=== PATIENT | male | born 1950 | race Caucasian/White ===

== ENCOUNTER → 2016-11-12 15:54 | Outpatient (CLI) | payer MEDICARE | END | disposition home or self-care (01) | LOC: D.MRI 15:54 | DX: M54.2 Cervicalgia (principal) ==

== ENCOUNTER → 2017-02-06 08:30 | Outpatient (CLI) | payer MEDICARE | END | disposition home or self-care (01) | LOC: D.RT 01-09 09:00 | DX: J44.9 Chronic obstructive pulmonary disease, unspecified (principal) ==

== ENCOUNTER → 2017-03-16 13:21 | Outpatient (CLI) | payer MEDICARE ==
[2017-03-17 11:17] LABS: ANA REFLEX - DIRECT Negative (Negative)
== END | disposition home or self-care (01) ==
LOC: D.CT 13:21
PROVIDERS: Internal Medicine Pulmonary Disease
DX: R93.8 Abnormal findings on diagnostic imaging of other specified body structures (principal)

== ENCOUNTER 2017-08-14 22:25 | Emergency (ER) | payer MEDICARE ==
[2017-08-14 23:23] LABS: BASOPHILS 0.2 % (0-2); HEMATOCRIT 46.5 % (42.0-54.0); HEMOGLOBIN 16.3 g/dL (13.5-17.5); IMMATURE GRANULOCYTES 0.6 % (0-5); LYMPHOCYTES 31.7 % (15-50); MCH 30.5 pg (26.0-34.0); MCHC 35.1 g/dL (31.0-37.0); MCV 86.9 fL (80.0-100.0); MEAN PLATELET VOLUME 9.4 fL (7.4-10.4); MONOCYTES 8.7 % (2-11); NEUTROPHILS 56.8 % (40-80); PLATELET COUNT 206 10x3/uL (130-400); RBC 5.35 10x6/uL (4.20-6.10); WBC 11.6 10x3/uL (4.8-10.8)
[2017-08-14 23:44] LABS: ALBUMIN 3.6 g/dL (3.4-5.0); ANION GAP 15.1 mmol/L (8-16); BILIRUBIN - TOTAL 0.27 mg/dL (0.2-1.3); CALCIUM 9.3 mg/dL (8.5-10.1); CARBON DIOXIDE 27.5 mmol/L (21.0-32.0); CREATININE - SERUM 1.5 mg/dL (0.6-1.3); POTASSIUM - SERUM 3.6 mmol/L (3.5-5.1); PROTEIN - SERUM 7.3 g/dL (6.4-8.2)
[2017-08-14 23:53] LABS: TROPONIN-I 0.022 ng/mL (0.000-0.060)
== END 2017-08-15 00:40 | disposition home or self-care (01) ==
LOC: D.ER 22:25
PROVIDERS: Emergency Medicine
DX: I10 Essential (primary) hypertension (principal); F17.200 Nicotine dependence, unspecified, uncomplicated; I44.7 Left bundle-branch block, unspecified

== ENCOUNTER 2017-10-23 17:26 | Emergency (ER) | payer MEDICARE | END 2017-10-23 21:07 | disposition home or self-care (01) | LOC: D.ER 17:26 | DX: K02.9 Dental caries, unspecified (principal); K08.89 Other specified disorders of teeth and supporting structures; S02.5XXA Fracture of tooth (traumatic), initial encounter for closed fracture; I10 Essential (primary) hypertension ==

== ENCOUNTER → 2017-12-25 10:34 | Outpatient (CLI) | payer MEDICARE ==
[~2017-12-25 10:34] MED LIST: BROVANA15 MCG/2 M INH; INDERAL LA120 MG PO; LIPITOR40 MG PO; PROVENTIL/2.5 MG/3 M INH
[2018-02-04 07:09] VITALS: BMI 30.4
== END | disposition home or self-care (01) ==
LOC: D.CT 10:34
DX: J44.9 Chronic obstructive pulmonary disease, unspecified (principal); I73.9 Peripheral vascular disease, unspecified

== ENCOUNTER 2018-02-04 06:16 | Outpatient (CLI) | payer MEDICARE ==
[~2018-02-04] VITALS: Ht 172.7 cm; Wt 90.9 kg
--- NOTE | ~2018-02-04 | HEMODYNAMI ---
PATIENT:CISCO MCNEAL MEDICAL RECORD: [id number] : 50 LOCATION:[facility] ADMISSION DATE: 02/04/18 Generatedon:02/04/20189:22 Patient name: CISCO MCNEAL Patient #: [id number] SSN: DO B: 1950 Date of study: 02/04/2018 Page: Of Hemodynamic Procedure Report Patient Data Patient Demographics Procedure consent was obtained First Name: CISCO Gender: Male Last Name: ELIZABET : 1950 Middle Initial: PINEDA Age: 67 year(s) Patient #: [id number] Race: Unknown Additional ID: [id number] Contact details Address: [address] [place] [address] State: [place] City: [place] Zip code: [address] Admission Admission Data Admission Date: 02/04/2018 Admission Time: 6:16 Procedure Procedure Types Cath Procedure Peripheral Cath Diagnostic Procedure Abd/Extremity Extremities Bilat Lower Extremity Procedure Description Procedure Date Procedure Date: 02/04/2018 Procedure Start Time: 8:30 Procedure Staff Name Function Yaw Washburn MD Performing Physician Alexey Grove RT Monitor Stephanie Arce RT Scrub Lynn Thomas RN Nurse Procedure Data Cath Procedure Fluoroscopy Diagnostic fluoroscopy Total fluoroscopy Time: 5.1 time: 5.1 min min Diagnostic fluoroscopy Total fluoroscopy dose: 562 dose: 562 mGy mGy Contrast Material Contrast Material Type Amount (ml) Isovue 300 125 Entry Location Entry Primary Successful Side Size Upsize Upsize Entry Closure Succes sful Closure Location (Fr) 1 (Fr) 2 (Fr) Remarks Device Remarks Femoral Right 5 Fr artery Procedure Medications Medication Administration Route Dosage Lidocaine 1% added to field 20 Heparin Flush Bag added to field 3 bags (1000units/500ml NS) Versed I.V. 1 mg Fentanyl I.V. 50 mcg Hemodynamics Rest Heart Rate: 63 (bpm) Snapshots Pre Cath Intra NCS Post Cath Vital Signs Time Heart Resp SPO2 etCO2 NIBP (mmHg) Rhythm Pain Sedation Rate (ipm) (%) (mmHg) Status Level (bpm) 7:51:13 61 97 38.2 171/79(137) NSR 0 (11) 10(A) , No pain 7:55:40 60 16 97 35.9 157/82(140) NSR 0 (11) 10(A) , No pain 8:00:04 66 11 97 32.9 145/88(123) NSR 0 (11) 10(A) , No pain 8:05:03 74 19 98 32.9 Measuring NSR 0 (11) 10(A) , No pain 8:05:36 65 15 97 37.4 169/88(145) NSR 0 (11) 10(A) , No pain 8:09:58 73 13 96 35.9 166/87(138) NSR 0 (11) 10(A) , No pain 8:14:20 59 7 97 39.7 153/79(132) NSR 0 (11) 10(A) , No pain 8:18:42 66 14 97 33.7 163/89(136) NSR 0 (11) 10(A) , No pain 8:23:02 61 17 97 38.2 150/78(136) NSR 0 (11) 10(A) , No pain 8:27:25 63 17 98 36.7 162/86(145) NSR 0 (11) 10(A) , No pain 8:31:49 59 18 98 35.9 163/82(140) NSR 0 (11) 10(A) , No pain 8:36:13 64 19 98 39.6 156/91(143) NSR 0 (11) 8(A) , No pain 8:40:33 69 21 97 35.2 176/98(149) NSR 0 (11) 8(A) , No pain 8:45:00 65 18 97 28.4 168/86(127) NSR 0 (11) 8(A) , No pain 8:49:26 70 5 97 30 161/86(132) NSR 0 (11) 8(A) , No pain 8:53:48 69 18 97 0 165/84(134) NSR 0 (11) 8(A) , No pain 8:58:14 69 17 97 0 160/85(128) NSR 0 (11) 8(A) , No pain 9:02:40 65 15 97 38.9 164/82(130) NSR 0 (11) 8(A) , No pain 9:07:01 67 17 97 38.9 159/91(139) NSR 0 (11) 8(A) , No pain 9:11:25 65 13 97 39.7 165/91(125) NSR 0 (11) 8(A) , No pain 9:15:47 71 20 97 34.4 167/99(139) NSR 0 (11) 8(A) , No pain 9:20:11 71 19 96 24.7 169/91(143) NSR 0 (11) 8(A) , No pain Medications Time Medication Route Dose Verified Delivered Reason Notes Effect iveness by by 7:45:52 Lidocaine 1% added 20ml Yaw Tidwell used for to vial Maddison Washburn MD procedure field GARZA 7:46:10 Heparin Flush added 3 Yaw Tidwell used for Bag to bags Maddison Washburn MD procedure (1000units/500ml field GARZA NS) 8:34:23 Versed I.V. 1 mg Yaw Bailey for William Washburn RN sedation 8:34:33 Fentanyl I.V. 50 Yaw Lynn for mcg William Washburn RN sedation Procedure Log Time Note 7:38:23 Alexey Grove RT (R) (CV) sent for patient. Start room use. 7:38:34 Time tracking: Regular hours (M-F 7:00 - 5:00) 7:38:38 Plan of Care:Hemodynamics will remain stable., Cardiac rhythm will remain stable., Comfort level will be maintained., Respiratory function will remain adequate., Patient/ family verbilizes understanding of procedure., Procedure tolerated without complication., Recovers from procedure without complications.. 7:38:59 Patient received from Outpatients to IR Alert and oriented. Tansferred to table in Supine position. 7:39:00 Correct patient and procedure confirmed by team. 7:39:03 Signed procedure consent form obtained from patient. 7:39:04 ECG and BP/O2 sat monitors applied to patient. 7:39:05 Full Disclosure recording started 7:39:05 7:39:09 H&P Date Dictated: 02/04/2018 H&P Addendum completed by physician on day of procedure. (MUST COMPLETE FOR ALL OUTPATIENTS). 7:39:10 Pre-procedure instructions explained to patient. 7:39:11 Pre-op teaching completed and patient verbalized understanding. 7:39:12 Family in waiting room. 7:39:14 Patient NPO since Midnight. 7:39:19 Is the patient allergic to Iodine/contrast media? No. 7:39:20 Is patient on blood thinner?Yes 7:39:22 ACC The patient was administered the following blood thiners within the last 24 hours: ACCAspirin 7:39:24 Patient diabetic? No. 7:39:29 7:39:29 ----Pre-sedation anethsthesia assessment.---- 7:39:33 Previous problem with sedation/anesthesia? No ? 7:39:34 Snore? No 7:39:36 Sleep apnea? No 7:39:37 Deviated septum? No 7:39:38 Opens mouth fully? Yes 7:39:39 Sticks out tongue? Yes 7:39:46 Airway obstruction? Yes copd 7:39:50 Dentures? Yes out 7:39:53 7:45:52 Lidocaine 1% 20ml vial added to field was administered by Yaw Washburn MD; used for procedure; 7:46:10 Heparin Flush Bag (1000units/500ml NS) 3 bags added to field was administered by Yaw Washburn MD; used for procedure; 7:49:42 Use device set IR Diagnostic 7:49:43 ACIST Syringe (80255) opened to sterile field. 7:49:43 ACIST Hand Control (54346) opened to sterile field. 7:49:44 ACIST Manifold (19500) opened to sterile field. 7:49:44 Bag Decanter (2002S) opened to sterile field. 7:49:45 Sterile Angiographic Pack opened to sterile field. 7:49:45 Tegaderm 4 x 4 (1626W) opened to sterile field. 7:49:51 Vital chart was started 7:49:52 Baseline sample Acquired. 7:49:58 Pre procedure: right dorsailis pedis pulse Doppler 7:50:01 Pre procedure: left dorsailis pedis pulse Doppler 7:50:04 Pre procedure: right posterior tibial pulse Doppler 7:50:08 Pre procedure: left posterior tibial pulse Doppler 7:50:12 Patient pain scale 0/10 no pain. 7:50:18 IV patent on arrival in left hand with 0.9% NaCl at KVO. 7:50:32 Bilateral groins area was prepped with chlora-prep and draped in sterile fashion 7:50:34 Alarms reviewed by R. N. 7:50:34 Sharps counted by scrub and verified by R.N. 8:29:38 Physician arrived 8:29:38 --------ALL STOP TIME OUT------ 8:29:40 Final Timeout: patient, procedure, and site verified with staff and physician. All members of the team are in agreement. 8:29:48 Bilateral groins site verified by team. 8:29:52 Sedation plan: IV Moderate Sedation Medication:Versed, Fentanyl 8:30:09 Procedure started. 8:30:12 Local anesthetic to left femerol artery with Lidocaine 1% by Yaw Washburn MD.INITIAL ACCESS ONLY 8:30:33 Micropuncture VSI 4FR kit opened to sterile field. 8:30:33 SHEATH 5FR Tutor Key (ETE481) opened to sterile field. 8:30:34 TUBING Contrast Injection High Pressure (ENJ474A) opened to sterile field. 8:30:34 TUBING Contrast Injection High Pressure (UBV689P) opened to sterile field. 8:30:35 DOC .035 wire (S76958) opened to sterile field. 8:30:35 ALAS 260 wire (D54004) opened to sterile field. 8:30:35 SHEATH 6FR Destination (RSR01) opened to sterile field. 8:30:36 Angiodynamics Omniflush 5Fr 65cm (88465726) opened to sterile field. 8:30:45 A 5 Fr sheath was inserted into the Right Femoral artery 8:34:23 Versed 1 mg I.V. was administered by Lynn Thomas RN; for sedation; 8:34:33 Fentanyl 50 mcg I.V. was administered by Lynn Thomas RN; for sedation; 8:42:36 GLIDE WIRE ANGLE 260cm (OA7961) opened to sterile field. 8:43:02 TORQUE DEVICE PLASTIC .038 ( TD01) opened to sterile field. 8:45:42 GLIDE CATHETER 5FR ANGLED 100cm (CG508) opened to sterile field. 8:52:32 AMPLATZ Super stiff 3mm J 260cm wire ([id number]) opened to sterile field. 9:08:57 EXOSEAL 5Fr (EX500) opened to sterile field. 9:09:03 Procedure ended.(Physican Out) 9:09:20 Fluoroscopy time 05.10 minutes. 9:09:24 Fluoroscopy dose: 562 mGy 9:09:24 Flurop Dose total: 562 9:09:27 Sharps counted by scrub and verified by R.N. 9:09:28 Insertion/operative site no bleeding no hematoma. 9:09:32 Post-op/insertion site Left Femoral artery dressed using a 4 x 4 and Tegaderm. 9:10:48 Post right femoral artery:stable 9:11:24 Post Procedure Pulses reassessed and unchanged 9:11:29 Post procedure instruction explained to patient.Patient verbalizes understanding. 9:11:36 Procedure and supply charges have been captured, reviewed, submitted and are correct. 9:15:08 Contrast amount:Isovue 300 125ml. 9:22:13 Report given to Outpatients. 9:22:16 Patient transfered to Outpatients with Stretcher. 9:22:55 Vital chart was stopped Device Usage Item Name Manufacture Quantity Catalog Hospital Part Current Minim al Lot# / Number Charge Number Stock Stock Serial# Code ACIST Syringe Acist Medical 1 57560 703370 493394 908947 20 (24432) Systems Inc ACIST Hand Acist Medical 1 22575 466889 500643 621037 5 Control Systems Inc (86683) ACIST Acist Medical 1 33723 911990 246725 356415 5 Manifold Systems Inc (53904) Bag Decanter Microtek 1 2001S 705044 20836 172248 5 (2001S) Medical Inc. Sterile Cardinal 1 [id number] 702506 820202 5 Angiographic Health Pack Tegaderm 4 x 3M 1 1626W 941151 531968 583117 5 4 (1626W) Micropuncture VSI VASCULAR 1 7266V 802242 863250 5 VSI 4FR kit SOLUTIONS SHEATH 5FR Terumo 1 XBX548 805748 238230 106371 40 Tutor Key (ROH330) TUBING [facility] 2 DUK144B 069424 893082 679168 5 Contrast Injection High Pressure (BFS194P) DOC .035 wire [employer] 1 E44713 461422 887979 5 (L99736) ALAS 260 [employer] 1 J59992 364371 60303 283272 5 0311508 wire (D19998) SHEATH 6FR Terumo 1 RSR01 800643 64091 272122 5 Destination (RSR01) Angiodynamics Angiodynamics 1 18126206 484776 563720 445592 5 Omniflush 5Fr 65cm (42222719) GLIDE WIRE Terumo 1 DD3957 455783 530255 051592 5 ANGLE 260cm (VM7371) TORQUE DEVICE [place] 1 TD01 129077 023156 379039 5 PLASTIC .038 Scientific ( TD01) GLIDE Terumo 1 CG508 982284 64171 497258 4 CATHETER 5FR ANGLED 100cm (CG508) AMPLATZ Super [place] 1 [id number] 501088 075303 5 stiff 3mm J Scientific 260cm wire ([id number]) EXOSEAL 5Fr Cardinal 1 EX500 868540 650723 217177 10 [id number] (EX500) Health Signature Audit [place] Stage Time Signature Unsigned Intra-Procedure 02/04/2018 Alexey 9:22:52 AM [place] RT (R) (CV) Signatures Monitor : Alexey Signature : [place] RT Date : Time : [facility] [address] [facility] [address] [place] [address]
[2018-02-04 06:36] LABS: BASOPHILS 0.2 % (0-2); EOSINOPHILS 1.8 % (0-7); HEMATOCRIT 45.4 % (42.0-54.0); HEMOGLOBIN 15.9 g/dL (13.5-17.5); IMMATURE GRANULOCYTES 0.3 % (0-5); LYMPHOCYTES 29.6 % (15-50); MCH 30.7 pg (26.0-34.0); MCV 87.6 fL (80.0-100.0); MEAN PLATELET VOLUME 9.3 fL (7.4-10.4); MONOCYTES 10.9 % (2-11); NEUTROPHILS 57.2 % (40-80); RBC 5.18 10x6/uL (4.20-6.10); RDW 13.6 % (11.5-14.5)
[2018-02-04 06:42] LABS: PLATELET COUNT 158 10x3/uL (130-400)
[2018-02-04 06:47] LABS: ANION GAP 12.7 mmol/L (8-16); CALCIUM 8.5 mg/dL (8.5-10.1); CARBON DIOXIDE 26.9 mmol/L (21.0-32.0); CREATININE - SERUM 1.3 mg/dL (0.6-1.3); POTASSIUM - SERUM 3.6 mmol/L (3.5-5.1)
[2018-02-04 06:48] LABS: APTT 26.5 SECONDS (22.8-39.4); INR 0.96 (0.85-1.17); PROTIME 12.4 SECONDS (11.6-15.0)
[2018-02-04] MEDS ORDERED: BROVANA15 MCG/2 M INH (06:54)
[2018-02-04] MEDS ORDERED: PROVENTIL/2.5 MG/3 M INH (06:56)
[2018-02-04] MEDS ORDERED: INDERAL LA120 MG PO (06:56)
[2018-02-04] MEDS ORDERED: LIPITOR40 MG PO (06:58)
[2018-02-04 07:09] VITALS: Ht 172.7 cm; Wt 90.9 kg
== END 2018-02-04 12:40 | disposition home or self-care (01) ==
LOC: D.SP 06:16
PROVIDERS: General Practice
DX: I70.293 Other atherosclerosis of native arteries of extremities, bilateral legs (principal); I70.92 Chronic total occlusion of artery of the extremities; Z01.812 Encounter for preprocedural laboratory examination

== ENCOUNTER 2018-03-02 10:55 | Outpatient (CLI) | payer MEDICARE ==
[~2018-03-02] VITALS: Ht 172.7 cm; Wt 90.9 kg
--- NOTE | ~2018-03-02 | HEMODYNAMI ---
PATIENT:CISCO MCNEAL MEDICAL RECORD: [id number] : 50 LOCATION:[facility] ADMISSION DATE: 03/02/18 Generatedon:03/02/201814:19 Patient name: CISCO MCNEAL Patient #: [id number] SSN: DO B: 1950 Date of study: Page: Of Hemodynamic Procedure Report Patient Data Patient Demographics Procedure consent was obtained First Name: CISCO Gender: Male Last Name: ELIZABET : 1950 Middle Initial: PINEDA Age: 68 year(s) Patient #: [id number] Race: Unknown Additional ID: [id number] Contact details Address: [address] [place] [address] State: [place] City: [place] Zip code: [address] Admission Admission Data Admission Date: 03/02/2018 Admission Time: 10:55 Procedure Procedure Types Cath Procedure Peripheral Cath Diagnostic Procedure Miscellaneous Procedure Description Procedure Staff Name Function Yaw Washburn MD Performing Physician Alexey Grove RT Monitor Stephanie Arce RT Scrub Lynn Thomas RN Nurse Ab Gamboa MD Additional personnel Hemodynamics Rest Heart Rate: 56 (bpm) Snapshots Pre Cath Intra NCS Post Cath Vital Signs Time Heart Resp SPO2 etCO2 NIBP (mmHg) Rhythm Pain Sedation Rate (ipm) (%) (mmHg) Status Level (bpm) 13:42:46 56 24 95 31.5 Measuring NSR 0 (11) 10(A) , No pain 13:43:09 56 24 95 36 158/76(124) NSR 0 (11) 10(A) , No pain 13:48:08 56 24 97 33 Measuring NSR 0 (11) 10(A) , No pain 13:48:16 57 24 97 27 148/76(118) NSR 0 (11) 10(A) , No pain 13:52:40 55 10 97 33.8 156/73(123) NSR 0 (11) 10(A) , No pain 13:57:07 53 23 97 33.8 159/73(121) NSR 0 (11) 10(A) , No pain 14:01:29 56 4 98 33.8 151/86(114) NSR 0 (11) 10(A) , No pain 14:05:28 56 97 33 No Cuff NSR 0 (11) 10(A) , No pain 14:09:28 53 19 98 21.8 No Cuff NSR 0 (11) 10(A) , No pain 14:13:28 57 7 98 38.3 No Cuff NSR 0 (11) 10(A) , No pain 14:17:27 56 10 98 37.6 No Cuff NSR 0 (11) 10(A) , No pain Procedure Log Time Note 13:21:59 Alexey Grove RT (R) (CV) sent for patient. Start room use. 13:22:13 Time tracking: Regular hours (M-F 7:00 - 5:00) 13:22:18 Plan of Care:Hemodynamics will remain stable., Cardiac rhythm will remain stable., Comfort level will be maintained., Respiratory function will remain adequate., Patient/ family verbilizes understanding of procedure., Procedure tolerated without complication., Recovers from procedure without complications.. 13:22:26 Patient received from Outpatients to IR Alert and oriented. Tansferred to table in Supine position. 13:22:33 Warm blankets applied, and dex hugger turned on for patient comfort. 13:22:35 Correct patient and procedure confirmed by team. 13:22:36 Signed procedure consent form obtained from patient. 13:22:38 ECG and BP/O2 sat monitors applied to patient. 13:22:43 - 13:22:47 H&P Date Dictated: 03/02/2018 H&P Addendum completed by physician on day of procedure. (MUST COMPLETE FOR ALL OUTPATIENTS). 13:22:49 Pre-procedure instructions explained to patient. 13:22:50 Pre-op teaching completed and patient verbalized understanding. 13:22:53 Family in waiting room. 13:22:57 Patient NPO since Midnight. 13:23:19 SEE ANESTHESIA NOTE FOR POST PROCEDURE TIVA 13:23:20 - 13:23:33 ACIST Syringe (24674) opened to sterile field. 13:23:34 ACIST Hand Control (01337) opened to sterile field. 13:23:34 ACIST Manifold (27819) opened to sterile field. 13:23:35 Bag Decanter () opened to sterile field. 13:23:36 Sterile Angiographic Pack opened to sterile field. 13:23:37 Tegaderm 4 x 4 (1626W) opened to sterile field. 13:33:39 KAITLIN SALGUERO present and monitoring patient for TIVA. 13:35:05 Right groin area was prepped with chlora-prep and draped in sterile fashion 13:35:08 Right PEDAL area was prepped with chlora-prep and draped in sterile fashion 13:40:58 Vital chart was started 13:41:01 Baseline sample Acquired. 13:45:20 Pre procedure: right dorsailis pedis pulse Doppler 13:45:23 Pre procedure: left dorsailis pedis pulse Doppler 13:45:26 Pre procedure: right posterior tibial pulse Doppler 14:17:59 CASE CX DUE TO EKG ABNORMALITY 14:18:13 PT SENT BACK TO ROOM 14:19:08 Vital chart was stopped Device Usage Item Name Manufacture Quantity Catalog Hospital Part Current Minimal Lot# / Number Charge Number Stock Stock Serial# Code ACIST Acist 1 20338 884517 755780 769623 20 Syringe Medical (70788) Systems Inc ACIST Hand Acist 1 13582 262623 612263 362606 5 Control Medical (57567) Systems Inc ACIST Acist 1 18470 093477 042172 037303 5 Manifold Medical (05504) Systems Inc Bag Decanter Microtek 1 301540 40802 312544 5 () Medical Inc. Sterile Cardinal 1 [id number] 944451 820469 5 Angiographic Health Pack Tegaderm 4 x 3M 1 1626W 952784 971467 974700 5 4 (1626W) Signature Audit [place] Stage Time Signature Unsigned Intra-Procedure 03/02/2018 Alexey 2:19:06 PM [place] RT (R) (CV) Signatures Monitor : Alexey Signature : [place] RT Date : Time : [place] [id number] [place] [address]
[2018-03-02 11:31] LABS: BASOPHILS 0.2 % (0-2); EOSINOPHILS 1.6 % (0-7); HEMATOCRIT 42.1 % (42.0-54.0); HEMOGLOBIN 14.7 g/dL (13.5-17.5); IMMATURE GRANULOCYTES 0.3 % (0-5); LYMPHOCYTES 25.5 % (15-50); MCH 30.7 pg (26.0-34.0); MCHC 34.9 g/dL (31.0-37.0); MCV 87.9 fL (80.0-100.0); MEAN PLATELET VOLUME 10.2 fL (7.4-10.4); MONOCYTES 13.6 % (2-11); NEUTROPHILS 58.8 % (40-80); PLATELET COUNT 167 10x3/uL (130-400); RBC 4.79 10x6/uL (4.20-6.10); RDW 14.3 % (11.5-14.5)
[2018-03-02 11:32] LABS: ANION GAP 12.6 mmol/L (8-16); CALCIUM 8.9 mg/dL (8.5-10.1); CARBON DIOXIDE 26.4 mmol/L (21.0-32.0); CREATININE - SERUM 1.1 mg/dL (0.6-1.3)
[2018-03-02 11:37] LABS: APTT 26.7 SECONDS (22.8-39.4); INR 0.98 (0.85-1.17); PROTIME 12.6 SECONDS (11.6-15.0)
[2018-03-02] MEDS ORDERED: NORVASC10 MG PO (12:14)
[2018-03-02] MEDS ORDERED: COZAAR100 MG PO (12:15)
[2018-03-02] MEDS ORDERED: METOPROLOL TART50 MG PO (12:17)
[2018-03-02 12:23] VITALS: BP 172/75; Ht 172.7 cm; Wt 90.9 kg
[2018-03-02] MEDS ORDERED: FLOVENT DI50 MCG/DIS INH (12:30)
[2018-03-02] MEDS ORDERED: PLAVIX75 MG PO (12:30)
== END 2018-03-02 14:53 | disposition home or self-care (01) ==
LOC: D.SP 10:55 → D.RAD 12:00 → D.SP 12:00
PROVIDERS: General Practice
DX: I73.9 Peripheral vascular disease, unspecified (principal); R07.9 Chest pain, unspecified; Z01.812 Encounter for preprocedural laboratory examination; Z53.09 Procedure and treatment not carried out because of other contraindication

== ENCOUNTER 2018-03-02 17:35 | Emergency (ER) | payer MEDICARE ==
[~2018-03-02] VITALS: Ht 172.7 cm; Wt 90.9 kg
[~2018-03-02 17:35] MED LIST changes: +COZAAR100 MG PO; +FLOVENT DI50 MCG/DIS INH; +METOPROLOL TART50 MG PO; +NORVASC10 MG PO; +PLAVIX75 MG PO
[2018-03-02 17:39] VITALS: BP 140/74; Ht 172.7 cm; Wt 90.9 kg
[2018-03-02 18:18] LABS: BASOPHILS 0.2 % (0-2); EOSINOPHILS 1.4 % (0-7); HEMATOCRIT 42.2 % (42.0-54.0); HEMOGLOBIN 14.8 g/dL (13.5-17.5); IMMATURE GRANULOCYTES 0.3 % (0-5); LYMPHOCYTES 17.5 % (15-50); MCH 30.8 pg (26.0-34.0); MCHC 35.1 g/dL (31.0-37.0); MCV 87.9 fL (80.0-100.0); MEAN PLATELET VOLUME 10.2 fL (7.4-10.4); MONOCYTES 11.6 % (2-11); PLATELET COUNT 152 10x3/uL (130-400); RDW 14.3 % (11.5-14.5); WBC 11.7 10x3/uL (4.8-10.8)
[2018-03-02 18:42] LABS: ALBUMIN 3.2 g/dL (3.4-5.0); ALKALINE PHOSPHATASE 48 U/L (46-116); ALT (SGPT) 35 U/L (10-68); BILIRUBIN - TOTAL 0.37 mg/dL (0.2-1.3); CALC OSMOLALITY 281 mosm/kg (275-300); CALCIUM 8.7 mg/dL (8.5-10.1); CARBON DIOXIDE 30.3 mmol/L (21.0-32.0); CHLORIDE - SERUM 104 mmol/L (98-107); CREATININE - SERUM 1.2 mg/dL (0.6-1.3); GLUCOSE 129 mg/dL (74-106); POTASSIUM - SERUM 4.2 mmol/L (3.5-5.1); PROTEIN - SERUM 6.9 g/dL (6.4-8.2); SODIUM 139 mmol/L (136-145); UREA NITROGEN 18 mg/dL (7-18); eGFR NON AFRICAN AMERICAN 64 mL/min (90-120)
[2018-03-02 18:57] LABS: CKMB 3.8 U/L (0.0-3.6); CREATINE KINASE 87 UL (21-232); MAGNESIUM - SERUM 2.2 mg/dL (1.8-2.4)
[2018-03-02 19:04] LABS: TROPONIN-I 0.072 ng/mL (0.000-0.060)
== END 2018-03-02 19:01 | disposition left against medical advice (07) ==
LOC: D.ER 17:35
PROVIDERS: Family Medicine
DX: R07.9 Chest pain, unspecified (principal); T17.928A Food in respiratory tract, part unspecified causing other injury, initial encounter; X58.XXXA Exposure to other specified factors, initial encounter; Y93.89 Activity, other specified; Y92.019 Unspecified place in single-family (private) house as the place of occurrence of the external cause; R79.89 Other specified abnormal findings of blood chemistry; I10 Essential (primary) hypertension; J44.9 Chronic obstructive pulmonary disease, unspecified; F17.200 Nicotine dependence, unspecified, uncomplicated; I44.7 Left bundle-branch block, unspecified

== ENCOUNTER 2018-03-12 19:26 | Inpatient (IN) | payer MEDICARE ==
[~2018-03-12] VITALS: Ht 172.7 cm; Wt 92.7 kg
[2018-03-12] MEDS ORDERED: ALBUTEROL2.5 MG/3 M INH ×2 (20:21→23:21)
[2018-03-12 21:10] LABS: ALBUMIN 3.5 g/dL (3.4-5.0); ANION GAP 10.4 mmol/L (8-16); BILIRUBIN - TOTAL 0.3 mg/dL (0.2-1.3); CALCIUM 8.8 mg/dL (8.5-10.1); CARBON DIOXIDE 27.2 mmol/L (21.0-32.0); CREATININE - SERUM 1.3 mg/dL (0.6-1.3); POTASSIUM - SERUM 3.6 mmol/L (3.5-5.1); PROTEIN - SERUM 7.3 g/dL (6.4-8.2)
[2018-03-12 21:14] LABS: BASOPHILS 0.2 % (0-2); EOSINOPHILS 2.9 % (0-7); HEMATOCRIT 44.5 % (42.0-54.0); HEMOGLOBIN 15.7 g/dL (13.5-17.5); IMMATURE GRANULOCYTES 0.3 % (0-5); LYMPHOCYTES 26.5 % (15-50); MCHC 35.3 g/dL (31.0-37.0); MCV 87.9 fL (80.0-100.0); MEAN PLATELET VOLUME 9.4 fL (7.4-10.4); MONOCYTES 8.7 % (2-11); NEUTROPHILS 61.4 % (40-80); RBC 5.06 10x6/uL (4.20-6.10); RDW 14.3 % (11.5-14.5); WBC 11.2 10x3/uL (4.8-10.8)
[2018-03-12 21:20] LABS: PLATELET COUNT 200 10x3/uL (130-400)
[2018-03-12 23:10] VITALS: BP 155/78; BMI 31.0
[2018-03-12] MEDS ORDERED: FLUTICASONE PRO16 GM NASAL (23:21)
[2018-03-12] MEDS ORDERED: BROVANA15 MCG/2 M INH (23:21)
[2018-03-12] MEDS ORDERED: METOPROLOL TART50 MG PO (23:22)
[2018-03-12] MEDS ORDERED: COZAAR100 MG PO (23:22)
[2018-03-12] MEDS ORDERED: NORVASC10 MG PO (23:22)
[2018-03-12] MEDS ORDERED: PLAVIX75 MG PO (23:23)
[2018-03-13 07:51] LABS: BASOPHILS 0.2 % (0-2); EOSINOPHILS 2.8 % (0-7); HEMATOCRIT 40.6 % (42.0-54.0); IMMATURE GRANULOCYTES 0.2 % (0-5); LYMPHOCYTES 30.1 % (15-50); MCH 30.6 pg (26.0-34.0); MCHC 34.5 g/dL (31.0-37.0); MCV 88.6 fL (80.0-100.0); MEAN PLATELET VOLUME 9.3 fL (7.4-10.4); MONOCYTES 11.8 % (2-11); NEUTROPHILS 54.9 % (40-80); PLATELET COUNT 190 10x3/uL (130-400); RBC 4.58 10x6/uL (4.20-6.10); RDW 14.4 % (11.5-14.5); WBC 9.5 10x3/uL (4.8-10.8)
[2018-03-13 07:54] LABS: ANION GAP 11.4 mmol/L (8-16); CALCIUM 8.2 mg/dL (8.5-10.1); CARBON DIOXIDE 27.4 mmol/L (21.0-32.0); CREATININE - SERUM 1.3 mg/dL (0.6-1.3); POTASSIUM - SERUM 3.8 mmol/L (3.5-5.1)
[2018-03-13 07:59] VITALS: BP 113/71
[2018-03-13 09:58] VITALS: Ht 172.7 cm; Wt 92.7 kg
[2018-03-13 20:56] VITALS: BP 113/60
[2018-03-14 04:55] VITALS: BP 124/64
[2018-03-14 05:29] LABS: BASOPHILS 0.2 % (0-2); EOSINOPHILS 2.6 % (0-7); HEMATOCRIT 42.3 % (42.0-54.0); HEMOGLOBIN 14.6 g/dL (13.5-17.5); IMMATURE GRANULOCYTES 0.4 % (0-5); LYMPHOCYTES 21.6 % (15-50); MCH 30.6 pg (26.0-34.0); MCHC 34.5 g/dL (31.0-37.0); MCV 88.7 fL (80.0-100.0); MEAN PLATELET VOLUME 9.3 fL (7.4-10.4); MONOCYTES 12.5 % (2-11); NEUTROPHILS 62.7 % (40-80); PLATELET COUNT 196 10x3/uL (130-400); RBC 4.77 10x6/uL (4.20-6.10); RDW 14.3 % (11.5-14.5)
[2018-03-14 05:37] LABS: WBC 12.8 10x3/uL (4.8-10.8)
[2018-03-14 05:53] LABS: ALBUMIN 3.4 g/dL (3.4-5.0); ANION GAP 11.6 mmol/L (8-16); BILIRUBIN - TOTAL 0.33 mg/dL (0.2-1.3); CALCIUM 8.8 mg/dL (8.5-10.1); CARBON DIOXIDE 26.4 mmol/L (21.0-32.0); CREATININE - SERUM 1.4 mg/dL (0.6-1.3)
[2018-03-14 08:49] VITALS: BP 150/54
[2018-03-14] MEDS ORDERED: CHLORTHALIDONE25 MG PO (11:30)
[2018-03-14] MEDS ORDERED: CATAPRES0.1 MG PO (11:31)
[2018-03-14] MEDS ORDERED: ALDACTONE100 MG PO (11:31)
[2018-03-14] MEDS ORDERED: FLORAJEN3 CAPS460 MG PO (11:32)
[2018-03-14] MEDS ORDERED: CLEOCIN HCL300 MG PO (11:32)
[2018-03-14] MEDS ORDERED: ZOVIRAX400 MG PO (11:34)
[2018-03-14] MEDS ORDERED: SILVADENE20 GM TP (11:34)
[2018-03-14] MEDS ORDERED: HYDROCODONE-APA1 TAB PO (11:35)
== END 2018-03-14 13:31 | disposition home or self-care (01) | DRG 603 ==
LOC: D.MS 19:26
PROVIDERS: Family Medicine
DX: L03.113 Cellulitis of right upper limb (principal); J44.9 Chronic obstructive pulmonary disease, unspecified; I10 Essential (primary) hypertension; F17.200 Nicotine dependence, unspecified, uncomplicated

== ENCOUNTER 2018-04-27 09:21 | Outpatient (CLI) | payer MEDICARE ==
[~2018-04-27] VITALS: Ht 172.7 cm; Wt 90.9 kg
--- NOTE | ~2018-04-27 | HEMODYNAMI ---
PATIENT:CISCO MCNEAL MEDICAL RECORD: [id number] : 50 LOCATION:[facility] ADMISSION DATE: 04/27/18 Generatedon:04/27/201815:13 Patient name: CISCO MCNEAL Patient #: [id number] SSN: DO B: 1950 Date of study: 04/27/2018 Page: Of Hemodynamic Procedure Report Patient Data Patient Demographics Procedure consent was obtained First Name: CISCO Gender: Male Last Name: ELIZABET : 1950 Middle Initial: PINEDA Age: 68 year(s) Patient #: [id number] Race: Unknown Additional ID: [id number] Contact details [address]: [address] [place] [address] State: [place] City: [place] Zip code: [address] Admission Admission Data Admission Date: 04/27/2018 Admission Time: 9:21 Procedure Procedure Types Cath Procedure Peripheral Cath Diagnostic Procedure Abd/Extremity Extremities Procedure Description Procedure Date Procedure Date: 04/27/2018 Procedure Start Time: 12:29 Procedure Staff Name Function Alexey Grove RT Monitor Jone Veliz MD Additional personnel Yaw Washburn MD Performing Physician Stephanie Ulloa Scrub Lynn Thomas RN Nurse Janey Parks RN Nurse Procedure Data Cath Procedure Fluoroscopy Diagnostic fluoroscopy Total fluoroscopy Time: time: 20.1 min 20.1 min Diagnostic fluoroscopy Total fluoroscopy dose: 554 dose: 554 mGy mGy Contrast Material Contrast Material Type Amount (ml) Isovue 300 106 Entry Location Entry Primary Successful Side Size Upsize Upsize Entry Closure Lopes ccessful Closure Location (Fr) 1 (Fr) 2 (Fr) Remarks Device Remarks Brachial Left 5 Fr 6 Fr Manual artery Long Compression Diagnostic catheters Device Type Used For End Catheter Placement Merit ULTRA BOLUS FLUSH 5Fr 90CM catheter ([id number]) Procedure Medications Medication Administration Route Dosage Heparin Bolus I.V. 5000 units Heparin Bolus I.V. 2000 units Hemodynamics Rest Heart Rate: 54 (bpm) Snapshots Pre Cath Intra NCS Post Cath Vital Signs Time Heart Resp SPO2 etCO2 NIBP (mmHg) Rhythm Pain Sedation Rate (ipm) (%) (mmHg) Status Level (bpm) 12:04:23 52 17 98 0 136/68(93) NSR 0 (11) 10(A) , No pain 12:09:22 66 23 99 0 Measuring NSR 0 (11) 10(A) , No pain 12:09:27 59 27 98 0 118/59(86) NSR 0 (11) 10(A) , No pain 12:14:26 73 20 100 0 Measuring NSR 0 (11) 10(A) , No pain 12:14:28 73 20 100 0 169/92(137) NSR 0 (11) 10(A) , No pain 12:18:50 65 14 100 0 153/79(117) NSR 0 (11) 10(A) , No pain 12:21:11 63 14 100 0 140/72(106) NSR 0 (11) 10(A) , No pain 12:23:29 59 14 100 0 136/69(100) NSR 0 (11) 10(A) , No pain 12:26:29 62 15 100 0 Measuring NSR 0 () 10(A) , No pain 12:26:33 62 15 100 0 120/61(90) NSR 0 (11) 10(A) , No pain 12:28:46 60 15 100 0 113/57(86) NSR 0 (11) 10(A) , No pain 12:31:01 51 15 100 0 101/56(78) NSR 0 (11) 10(A) , No pain 12:33:08 51 15 100 0 97/49(61) NSR 0 (11) 10(A) , No pain 12:35:21 48 15 100 0 85/35(52) NSR 0 (11) 10(A) , No pain 12:37:30 48 15 100 0 79/40(63) NSR 0 (11) 10(A) , No pain 12:39:37 45 15 100 0 84/37(56) NSR 0 (11) 10(A) , No pain 12:41:46 46 15 100 0 74/40(62) NSR 0 (11) 10(A) , No pain 12:43:51 47 15 100 0 83/36(62) NSR 0 (11) 10(A) , No pain 12:45:58 62 15 100 0 73/40(60) NSR 0 (11) 10(A) , No pain 12:48:01 63 15 100 0 78/42(62) NSR 0 (11) 10(A) , No pain 12:50:06 64 14 100 0 83/44(67) NSR 0 (11) 10(A) , No pain 12:52:13 66 36 100 0 87/42(60) NSR 0 () 10(A) , No pain 12:54:18 66 10 100 0 97/53(72) NSR 0 (11) 10(A) , No pain 12:56:27 65 12 100 0 108/52(72) NSR 0 () 10(A) , No pain 12:58:36 66 12 100 0 104/56(72) NSR 0 () 10(A) , No pain 13:00:47 66 12 100 0 106/54(83) NSR 0 () 10(A) , No pain 13:02:56 65 12 100 0 117/60(95) NSR 0 () 10(A) , No pain 13:05:07 66 11 100 0 115/58(92) NSR 0 () 10(A) , No pain 13:07:19 63 12 100 0 98/48(66) NSR 0 () 10(A) , No pain 13:09:32 62 12 100 0 85/38(56) NSR 0 () 10(A) , No pain 13:11:38 60 12 100 0 82/45(67) NSR 0 (11) 10(A) , No pain 13:13:43 61 11 100 0 85/47(71) NSR 0 (11) 10(A) , No pain 13:15:49 61 12 100 0 87/51(74) NSR 0 (11) 10(A) , No pain 13:17:55 62 12 100 0 92/47(64) NSR 0 (11) 10(A) , No pain 13:20:02 62 11 100 0 99/52(72) NSR 0 (11) 10(A) , No pain 13:22:09 63 12 100 0 106/59(81) NSR 0 (11) 10(A) , No pain 13:24:19 63 12 100 0 110/63(82) NSR 0 (11) 10(A) , No pain 13:26:32 62 12 100 0 121/59(82) NSR 0 (11) 10(A) , No pain 13:28:47 62 11 100 0 111/60(84) NSR 0 (11) 10(A) , No pain 13:30:54 62 12 100 0 107/60(80) NSR 0 (11) 10(A) , No pain 13:33:05 62 12 100 0 113/57(68) NSR 0 (11) 10(A) , No pain 13:35:20 59 12 100 0 103/48(69) NSR 0 (11) 10(A) , No pain 13:37:29 59 12 100 0 103/54(92) NSR 0 (11) 10(A) , No pain 13:39:40 59 12 100 0 96/52(65) NSR 0 (11) 10(A) , No pain 13:41:49 61 12 100 0 105/52(78) NSR 0 (11) 10(A) , No pain 13:44:04 59 12 100 0 108/44(64) NSR 0 (11) 10(A) , No pain 13:46:18 64 12 100 0 100/44(65) NSR 0 (11) 10(A) , No pain 13:48:26 59 12 100 0 101/54(82) NSR 0 (11) 10(A) , No pain 13:50:33 62 12 100 0 94/55(73) NSR 0 (11) 10(A) , No pain 13:52:38 59 12 100 0 106/59(69) NSR 0 (11) 10(A) , No pain 13:54:52 64 12 100 0 108/53(76) NSR 0 (11) 10(A) , No pain 13:57:03 59 12 100 0 103/57(75) NSR 0 (11) 10(A) , No pain 13:59:12 60 12 100 0 106/61(79) NSR 0 (11) 10(A) , No pain 14:01:23 60 12 100 0 113/59(83) NSR 0 (11) 10(A) , No pain 14:03:38 58 12 100 0 101/49(68) NSR 0 (11) 10(A) , No pain 14:05:43 66 12 100 0 111/67(86) NSR 0 (11) 10(A) , No pain 14:07:50 63 11 100 0 119/75(103) NSR 0 (11) 10(A) , No pain 14:10:01 59 12 100 0 114/70(95) NSR 0 () 10(A) , No pain 14:12:10 62 11 100 0 122/69(96) NSR 0 (11) 10(A) , No pain 14:14:23 60 12 100 0 117/64(85) NSR 0 (11) 10(A) , No pain 14:16:34 64 12 100 0 110/57(78) NSR 0 (11) 10(A) , No pain 14:18:47 59 14 100 0 109/57(78) NSR 0 () 10(A) , No pain 14:20:56 63 14 100 0 108/64(73) NSR 0 (11) 10(A) , No pain 14:23:05 64 14 100 0 111/62(89) NSR 0 (11) 10(A) , No pain 14:25:15 61 13 100 0 119/69(97) NSR 0 (11) 10(A) , No pain 14:27:24 72 14 100 0 115/75(105) NSR 0 (11) 10(A) , No pain 14:29:35 62 13 100 0 123/65(85) NSR 0 (11) 10(A) , No pain 14:31:46 59 14 100 0 114/57(81) NSR 0 (11) 10(A) , No pain 14:33:57 58 13 100 0 107/55(72) NSR 0 (11) 10(A) , No pain 14:36:10 59 13 100 0 116/52(77) NSR 0 (11) 10(A) , No pain 14:38:21 60 14 100 0 107/56(78) NSR 0 (11) 10(A) , No pain 14:40:30 63 14 100 0 111/64(79) NSR 0 (11) 10(A) , No pain 14:42:39 63 4 100 0 110/68(86) NSR 0 (11) 10(A) , No pain 14:44:48 66 25 100 0 126/69(104) NSR 0 (11) 10(A) , No pain 14:47:00 68 25 100 0 132/81(103) NSR 0 (11) 10(A) , No pain 14:49:13 70 0 100 0 142/84(115) NSR 0 (11) 10(A) , No pain 14:51:26 70 28 99 0 139/86(106) NSR 0 (11) 10(A) , No pain 14:53:41 68 22 100 0 139/83(109) NSR 0 (11) 10(A) , No pain 14:55:58 67 23 100 0 140/80(104) NSR 0 (11) 10(A) , No pain 14:58:11 65 20 100 0 158/100(136) NSR 0 (11) 10(A) , No pain 15:01:09 69 11 99 0 Measuring NSR 0 (11) 10(A) , No pain 15:01:54 69 24 99 0 181/104(117) NSR 0 (11) 10(A) , No pain 15:03:59 0 No Cuff NSR 0 (11) 10(A) , No pain Medications Time Medication Route Dose Verified Delivered Reason Notes Effectivenes s by by 12:53:48 Heparin I.V. 5000 Yaw Lynn Bolus units William Washburn RN, MD 13:41:48 Heparin I.V. 2000 Yaw Lynn Bolus units William Washburn RN, MD Procedure Log Time Note 11:39:04 Stephanie Ulloa sent for patient. Start room use. 11:39:28 Time tracking: Regular hours (M-F 7:00 - 5:00) 11:39:33 Plan of Care:Hemodynamics will remain stable., Cardiac rhythm will remain stable., Comfort level will be maintained., Respiratory function will remain adequate., Patient/ family verbilizes understanding of procedure., Procedure tolerated without complication., Recovers from procedure without complications.. 11:39:37 Use device set IR Diagnostic 11:39:38 ACIST Manifold (43006) opened to sterile field. 11:39:38 ACIST Hand Control (70995) opened to sterile field. 11:39:38 ACIST Syringe (32165) opened to sterile field. 11:39:39 Tegaderm 4 x 4 (1626W) opened to sterile field. 11:39:39 Sterile Angiographic Pack opened to sterile field. 11:39:39 Bag Decanter (2002S) opened to sterile field. 11:39:48 Patient received from Outpatients to IR Alert and oriented. Tansferred to table in Supine position. 11:39:49 Correct patient and procedure confirmed by team. 11:39:51 Signed procedure consent form obtained from patient. 11:39:52 Full Disclosure recording started 11:39:52 ECG and BP/O2 sat monitors applied to patient. 11:39:53 - 11:39:56 H&P Date Dictated: 04/27/2018 Within 30 days and on chart.. 11:39:57 Pre-op teaching completed and patient verbalized understanding. 11:39:57 Pre-procedure instructions explained to patient. 11:39:58 Family in waiting room. 11:40:00 Patient NPO since Midnight. 11:40:05 - 11:40:29 SEE ANESTHESIA NOTE FOR PRE PROCEDURE ANESTHESIA 11:41:13 Left Arm area was prepped with chlora-prep and draped in sterile fashio n 11:41:20 Right AREA area was prepped with chlora-prep and draped in sterile fashion 12:00:16 Jone Veliz MD present and monitoring patient for TIVA. 12:03:07 Vital chart was started 12:03:07 Baseline sample Acquired. 12:03:19 Pre procedure: right dorsailis pedis pulse Doppler 12:03:22 Pre procedure: left dorsailis pedis pulse Doppler 12::25 Pre procedure: right posterior tibial pulse Doppler 12::27 Pre procedure: left posterior tibial pulse Doppler 12::24 Alarms reviewed by R. N. 12:: Sharps counted by scrub and verified by R.N. 12::48 --------ALL STOP TIME OUT------ 12::48 Physician arrived 12::50 Final Timeout: patient, procedure, and site verified with staff and physician. All members of the team are in agreement. 12::54 Left Arm site verified by team. 12:: Right PEDAL site verified by team. 12::23 Sedation plan: General Anesthesia Medication:General Anesthesia 12:29:00 Procedure started. 12:29:11 Local anesthetic to left brachial artery with Lidocaine 1% by Yaw Washburn MD.INITIAL ACCESS ONLY 12:30:53 SHEATH 5FR [place] (YBQ611) opened to sterile field. 12:30:53 Micropuncture VSI 4FR kit opened to sterile field. 12:30:54 TUBING Contrast Injection High Pressure (VCV367C) opened to sterile field. 12:30:55 DOC .035 wire (Q44245) opened to sterile field. 12:30:55 TUBING Contrast Injection High Pressure (GVL211Y) opened to sterile field. 12:30:59 Access obtained with 4Fr micropunture. 12:31:48 A 5 Fr sheath was inserted into the Left Brachial artery 12:34:46 ALAS 260 wire (C42394) opened to sterile field. 12:36:03 GLIDE CATHETER 5FR ANGLED 100cm (CG508) opened to sterile field. 12:37:22 GLIDE CATHETER 5FR ANGLED 65cm (CG507) opened to sterile field. 12:38:50 GLIDE WIRE ANGLE 260cm (MJ2329) opened to sterile field. 12:38:51 TORQUE DEVICE PLASTIC .038 ( TD01) opened to sterile field. 12:41:33 A Inhibitex ULTRA BOLUS FLUSH 5Fr 90CM catheter ([id number]) was advanced over the wire and used for . 12:49:41 Cook RAABE 6FR. 90cm guide sheath opened to sterile field. 12:49:49 Sheath upsized to a 6 Fr Long. 12:53:31 INFLATOR BasixTOUCH (KO8114) opened to sterile field. 12:53:48 Heparin Bolus 5000 units I.V. was administered by Lynn Thomas RN; ; 12:55:19 Trailblazer 0.035 135cm catheter (VTM138301) opened to sterile field. 12:56:44 ROADRUNNER .035 260 glide wire (N61927) opened to sterile field. 13:06:30 Navicross Support Straight .035 150cm catheter (UM99550) opened to sterile field. 13:13:10 CXI SUPPORT .035 135 CM STR catheter (Z88755) opened to sterile field. 13:19:41 Inflate balloon Inflation number: 1 A Evercross 3 x 4 x 135 Balloon ([id number]) was prepped and advanced across the Mid Superficial Femoral, Right, then inflated to 14 MALIK for 0:05 (min:sec). 13:24:27 Inflate balloon Inflation number: 2 A Evercross 3 x 8 x 135 Balloon ([id number]) was prepped and advanced across the Mid Superficial Femoral, Right, then inflated to 16 MALIK for 0:20 (min:sec). 13:30:00 CHOICE PT Extra Support J 300cm guide wire ([id number]) opened to steril e field. 13:41:48 Heparin Bolus 2000 units I.V. was administered by Lynn Thomas RN; ; 13:51:13 5 X 120 CHOCOLATE BALLOON INFLATED MULTIPLE TIMES 13:53:15 Inflate balloon Inflation number: 3 A Evercross 4 x 100 x 135 Balloon ([id number]) was prepped and advanced across the Mid Superficial Femoral, Right, then inflated to 13 MALIK for 0:07 (min:sec). 14:00:51 Inflate balloon Inflation number: 4 A [place] Plus 4 x 8 x 130 Balloon ([id number]) was prepped and advanced across the Mid Superficial Femoral, Right, then inflated to 14 MALIK for 0:45 (min:sec). 14:12:40 Inflate balloon Inflation number: 5 A IN.PACT Admiral 6 x 150 x 130 DCB balloon ([id number]) was prepped and advanced across the Mid Superficial Femoral, Right, then inflated to 8 MALIK for 2:58 (min:sec). 14:20:24 Inflate balloon Inflation number: 6 A IN.PACT Admiral 5 x 150 x 130 DCB balloon ([id number]) was prepped and advanced across the Mid Superficial Femoral, Right, then inflated to 8 MALIK for 3:00 (min:sec). 14:29:30 Inflate balloon Inflation number: 7 A IN.PACT Admiral 5 x 80 x 130 DCB Balloon ([id number]) was prepped and advanced across the Mid Superficial Femoral, Right, then inflated to 8 MALIK for 3:03 (min:sec). 14:38:13 Sheath removed intact; hemostasis achieved with Manual Compression to the Left Brachial artery. 14:38:35 Fluoroscopy time 20.10 minutes. 14:38:42 Fluoroscopy dose: 554 mGy 14:38:42 Flurop Dose total: 554 14:56:29 Procedure ended.(Physican Out) 14:56:49 Contrast amount:Isovue 300 106ml. 14:56:51 Sharps counted by scrub and verified by R.N. 14:56:52 Insertion/operative site no bleeding no hematoma. 14:57:08 Post-op/insertion site Left Brachial artery dressed using a 4 x 4 and Tegaderm. 14:57:17 Post left brachial artery:stable 14:57:21 Post procedure instruction explained to patient.Patient verbalizes understanding. 14:57:23 Procedure and supply charges have been captured, reviewed, submitted an d are correct. 15:00:02 SEE ANESTHESIA NOTE VOR POST PROCEDURE ANESTHESIA 15:05:13 Report given to Recovery Room. 15:05:16 Patient transfered to Recovery Room with Bed. 15:05:49 Vital chart was stopped 15:05:53 Full Disclosure recording stopped Intervention Summary Intervention Notes Time ActionType Lesion and Equipment Used Action# Pressure Duration Attributes 13:19:41 Inflate Mid Evercross 3 x 4 1 14 00:05 balloon Superficial x 135 Balloon Femoral, ([id number]) Right 13:24:27 Inflate Mid Evercross 3 x 8 2 16 00:20 balloon Superficial x 135 Balloon Femoral, ([id number]) Right 13:53:15 Inflate Mid Evercross 4 x 3 13 00:07 balloon Superficial 100 x 135 Femoral, Balloon Right ([id number]) 14:00:51 Inflate Mid [place] Plus 4 4 14 00:45 balloon Superficial x 8 x 130 Femoral, Balloon Right ([id number]) 14:12:40 Inflate Mid IN.PACT Admiral 5 8 02:58 balloon Superficial 6 x 150 x 130 Femoral, DCB balloon Right ([id number]) 14:20:24 Inflate Mid IN.PACT Admiral 6 8 03:00 balloon Superficial 5 x 150 x 130 Femoral, DCB balloon Right ([id number]) 14:29:30 Inflate Mid IN.PACT Admiral 7 8 03:03 balloon Superficial 5 x 80 x 130 Femoral, DCB Balloon Right ([id number]) Device Usage Item Name Manufacture Quantity Catalog Number Hospital Part Current Minimal Lot# / Charge Number Stock Stock Serial# Code ACIST Syringe Acist 1 09429 632149 739709 797929 20 (55700) Medical Systems Abroad101 ACIST Hand Acist 1 66325 649130 317475 060445 5 Control (77131) Medical Systems Abroad101 ACIST Manifold Acist 1 59335 520547 328594 954491 5 (93765) Medical Systems Inc Bag Decanter Microtek 1 2001S 737828 54248 819596 5 (2001S) Medical Inc. Sterile Cardinal 1 [id number] 281917 324830 5 Angiographic Health Pack Tegaderm 4 x 4 3M 1 1626W 856645 017309 016764 5 (1626W) Micropuncture VSI VASCULAR 1 7266V 042970 634046 5 VSI 4FR kit SOLUTIONS SHEATH 5FR Terumo 1 FUN293 749526 574868 444973 40 [place] (NCS123) TUBING Contrast Merit 2 DST252O 040701 725780 129068 5 Injection High Medical Pressure (GIG608M) DOC .035 wire Cook Medical 1 C21082 487113 297481 5 (J35045) ALAS 260 wire Cook Medical 1 N05540 098653 94712 919521 5 0676969 (P68981) GLIDE CATHETER Terumo 1 CG508 526275 38179 943987 4 5FR ANGLED 100cm (CG508) GLIDE CATHETER Terumo 1 CG507 402356 415015 5 5FR ANGLED 65cm (CG507) GLIDE WIRE Terumo 1 SI7408 883367 950987 861081 5 ANGLE 260cm (JK0146) TORQUE DEVICE [place] 1 TD01 708459 897824 696010 5 PLASTIC .038 ( Scientific TD01) Merit ULTRA Merit 1 3407886TPT-HJ 018358 707770 5 BOLUS FLUSH 5Fr Medical 90CM catheter ([id number]) Cook RAABE 6FR. Cook Medical 1 D56106 340878 704862 5 90cm guide sheath INFLATOR Merit 1 XT6054 525187 629624 509296 5 BasixTOSI2 - Sistema de Informação do Investidor Medical (EZ8302) Trailblazer Medtronic 1 ASC-035-135 442127 71262 137155 5 0.035 135cm catheter ([id number]) ROADRUNNER .035 Cook Medical 1 W90678 215464 089973 932426 5 6823838 260 glide wire (F56277) Navicross Terumo 1 MA97664 720350 306707 962787 5 Support Straight .035 150cm catheter (VO33873) CXI SUPPORT Cook Medical 1 H82166 422186 538192 322479 5 0214891 .035 135 CM STR catheter (R91813) Evercross 3 x 4 Medtronic 1 [id number] 866546 079754 197078 5 L299531 x 135 Balloon ([id number]) Evercross 3 x 8 Medtronic 1 [id number] 147755 486260 079919 5 K860539 x 135 Balloon ([id number]) CHOICE PT Extra [place] 1 [id number] 681373 756803 755015 5 [id number] Support J 300cm Scientific guide wire (6988140T2) Evercross 4 x Medtronic 1 [id number] 993326 734636 754365 5 S608516 100 x 135 Balloon ([id number]) [place] Plus 4 Medtronic 1 [id number] 653997 902332 763408 5 x 8 x 130 Balloon ([id number]) IN.PACT Admiral Medtronic 1 [id number] 540820 1613062 885621 5 [id number] 6 x 150 x 130 DCB balloon ([id number]) IN.PACT Admiral Medtronic 1 [id number] 580978 7339424 386082 5 [id number] 5 x 150 x 130 DCB balloon ([id number]) IN.PACT Admiral Medtronic 1 [id number] 173159 120583 733615 5 [id number] 5 x 80 x 130 DCB Balloon ([id number]) Signature Audit [place] Stage Time Signature Unsigned Intra-Procedure 04/27/2018 Alexey Alejandroield RT 3:05:46 PM Shuffield RT (R) (CV) 04/27/2018 (R) (CV) 3:11:37 PM Intra-Procedure 04/27/2018 Alexey 3:13:11 PM Shuffield RT (R) (CV) Signatures Monitor : Alexey Signature : Flaviaield RT Date : Time : [address] [place] [address]
[~2018-04-27 09:21] MED LIST changes: +ALBUTEROL2.5 MG/3 M INH; +ALDACTONE100 MG PO; +CATAPRES0.1 MG PO; +CHLORTHALIDONE25 MG PO; +CLEOCIN HCL300 MG PO; +FLORAJEN3 CAPS460 MG PO; +FLUTICASONE PRO16 GM NASAL; +HYDROCODONE-APA1 TAB PO; +SILVADENE20 GM TP; +ZOVIRAX400 MG PO
[2018-04-27 09:50] LABS: BASOPHILS 0.2 % (0-2); EOSINOPHILS 1.6 % (0-7); HEMATOCRIT 44.3 % (42.0-54.0); HEMOGLOBIN 15.6 g/dL (13.5-17.5); IMMATURE GRANULOCYTES 0.2 % (0-5); LYMPHOCYTES 26.4 % (15-50); MCH 31.2 pg (26.0-34.0); MCHC 35.2 g/dL (31.0-37.0); MCV 88.6 fL (80.0-100.0); MEAN PLATELET VOLUME 9.8 fL (7.4-10.4); MONOCYTES 10.8 % (2-11); NEUTROPHILS 60.8 % (40-80); PLATELET COUNT 181 10x3/uL (130-400); RDW 13.6 % (11.5-14.5); WBC 9.5 10x3/uL (4.8-10.8)
[2018-04-27 09:58] LABS: ANION GAP 12.1 mmol/L (8-16); CALCIUM 8.8 mg/dL (8.5-10.1); CARBON DIOXIDE 25.8 mmol/L (21.0-32.0); CREATININE - SERUM 1.2 mg/dL (0.6-1.3); POTASSIUM - SERUM 3.9 mmol/L (3.5-5.1)
[2018-04-27 10:05] LABS: APTT 25.8 SECONDS (22.8-39.4); INR 1.05 (0.85-1.17); PROTIME 13.3 SECONDS (11.6-15.0)
[2018-04-27 10:52] VITALS: Ht 172.7 cm; Wt 90.9 kg
== END 2018-04-27 18:30 | disposition home or self-care (01) ==
LOC: D.SP 09:21 → D.RAD 12:00 → D.SP 12:00
PROVIDERS: General Practice
DX: I70.291 Other atherosclerosis of native arteries of extremities, right leg (principal); I70.92 Chronic total occlusion of artery of the extremities; Z01.812 Encounter for preprocedural laboratory examination

== ENCOUNTER → 2018-05-28 08:11 | Outpatient (CLI) | payer MEDICARE ==
[2018-04-27 10:52] VITALS: BMI 30.4
[~2018-05-28 08:11] MED LIST changes: +ASPIRIN81 MG PO; +BACTRIM DS1 TAB PO; +LASIX20 MG PO; +Nicoderm [PBKC] TRANSDERM; +PREDNISONE20 MG PO
== END | disposition home or self-care (01) ==
LOC: D.CT 08:11
DX: I73.9 Peripheral vascular disease, unspecified (principal)

== ENCOUNTER 2018-06-02 21:31 | Inpatient (IN) | payer MEDICARE ==
[~2018-06-02] VITALS: Ht 172.7 cm; Wt 90.7 kg
--- NOTE | ~2018-06-02 | MORECARE ---
CASE MANAGEMENT DISCHARGE SUMMARY PATIENT: CISCO MCNEAL UNIT: [id number] ADM DATE: 06/02/18 AGE: 68 : 50 SEX: M ROOM/BED: D.2213 AUTHOR: APRIL BELCHER PHYSICIAN: REFERRING PHYSICIAN: HUNTER ORLNADO MD DATE OF SERVICE: 06/08/18 Discharge Plan Patient Name: CISCO MCNEAL Facility: [facility]:[place] : 1950 Planned Disposition: Home Anticipated Discharge Date: Discharge Date: Expected LOS: Initial Reviewer: [email or web address] Initial Review Date: 06/03/2018 Generated: 06/08/18 1:41 pm DCP- Discharge Planning Updated by [email or web address]: Rafaela Suarez on 06/03/18 12:[address] Patient Name: CISCO MCNEAL Admission Status: ER Accout number: [id number] Admission Date: 06-02-2018 : 1950 Admission Diagnosis: Attending: HUNTER ORLANDO Current LOS: 1 Anticipated DC Date: Planned Disposition: Home Primary Insurance: [employer] Discharge Planning Comments: CM met with patient to assess discharge planning needs. Patient stated that he lives in [facility] with his and niece & nephew & plans to return there at discharge. He does have home health and did not think he will need any at discharge. He has a nebulizer at home and we will need to check if he will need it at discharge. His will be the one to drive her home. CM will continue to follow and assist with dc planning Space Control Supervisor: Rafaela Suarez DCPIA - Discharge Planning Initial Assessment Updated by [email or web address]: Rafaela Suarez on 06/03/18 1:24 pm * Is the patient Alert and Oriented? Yes * How many steps to enter\exit or inside your home? * PCP [facility] * [facility]acy [facility] * Preadmission Environment Home with Family * ADLs Independent * Equipment Nebulizer * List name and contact numbers for known caregivers / representatives who currently or will assist patient after discharge: LORRAINE [phone] * Verbal permission to speak to the caregivers and representatives has been obtained from the patient. N/A * Community resources currently utilized None * Additional services required to return to the preadmission environment? Yes * Can the patient safely return to the preadmission environment? Yes * Has this patient been hospitalized within the prior 30 days at any hospital? No Last DP export: 06/03/18 12:33 Patient Name: CISCO MCNEAL Page 08422 at 1241 All edits/amendments must be made on the electronic document DICTATION DATE: 06/08/18 124 AMBULATORY SERVICES REPRESENTATIVE: PACHECO 06/08/18 1241 RPT#: [id number] DC DATE: STATUS: ADM IN [facility] [address] [place] [address] END OF REPORT
--- NOTE | ~2018-06-02 | MORECARE ---
CASE MANAGEMENT DISCHARGE SUMMARY PATIENT: CISCO MCNEAL UNIT: [id number] ADM DATE: 06/02/18 AGE: 68 : 50 SEX: M ROOM/BED: D.2213 AUTHOR: APRIL BELCHER PHYSICIAN: REFERRING PHYSICIAN: HUNTER ORLANDO MD DATE OF SERVICE: 06/09/18 Discharge Plan Patient Name: CISCO MCNEAL Facility: [facility]:[place] : 1950 Planned Disposition: Home Anticipated Discharge Date: Discharge Date: 06/08/2018 Expected LOS: 0 Initial Reviewer: [email or web address] Initial Review Date: 06/03/2018 Generated: 06/09/18 10:09 am Comments DCP- Discharge Planning Updated by [email or web address]: Rafaela Suarez on 06/08/18 2:[address] Patient will be discharging home today denies any needs. CM will continue to follow and assist with dc planning DCP- Discharge Planning Updated by [email or web address]: Rafaela Suarez on 06/08/18 11:[address] IMM SERVED AND EXPLAINED DCP- Discharge Planning Updated by [email or web address]: Rafaela Suarez on 06/03/18 12:[address] Patient Name: CISCO MCNEAL Admission Status: ER Accout number: [id number] Admission Date: 06-02-2018 : 1950 Admission Diagnosis: Attending: HUNTER ORLANDO Current LOS: 1 Anticipated DC Date: Planned Disposition: Home Primary Insurance: [employer] Discharge Planning Comments: CM met with patient to assess discharge planning needs. Patient stated that he lives in [facility] with his and niece & nephew & plans to return there at discharge. He does have home health and did not think he will need any at discharge. He has a nebulizer at home and we will need to check if he will need it at discharge. His will be the one to drive her home. CM will continue to follow and assist with dc planning Bonsai Tender: Rafaela Suarez DCPIA - Discharge Planning Initial Assessment Updated by [email or web address]: Rafaela Suarez on 06/03/18 1:24 pm * Is the patient Alert and Oriented? Yes * How many steps to enter\exit or inside your home? * PCP T[facility] * Pharmacy [facility] * Preadmission Environment Home with Family * ADLs Independent * Equipment Nebulizer * List name and contact numbers for known caregivers / representatives who currently or will assist patient after discharge: LORRAINE [phone] * Verbal permission to speak to the caregivers and representatives has been obtained from the patient. N/A * Community resources currently utilized None * Additional services required to return to the preadmission environment? Yes * Can the patient safely return to the preadmission environment? Yes * Has this patient been hospitalized within the prior 30 days at any hospital? No Coverage Notice Reviewer: [email or web address] Sole Suarez Notice Issued Date-Time: 06/08/2018 12:40 Notice Type: IM Discharge Notice Notice Delivered To: Patient Relationship to Patient: Punch Press Operator Helper Name: Delivery Method: HAND - Hand Delivered Melanie Days: Prior Verbal Notification: Recipient Understood Notice: Yes Recipient Signature: Yes Med Rec Note Co-signed by Attending: Coverage Notice Comment: Last DP export: 06/08/18 2:21 Patient Name: CISCO MCNEAL Page 98627 at 0909 All edits/amendments must be made on the electronic document DICTATION DATE: 06/09/18908 EXHIBITS COORDINATOR: PACHECO 06/09/18908 RPT#: [id number] DC DATE:06/08/18 STATUS: DIS IN [facility] [address] [place] [address] END OF REPORT
--- NOTE | ~2018-06-02 | MORECARE ---
CASE MANAGEMENT DISCHARGE SUMMARY PATIENT: CISCO MCNEAL UNIT: [id number] ADM DATE: 06/02/18 AGE: 68 : 50 SEX: M ROOM/BED: D.2213 AUTHOR: APRIL BELCHER PHYSICIAN: REFERRING PHYSICIAN: HUNTER ORLANDO MD DATE OF SERVICE: 06/08/18 Discharge Plan Patient Name: CISCO MCNEAL Facility: [facility]:[place] : 1950 Planned Disposition: Home Anticipated Discharge Date: Discharge Date: Expected LOS: Initial Reviewer: [email or web address] Initial Review Date: 06/03/2018 Generated: 06/08/18 1:50 pm Comments DCP- Discharge Planning Updated by [email or web address]: Rafaela Suarez on 06/08/18 11:[address] IMM SERVED AND EXPLAINED DCP- Discharge Planning Updated by [email or web address]: Rafaela Suarez on 06/03/18 12:[address] Patient Name: CISCO MCNEAL Admission Status: ER Accout number: [id number] Admission Date: 06-02-2018 : 1950 Admission Diagnosis: Attending: HUNTER ORLANDO Current LOS: 1 Anticipated DC Date: Planned Disposition: Home Primary Insurance: [employer] Discharge Planning Comments: CM met with patient to assess discharge planning needs. Patient stated that he lives in [facility] with his and niece & nephew & plans to return there at discharge. He does have home health and did not think he will need any at discharge. He has a nebulizer at home and we will need to check if he will need it at discharge. His will be the one to drive her home. CM will continue to follow and assist with dc planning Scheduling Analyst: Rafaela Suarez DCPIA - Discharge Planning Initial Assessment Updated by [email or web address]: Rafaela Suarez on 06/03/18 1:24 pm * Is the patient Alert and Oriented? Yes * How many steps to enter\exit or inside your home? * PCP TITA * Pharmacy [facility] * Preadmission Environment Home with Family * ADLs Independent * Equipment Nebulizer * List name and contact numbers for known caregivers / representatives who currently or will assist patient after discharge: LORRAINE [phone] * Verbal permission to speak to the caregivers and representatives has been obtained from the patient. N/A * Community resources currently utilized None * Additional services required to return to the preadmission environment? Yes * Can the patient safely return to the preadmission environment? Yes * Has this patient been hospitalized within the prior 30 days at any hospital? No Coverage Notice Reviewer: [email or web address] Sole Suarez Notice Issued Date-Time: 06/08/2018 12:40 Notice Type: IM Discharge Notice Notice Delivered To: Patient Relationship to Patient: Radioactive Waste Disposal Dispatcher Name: Delivery Method: HAND - Hand Delivered Melanie Days: Prior Verbal Notification: Recipient Understood Notice: Yes Recipient Signature: Yes Med Rec Note Co-signed by Attending: Coverage Notice Comment: Last DP export: 06/08/18 11:41 Patient Name: CISCO MCNEAL Page [phone] at 1250 All edits/amendments must be made on the electronic document DICTATION DATE: 06/08/189 DRUG REGULATORY AFFAIRS SPECIALIST: PACHECO 06/08/18 1249 RPT#: [id number] DC DATE: STATUS: ADM IN [facility] [address] [place] [address] END OF REPORT
--- NOTE | ~2018-06-02 | MORECARE ---
CASE MANAGEMENT DISCHARGE SUMMARY PATIENT: CISCO MCNEAL UNIT: [id number] ADM DATE: 06/02/18 AGE: 68 : 50 SEX: M ROOM/BED: D.2213 AUTHOR: APRIL BELCHER PHYSICIAN: REFERRING PHYSICIAN: HUNTER ORLANDO MD DATE OF SERVICE: 06/08/18 Discharge Plan Patient Name: CISCO MCNEAL Facility: [facility]:[place] : 1950 Planned Disposition: Home Anticipated Discharge Date: Discharge Date: Expected LOS: Initial Reviewer: [email or web address] Initial Review Date: 06/03/2018 Generated: 06/08/18 4:21 pm Comments DCP- Discharge Planning Updated by [email or web address]: Rafaela Suarez on 06/08/18 2:[address] Patient will be discharging home today denies any needs. CM will continue to follow and assist with dc planning DCP- Discharge Planning Updated by [email or web address]: Rafaela Suarez on 06/08/18 11:[address] IMM SERVED AND EXPLAINED DCP- Discharge Planning Updated by [email or web address]: Rafaela Suarez on 06/03/18 12:[address] Patient Name: CISCO MCNEAL Admission Status: ER Accout number: [id number] Admission Date: 06-02-2018 : 1950 Admission Diagnosis: Attending: HUNTER ORLANDO Current LOS: 1 Anticipated DC Date: Planned Disposition: Home Primary Insurance: [employer] Discharge Planning Comments: CM met with patient to assess discharge planning needs. Patient stated that he lives in [facility] with his and niece & nephew & plans to return there at discharge. He does have home health and did not think he will need any at discharge. He has a nebulizer at home and we will need to check if he will need it at discharge. His will be the one to drive her home. CM will continue to follow and assist with dc planning Assembler Camper: Rafaela Suarez DCPIA - Discharge Planning Initial Assessment Updated by [email or web address]: Rafaela Suarez on 06/03/18 1:24 pm * Is the patient Alert and Oriented? Yes * How many steps to enter\exit or inside your home? * PCP TITA * Pharmacy [facility] * Preadmission Environment Home with Family * ADLs Independent * Equipment Nebulizer * List name and contact numbers for known caregivers / representatives who currently or will assist patient after discharge: LORRAINE [phone] * Verbal permission to speak to the caregivers and representatives has been obtained from the patient. N/A * Community resources currently utilized None * Additional services required to return to the preadmission environment? Yes * Can the patient safely return to the preadmission environment? Yes * Has this patient been hospitalized within the prior 30 days at any hospital? No Coverage Notice Reviewer: [email or web address] Sole Suarez Notice Issued Date-Time: 06/08/2018 12:40 Notice Type: IM Discharge Notice Notice Delivered To: Patient Relationship to Patient: Secondary Education Professor Name: Delivery Method: HAND - Hand Delivered Melanie Days: Prior Verbal Notification: Recipient Understood Notice: Yes Recipient Signature: Yes Med Rec Note Co-signed by Attending: Coverage Notice Comment: Last DP export: 06/08/18 11:50 Patient Name: CISCO MCNEAL Page 51471 at 1521 All edits/amendments must be made on the electronic document DICTATION DATE: 06/08/18 152 PROGRAM DIRECTOR: PACHECO 06/08/18 1520 RPT#: [id number] DC DATE: STATUS: ADM IN [facility] [address] [place] [address] END OF REPORT
--- NOTE | ~2018-06-02 | MORECARE ---
CASE MANAGEMENT DISCHARGE SUMMARY PATIENT: CISCO MCNEAL UNIT: [id number] ADM DATE: 06/02/18 AGE: 68 : 50 SEX: M ROOM/BED: D.2204 AUTHOR: APRIL BELCHER PHYSICIAN: REFERRING PHYSICIAN: HUNTER ORLANDO MD DATE OF SERVICE: 06/03/18 Discharge Plan Patient Name: CISCO MCNEAL [facility] [facility] 1950 Planned Disposition: Home Anticipated Discharge Date: Discharge Date: Expected LOS: Initial Reviewer: [email or web address] Initial Review Date: 06/03/2018 Generated: 06/03/18 2:25 pm DCPIA - Discharge Planning Initial Assessment Updated by [email or web address]: Rafaela Suarez on 06/03/18 1:24 pm * Is the patient Alert and Oriented? Yes * How many steps to enter\exit or inside your home? * PCP TIAT * Pharmacy [facility] * Preadmission Environment Home with Family * ADLs Independent * Equipment Nebulizer * List name and contact numbers for known caregivers / representatives who currently or will assist patient after discharge: LORRAINE [phone] * Verbal permission to speak to the caregivers and representatives has been obtained from the patient. N/A * Community resources currently utilized None * Additional services required to return to the preadmission environment? Yes * Can the patient safely return to the preadmission environment? Yes * Has this patient been hospitalized within the prior 30 days at any hospital? No Patient Name: CISCO MCNEAL Page [phone] at 1325 All edits/amendments must be made on the electronic document DICTATION DATE: 06/03/18 1325 COMMUNICATIONS PROJECT LEAD: PACHECO 06/03/18 1325 RPT#: [id number] DC DATE: STATUS: ADM IN [facility] [address] [place] [address] END OF REPORT
--- NOTE | ~2018-06-02 | MORECARE ---
CASE MANAGEMENT DISCHARGE SUMMARY PATIENT: CISCO MCNEAL UNIT: [id number] ADM DATE: 06/02/18 AGE: 68 : 50 SEX: M ROOM/BED: D.2204 AUTHOR: APRIL BELCHER PHYSICIAN: REFERRING PHYSICIAN: HUNTER ORLANDO MD DATE OF SERVICE: 06/03/18 Discharge Plan Patient Name: CISCO MCNEAL Facility: [facility]:[place] : 1950 Planned Disposition: Home Anticipated Discharge Date: Discharge Date: Expected LOS: Initial Reviewer: [email or web address] Initial Review Date: 06/03/2018 Generated: 06/03/18 2:33 pm Comments DCP- Discharge Planning Updated by [email or web address]: Rafaela Suarez on 06/03/18 12:[address] Patient Name: CISCO MCNEAL Admission Status: ER Accout number: [id number] Admission Date: 06-02-2018 : 1950 Admission Diagnosis: Attending: HUNTER ORLANDO Current LOS: 1 Anticipated DC Date: Planned Disposition: Home Primary Insurance: [employer] Discharge Planning Comments: CM met with patient to assess discharge planning needs. Patient stated that he lives in [facility] with his and niece & nephew & plans to return there at discharge. He does have home health and did not think he will need any at discharge. He has a nebulizer at home and we will need to check if he will need it at discharge. His will be the one to drive her home. CM will continue to follow and assist with dc planning Group Therapy Counselor: Rafaela Suarez DCPIA - Discharge Planning Initial Assessment Updated by [email or web address]: Rafaela Suarez on 06/03/18 1:24 pm * Is the patient Alert and Oriented? Yes * How many steps to enter\exit or inside your home? * PCP TITA * Pharmacy [facility] * Preadmission Environment Home with Family * ADLs Independent * Equipment Nebulizer * List name and contact numbers for known caregivers / representatives who currently or will assist patient after discharge: LORRAINE [phone] * Verbal permission to speak to the caregivers and representatives has been obtained from the patient. N/A * Community resources currently utilized None * Additional services required to return to the preadmission environment? Yes * Can the patient safely return to the preadmission environment? Yes * Has this patient been hospitalized within the prior 30 days at any hospital? No Last DP export: 06/03/18 12:25 Patient Name: CISCO MCNEAL Page 00779 at 1333 All edits/amendments must be made on the electronic document DICTATION DATE: 06/03/181332 TRACK REPAIRER: PACHECO 06/03/181332 RPT#: [id number] DC DATE: STATUS: ADM IN [facility] [address] [place] [address] END OF REPORT
[~2018-06-02 21:31] MED LIST changes: -ASPIRIN81 MG PO; -LASIX20 MG PO; -Nicoderm [PBKC] TRANSDERM; -PREDNISONE20 MG PO
[2018-06-02 22:11] LABS: BASOPHILS 0.2 % (0-2); EOSINOPHILS 2.9 % (0-7); HEMATOCRIT 44.9 % (42.0-54.0); HEMOGLOBIN 15.6 g/dL (13.5-17.5); IMMATURE GRANULOCYTES 0.4 % (0-5); LYMPHOCYTES 27.1 % (15-50); MCH 30.8 pg (26.0-34.0); MCHC 34.7 g/dL (31.0-37.0); MCV 88.7 fL (80.0-100.0); MEAN PLATELET VOLUME 9.7 fL (7.4-10.4); MONOCYTES 10.7 % (2-11); NEUTROPHILS 58.7 % (40-80); PLATELET COUNT 188 10x3/uL (130-400); RBC 5.06 10x6/uL (4.20-6.10); RDW 13.9 % (11.5-14.5); WBC 9.9 10x3/uL (4.8-10.8)
[2018-06-02 22:30] LABS: ALBUMIN 3.4 g/dL (3.4-5.0); ALKALINE PHOSPHATASE 60 U/L (46-116); ALT (SGPT) 33 U/L (10-68); BILIRUBIN - TOTAL 0.29 mg/dL (0.2-1.3); CALC OSMOLALITY 274 mosm/kg (275-300); CARBON DIOXIDE 26.6 mmol/L (21.0-32.0); CHLORIDE - SERUM 100 mmol/L (98-107); CREATININE - SERUM 1.3 mg/dL (0.6-1.3); GLUCOSE 123 mg/dL (74-106); POTASSIUM - SERUM 4.3 mmol/L (3.5-5.1); PROTEIN - SERUM 7.5 g/dL (6.4-8.2); SODIUM 137 mmol/L (136-145); UREA NITROGEN 13 mg/dL (7-18); eGFR NON AFRICAN AMERICAN 58 mL/min (90-120)
[2018-06-02 22:31] VITALS: BP 137/64
[2018-06-02 22:39] LABS: APTT 27.3 SECONDS (22.8-39.4); INR 1.04 (0.85-1.17); PROTIME 13.3 SECONDS (11.6-15.0)
[2018-06-02 22:40] LABS: D-DIMER-QUANTITATIVE 1.01 ug/mLFEU (0.20-0.54)
[2018-06-02 22:59] LABS: CKMB 2.5 U/L (0.0-3.6); CREATINE KINASE 198 UL (21-232); TROPONIN-I 0.057 ng/mL (0.000-0.060)
[2018-06-03] VITALS (8 sets, daily range): BP systolic 142–184; BP diastolic 69–91; BMI 30.4
[2018-06-03 05:43] LABS: BASOPHILS 0 % (0-2); EOSINOPHILS 0.2 % (0-7); HEMATOCRIT 44.4 % (42.0-54.0); HEMOGLOBIN 15.6 g/dL (13.5-17.5); IMMATURE GRANULOCYTES 0.2 % (0-5); LYMPHOCYTES 13.3 % (15-50); MCH 30.7 pg (26.0-34.0); MCHC 35.1 g/dL (31.0-37.0); MCV 87.4 fL (80.0-100.0); MEAN PLATELET VOLUME 9.5 fL (7.4-10.4); MONOCYTES 2.5 % (2-11); NEUTROPHILS 83.8 % (40-80); PLATELET COUNT 180 10x3/uL (130-400); RBC 5.08 10x6/uL (4.20-6.10); RDW 13.8 % (11.5-14.5); WBC 8.3 10x3/uL (4.8-10.8)
[2018-06-03 06:46] LABS: ALBUMIN 3.3 g/dL (3.4-5.0); ANION GAP 15.6 mmol/L (8-16); BILIRUBIN - TOTAL 0.36 mg/dL (0.2-1.3); CALCIUM 8.9 mg/dL (8.5-10.1); CREATININE - SERUM 1.3 mg/dL (0.6-1.3); POTASSIUM - SERUM 4.6 mmol/L (3.5-5.1); PROTEIN - SERUM 7.5 g/dL (6.4-8.2); TROPONIN-I 0.037 ng/mL (0.000-0.060)
[2018-06-03] MEDS ORDERED: ASPIRIN81 MG PO (07:32)
[2018-06-03 12:14] LABS: CKMB 7.2 U/L (0.0-3.6); CREATINE KINASE 255 UL (21-232); TROPONIN-I 0.025 ng/mL (0.000-0.060)
[2018-06-03 16:11] LABS: CREATINE KINASE 238 UL (21-232); TROPONIN-I 0.022 ng/mL (0.000-0.060)
[2018-06-03 16:52] LABS: CKMB 6.9 U/L (0.0-3.6)
[2018-06-04 04:09] LABS: BASOPHILS 0 % (0-2); EOSINOPHILS 0.1 % (0-7); HEMATOCRIT 41.7 % (42.0-54.0); HEMOGLOBIN 14.3 g/dL (13.5-17.5); IMMATURE GRANULOCYTES 0.4 % (0-5); LYMPHOCYTES 9.6 % (15-50); MCH 29.9 pg (26.0-34.0); MCHC 34.3 g/dL (31.0-37.0); MCV 87.2 fL (80.0-100.0); MEAN PLATELET VOLUME 9.5 fL (7.4-10.4); NEUTROPHILS 82.9 % (40-80); PLATELET COUNT 198 10x3/uL (130-400); RBC 4.78 10x6/uL (4.20-6.10); RDW 13.6 % (11.5-14.5)
[2018-06-04 04:40] LABS: ALBUMIN 3.2 g/dL (3.4-5.0); ANION GAP 12.7 mmol/L (8-16); BILIRUBIN - TOTAL 0.24 mg/dL (0.2-1.3); CARBON DIOXIDE 25.5 mmol/L (21.0-32.0); CREATININE - SERUM 1.2 mg/dL (0.6-1.3); POTASSIUM - SERUM 4.2 mmol/L (3.5-5.1); PROTEIN - SERUM 6.8 g/dL (6.4-8.2)
[2018-06-04 06:37] VITALS: BP 169/66
[2018-06-04 09:12] VITALS: BP 170/79
[2018-06-04 11:08] VITALS: Ht 172.7 cm; Wt 90.7 kg
[2018-06-04 12:00] VITALS: BP 134/62
[2018-06-04 16:33] VITALS: BP 181/71
[2018-06-04 22:08] VITALS: BP 191/77
[2018-06-05 06:10] LABS: BASOPHILS 0.1 % (0-2); EOSINOPHILS 0 % (0-7); HEMATOCRIT 41.9 % (42.0-54.0); HEMOGLOBIN 14.2 g/dL (13.5-17.5); IMMATURE GRANULOCYTES 0.5 % (0-5); LYMPHOCYTES 8.6 % (15-50); MCHC 33.9 g/dL (31.0-37.0); MCV 88.6 fL (80.0-100.0); MEAN PLATELET VOLUME 10.1 fL (7.4-10.4); MONOCYTES 6.8 % (2-11); PLATELET COUNT 215 10x3/uL (130-400); RBC 4.73 10x6/uL (4.20-6.10); RDW 13.8 % (11.5-14.5); WBC 16.5 10x3/uL (4.8-10.8)
[2018-06-05 06:11] VITALS: BP 165/82
[2018-06-05 06:29] LABS: ALBUMIN 2.9 g/dL (3.4-5.0); ANION GAP 11.3 mmol/L (8-16); BILIRUBIN - TOTAL 0.18 mg/dL (0.2-1.3); CALCIUM 8.4 mg/dL (8.5-10.1); CARBON DIOXIDE 26.7 mmol/L (21.0-32.0); CREATININE - SERUM 1.3 mg/dL (0.6-1.3); PROTEIN - SERUM 6.6 g/dL (6.4-8.2)
[2018-06-05 10:04] VITALS: BP 187/84
[2018-06-05 16:22] VITALS: BP 165/49
[2018-06-06 05:09] LABS: BASOPHILS 0.1 % (0-2); EOSINOPHILS 0 % (0-7); HEMOGLOBIN 15.1 g/dL (13.5-17.5); IMMATURE GRANULOCYTES 0.9 % (0-5); LYMPHOCYTES 9.3 % (15-50); MCH 30.4 pg (26.0-34.0); MCHC 34.3 g/dL (31.0-37.0); MCV 88.5 fL (80.0-100.0); MEAN PLATELET VOLUME 9.7 fL (7.4-10.4); MONOCYTES 7.5 % (2-11); NEUTROPHILS 82.2 % (40-80); PLATELET COUNT 250 10x3/uL (130-400); RBC 4.97 10x6/uL (4.20-6.10); RDW 13.7 % (11.5-14.5); WBC 15.9 10x3/uL (4.8-10.8)
[2018-06-06 05:18] LABS: ALBUMIN 3.2 g/dL (3.4-5.0); ANION GAP 6.7 mmol/L (8-16); BILIRUBIN - TOTAL 0.26 mg/dL (0.2-1.3); CARBON DIOXIDE 31.5 mmol/L (21.0-32.0); CREATININE - SERUM 1.1 mg/dL (0.6-1.3); POTASSIUM - SERUM 4.2 mmol/L (3.5-5.1); PROTEIN - SERUM 6.8 g/dL (6.4-8.2)
[2018-06-06 05:48] VITALS: BP 150/55
[2018-06-06 08:23] VITALS: BP 185/73
[2018-06-06 12:16] VITALS: BP 163/81
[2018-06-06 16:40] VITALS: BP 173/74
[2018-06-06 20:00] VITALS: BP 124/67
[2018-06-07] VITALS: BP 160/62
[2018-06-07 05:00] VITALS: BP 119/54
[2018-06-07 05:10] LABS: BASOPHILS 0.1 % (0-2); EOSINOPHILS 0.1 % (0-7); HEMOGLOBIN 14.7 g/dL (13.5-17.5); IMMATURE GRANULOCYTES 1.4 % (0-5); LYMPHOCYTES 12.5 % (15-50); MCHC 34.2 g/dL (31.0-37.0); MCV 87.8 fL (80.0-100.0); MEAN PLATELET VOLUME 9.7 fL (7.4-10.4); MONOCYTES 10.4 % (2-11); NEUTROPHILS 75.5 % (40-80); PLATELET COUNT 240 10x3/uL (130-400); RDW 13.5 % (11.5-14.5); WBC 14.7 10x3/uL (4.8-10.8)
[2018-06-07 05:32] LABS: ALBUMIN 2.8 g/dL (3.4-5.0); ANION GAP 10.1 mmol/L (8-16); BILIRUBIN - TOTAL 0.27 mg/dL (0.2-1.3); CALCIUM 8.3 mg/dL (8.5-10.1); CARBON DIOXIDE 30.2 mmol/L (21.0-32.0); CREATININE - SERUM 1.1 mg/dL (0.6-1.3); POTASSIUM - SERUM 4.3 mmol/L (3.5-5.1); PROTEIN - SERUM 6.2 g/dL (6.4-8.2)
[2018-06-07 08:39] VITALS: BP 142/58
[2018-06-07 12:41] VITALS: BP 162/90
[2018-06-07 19:04] VITALS: BP 163/77
[2018-06-07 20:33] VITALS: BP 164/74
[2018-06-08 02:35] VITALS: BP 121/55
[2018-06-08 05:01] VITALS: BP 174/74
[2018-06-08 06:57] LABS: BASOPHILS 0.1 % (0-2); EOSINOPHILS 0.7 % (0-7); HEMATOCRIT 46.6 % (42.0-54.0); HEMOGLOBIN 15.9 g/dL (13.5-17.5); IMMATURE GRANULOCYTES 2.5 % (0-5); LYMPHOCYTES 25.4 % (15-50); MCH 30.2 pg (26.0-34.0); MCHC 34.1 g/dL (31.0-37.0); MCV 88.4 fL (80.0-100.0); MEAN PLATELET VOLUME 9.6 fL (7.4-10.4); MONOCYTES 10.2 % (2-11); NEUTROPHILS 61.1 % (40-80); PLATELET COUNT 267 10x3/uL (130-400); RBC 5.27 10x6/uL (4.20-6.10); RDW 13.7 % (11.5-14.5); WBC 16.3 10x3/uL (4.8-10.8)
[2018-06-08 06:59] LABS: ANION GAP 10.6 mmol/L (8-16); BILIRUBIN - TOTAL 0.26 mg/dL (0.2-1.3); CALCIUM 8.9 mg/dL (8.5-10.1); CARBON DIOXIDE 30.6 mmol/L (21.0-32.0); CREATININE - SERUM 1.2 mg/dL (0.6-1.3); POTASSIUM - SERUM 4.2 mmol/L (3.5-5.1); PROTEIN - SERUM 6.5 g/dL (6.4-8.2)
[2018-06-08 09:59] VITALS: BP 130/71
[2018-06-08] MEDS ORDERED: PREDNISONE20 MG PO (16:15)
[2018-06-08] MEDS ORDERED: LASIX20 MG PO (16:15)
[2018-06-08] MEDS ORDERED: Nicoderm [PBKC] TRANSDERM (16:18)
== END 2018-06-08 17:23 | disposition home or self-care (01) | DRG 191 ==
LOC: D.ER 21:31 → D.MS 23:27 → D.EDHOLD 23:27 → D.MS 06-03 09:27 → D.SDCHOLD 06-04 07:11 → D.MS 06-04 07:13
PROVIDERS: Emergency Medicine; Family Medicine
DX: J44.1 Chronic obstructive pulmonary disease with (acute) exacerbation (principal); F17.213 Nicotine dependence, cigarettes, with withdrawal; I10 Essential (primary) hypertension; R73.9 Hyperglycemia, unspecified

== ENCOUNTER 2018-07-14 09:52 | Outpatient (CLI) | payer MEDICARE ==
[2018-06-04 11:08] VITALS: BMI 30.4
[~2018-07-14 09:52] MED LIST changes: +ASPIRIN81 MG PO; +LASIX20 MG PO; +Nicoderm [PBKC] TRANSDERM; +PREDNISONE20 MG PO
[2018-07-14 10:17] LABS: BASOPHILS 0.2 % (0-2); EOSINOPHILS 2.1 % (0-7); HEMATOCRIT 42.7 % (42.0-54.0); HEMOGLOBIN 14.8 g/dL (13.5-17.5); IMMATURE GRANULOCYTES 0.2 % (0-5); LYMPHOCYTES 22.4 % (15-50); MCHC 34.7 g/dL (31.0-37.0); MCV 86.6 fL (80.0-100.0); MEAN PLATELET VOLUME 9.3 fL (7.4-10.4); MONOCYTES 9.5 % (2-11); NEUTROPHILS 65.6 % (40-80); RBC 4.93 10x6/uL (4.20-6.10); RDW 14.2 % (11.5-14.5); WBC 10.6 10x3/uL (4.8-10.8)
--- NOTE | 2018-07-14 10:20 | NUR ---
PT IN ROOM 2516 FOR AFRO PROCEDURE. PT RLATES HE HAS AN ALLERGY TO IODINE CONTRAST DYE AND RELATES HE ALMOST THE LAST TIME. Barrett ZELAYA RN CALLED AND INFORMED OF PT'S ALLERGY. PT ALSO RELATED HE IS ON ASA AND PLAVIX. Georgie ZELAYA NOTIFIED OF ROUTINE MEDICATIONS RELATED TO THINNING OF BLOOD. PT ALSO RELATES HE HAS BEEN DRINKING COFFEE THIS AM AND JUST A FEW MINUTES AGO THAT THE CUP IS RIGHT OVER THERE. TELLS NURSE NOT TO WORRY ABOUT IT BECAUSE THE DOCTOR SAID HE COULD SIP COFFEE BUT NOT JUST DRINK AND DRINK. NOTIFIED Georgie ZELAYA RN REGARDING NOT BEING NPO. WILDER, NURSE FOR INTERVENTIONAL RADIOLOGY AND Barrett ZELAYA RN SPECIALS NURSE CAME AND TALKED WITH PT. PT WAS ARGUMENTATIVE WITH THEM AND RELATED IF IT WASN'T DONE TODAY THEN HE WOULD NOT BE BACK. WILDER ATTEMPTED TO EXPLAIN THE IMPORTANCE OF HIM HAVING THIS PROCEDURE AND OFFERED TO RESCHEDULE AND PATIENT ABSOLUTELY REFUSED. ANESTHESIA CAME TO PT'S ROOM AND RELATED THE PROCEDURE WOULD NOT BE DONE TODAY THEREFORE PT RELATED HE WOULD NOT BE BACK HOWEVER WILDER AND Georgie ZELAYA ATTEMPTED TO EXPLAIN TO THE PT THE POSSIBILITY OF ASPIRATING WHEN SEDATED IF ANYTHING HAS BEEN INGESTED AND THE DOCTOR AND THE PERSON ADMINISTERING THE ANTHESIA IS LIABLE FOR WHAT HAPPENS TO HIM AT THAT POINT AND IT IS NOT SAFE AFTER INGESTING ANYTHING PAST A CERTAIN TIME. PT WOULD NOT ACCEPT THE EXPLANATION DRESSED AND LEFT. WILDER OFFERED AGAIN TO RESCHEDULE OR IF HE STARTED HAVING MORE PROBLEMS TO CALL THEIR OFFICE. PERSON RELATED HE WOULD NOT BE BACK HERE. AND HE RELATES NOTHING IS GOING TO HAPPEN
[2018-07-14 10:29] LABS: APTT 26.9 SECONDS (22.8-39.4); INR 1.01 (0.85-1.17); PROTIME 12.8 SECONDS (11.6-15.0)
[2018-07-14 10:29] LABS: ANION GAP 13.3 mmol/L (8-16); CALCIUM 9.2 mg/dL (8.5-10.1); CARBON DIOXIDE 27.4 mmol/L (21.0-32.0); CREATININE - SERUM 1.3 mg/dL (0.6-1.3); POTASSIUM - SERUM 3.7 mmol/L (3.5-5.1)
[2018-07-14 10:32] LABS: PLATELET COUNT 203 10x3/uL (130-400)
--- NOTE | 2018-07-14 15:28 | NUR ---
PATIENT WAS SIPPING ON COFFEE IN PREOP ROOM HE BROUGHT FROM HOME EVEN THOUGH HE WAS SUPPOSED TO BE NPO AND HE WAS AWARE OF THIS. PROCEDURE SCHEDULED FOR 1300 WITH GENERAL ANESTHESIA. DRINKING COFFEE AT 1245 WHEN NURSE WALKED INTO ROOM. PROCEDURE CANCELLED.
== END 2018-07-14 13:12 | disposition home or self-care (01) ==
LOC: D.SP 09:52 → D.RAD 13:00 → D.SP 13:00
PROVIDERS: General Practice
DX: I70.219 Atherosclerosis of native arteries of extremities with intermittent claudication, unspecified extremity (principal); Z01.810 Encounter for preprocedural cardiovascular examination; Z01.811 Encounter for preprocedural respiratory examination; Z01.812 Encounter for preprocedural laboratory examination; Z53.9 Procedure and treatment not carried out, unspecified reason

== ENCOUNTER 2018-12-12 20:56 | Inpatient (IN) | payer OTHER ==
[2018-12-12 23:04] LABS: BASOPHILS 0.2 % (0-2); EOSINOPHILS 2.7 % (0-7); HEMATOCRIT 45.2 % (42.0-54.0); HEMOGLOBIN 15.8 g/dL (13.5-17.5); IMMATURE GRANULOCYTES 0.4 % (0-5); LYMPHOCYTES 27.3 % (15-50); MCH 29.6 pg (26.0-34.0); MCV 84.6 fL (80.0-100.0); MEAN PLATELET VOLUME 9.5 fL (7.4-10.4); MONOCYTES 9.3 % (2-11); NEUTROPHILS 60.1 % (40-80); PLATELET COUNT 182 10x3/uL (130-400); RBC 5.34 10x6/uL (4.20-6.10); RDW 14.2 % (11.5-14.5); WBC 10.6 10x3/uL (4.8-10.8)
[2018-12-12 23:17] LABS: ALBUMIN 3.6 g/dL (3.4-5.0); ALKALINE PHOSPHATASE 50 U/L (46-116); ALT (SGPT) 17 U/L (10-68); BILIRUBIN - TOTAL 0.27 mg/dL (0.2-1.3); CALC OSMOLALITY 282 mosm/kg (275-300); CARBON DIOXIDE 24.4 mmol/L (21.0-32.0); CHLORIDE - SERUM 105 mmol/L (98-107); CREATININE - SERUM 1.2 mg/dL (0.6-1.3); GLUCOSE 121 mg/dL (74-106); PROTEIN - SERUM 7.2 g/dL (6.4-8.2); SODIUM 140 mmol/L (136-145); UREA NITROGEN 21 mg/dL (7-18); eGFR NON AFRICAN AMERICAN 64 mL/min (90-120)
[2018-12-12 23:29] LABS: C-REACTIVE PROTEIN 0.5 mg/dL (0.0-0.9); CKMB 3.8 U/L (0.0-3.6); CREATINE KINASE 80 UL (21-232)
--- NOTE | 2018-12-12 23:45 | NUR ---
PT RESTING ON BED, NO S/S OF ACUTE DISTRESS NOTED. PT SPOUSE AT BEDSIDE.
[2018-12-12 23:59] LABS: ERYTHROCYTE SEDIMENTATION RATE 28 mm/hr (0-20)
[2018-12-13] VITALS (7 sets, daily range): BP systolic 101–194; BP diastolic 58–91; BMI 30.4
--- NOTE | 2018-12-13 00:30 | NUR ---
PT UPDATED ON PLAN OF CARE. PT DENIES NEEDS AT THIS TIME.
--- NOTE | 2018-12-13 01:45 | NUR ---
PT PLACED IN GOWN. PT RESTING COMFORTABLY ON BED. PT DENIES NEEDS AT THIS TIME.
--- NOTE | 2018-12-13 02:40 | NUR ---
PATIENT ARRIVED ON UNIT AMBULATORY WITH HOSPITAL STAFF AT SIDE.
--- NOTE | 2018-12-13 03:41 | NUR ---
PATIENTS VANCOMYCIN COMPLETE. SALINE LOCKED LEFT AC PERIPHERAL IV.
[2018-12-13 07:18] LABS: BASOPHILS 0.2 % (0-2); EOSINOPHILS 2.9 % (0-7); HEMATOCRIT 42.4 % (42.0-54.0); HEMOGLOBIN 14.7 g/dL (13.5-17.5); IMMATURE GRANULOCYTES 0.2 % (0-5); LYMPHOCYTES 28.7 % (15-50); MCH 29.4 pg (26.0-34.0); MCHC 34.7 g/dL (31.0-37.0); MCV 84.8 fL (80.0-100.0); MEAN PLATELET VOLUME 9.9 fL (7.4-10.4); PLATELET COUNT 161 10x3/uL (130-400); RDW 14.3 % (11.5-14.5); WBC 9.3 10x3/uL (4.8-10.8)
[2018-12-13 07:45] LABS: ALBUMIN 3.2 g/dL (3.4-5.0); BILIRUBIN - TOTAL 0.52 mg/dL (0.2-1.3); CALCIUM 8.6 mg/dL (8.5-10.1); CARBON DIOXIDE 26.8 mmol/L (21.0-32.0); CREATININE - SERUM 1.1 mg/dL (0.6-1.3); POTASSIUM - SERUM 3.8 mmol/L (3.5-5.1); PROTEIN - SERUM 6.3 g/dL (6.4-8.2)
--- NOTE | 2018-12-13 09:10 | NUR ---
PT SITTING IN ROOM STATES HE NEEDS TO HAVE HIS INHALER AND BREATHING TREATMENTS. PT MED REC WAS JUST COMPLETED. PT STATED HE ONLY TAKES ALDACTONE, PAIN MEDICATION AND ANOTHER MED. PER PT DR RIVERS ONLY WANTS HIM TAKING THESE FEW UNTIL BLOOD PRESSURE UNDER CONTROL? CONTINUE WITH PLAN OF CARE.
--- NOTE | 2018-12-13 12:28 | NUR ---
I HAVE REVIEWED THIS PATIENT AND I CONCUR WITH THE SHIFT ASSESSMENT COMPLETED BY THE LICENSED PRACTICAL NURSE TODAY THIS SHIFT.
[2018-12-13 15:37] LABS: ERYTHROCYTE SEDIMENTATION RATE 5 mm/hr (0-20)
--- NOTE | 2018-12-13 19:35 | NUR ---
PATIENT RESTING IN BED AND DENIES NEEDS AT THIS TIME. BED IN LOWEST POSITION AND CALL LIGHT WITHIN REACH. ENCOURAGED THE PATIENT TO CALL IF HE HAS NEEDS. WILL CONTINUE TO MONITOR.
[2018-12-14] VITALS (7 sets, daily range): BP systolic 125–175; BP diastolic 55–109
[2018-12-14 07:02] LABS: BASOPHILS 0.2 % (0-2); EOSINOPHILS 2.9 % (0-7); HEMATOCRIT 43.9 % (42.0-54.0); HEMOGLOBIN 15.2 g/dL (13.5-17.5); IMMATURE GRANULOCYTES 0.4 % (0-5); LYMPHOCYTES 25.9 % (15-50); MCH 29.3 pg (26.0-34.0); MCHC 34.6 g/dL (31.0-37.0); MCV 84.7 fL (80.0-100.0); NEUTROPHILS 58.6 % (40-80); PLATELET COUNT 168 10x3/uL (130-400); RBC 5.18 10x6/uL (4.20-6.10); RDW 14.4 % (11.5-14.5); WBC 10.5 10x3/uL (4.8-10.8)
[2018-12-14 07:07] LABS: ANION GAP 14.8 mmol/L (8-16); CARBON DIOXIDE 23.2 mmol/L (21.0-32.0); CREATININE - SERUM 1.3 mg/dL (0.6-1.3)
--- NOTE | 2018-12-14 07:51 | NUR ---
AWAKE AND ALERT. ORIENTED X3. NO C/O AT THIS TIME. LUNGS HAVE EXPIRATORY WHEEZES THROUGHOUT, OCCASSIONAL DRY COUGH NOTED. SKIN IS INTACT WITHOUT REDNESS EXCEPT AREAS TO RIGHT HAND WHICH ARE BLISTER LIKE BUT NO FLUID PALPATED. REPORTED BEING TOUCHY. WILL MONITOR. SL TO LEFT UPPER ARM IS PATENT WITHOUT REDNESS AT INSERTION SITE. DENIES NEEDS. SITTING UP ON SIDE OF BED EATING BREAKFAST.
--- NOTE | 2018-12-14 08:46 | NUR ---
ATE ALL OF BREAKFAST. DENIES NEEDS.
--- NOTE | 2018-12-14 11:02 | MORECARE ---
CASE MANAGEMENT DISCHARGE SUMMARY PATIENT: CISCO MCNEAL UNIT: [id number] ADM DATE: 12/13/18 AGE: 68 : 50 SEX: M ROOM/BED: D.1212 AUTHOR: APRIL BELCHER PHYSICIAN: REFERRING PHYSICIAN: MARY GUTIERREZ MD DATE OF SERVICE: 12/14/18 Discharge Plan Patient Name: CISCO MCNEAL Facility: [facility]:[place] : 1950 Planned Disposition: Home Anticipated Discharge Date: Discharge Date: Expected LOS: Initial Reviewer: HAYDEN Initial Review Date: 12/14/2018 Generated: 12/14/18 12:02 pm Comments DCP- Discharge Planning Updated by [id number]: Vidya Gilliland on 12/14/18 9:[address] Patient Name: CISCO MCNEAL Admission Status: ER Accout number: [id number] Admission Date: 12-13-2018 : 1950 Admission Diagnosis: Attending: MARY GUTIERREZ Current LOS: 1 Anticipated DC Date: Planned Disposition: Home Primary Insurance: [employer] Discharge Planning Comments: CM met with patient to complete initial dc planning assessment. CM educated patient on the CM role and verbal consent given by patient to complete assessment. CM verified patient's address, phone number, and emergency contact phone numbers. Patient lives at home with spouse and reports he is independent in his care. At discharge patient plans to return home and feels this is a safe discharge. CM discussed availability of home health, rehab services, and medical equipment. Patient denied known discharge needs at this time. Patient reports his spouse will transport him home at time of discharge. CM will continue to follow and will assist as needed with dc plans/needs. Customer Pricing Manager: Vidya Gilliland DCPIA - Discharge Planning Initial Assessment Updated by [email or web address]: Vidya Gilliland on 12/14/18 10:56 am * Is the patient Alert and Oriented? Yes * How many steps to enter\exit or inside your home? * PCP TITA * Pharmacy [facility] * Preadmission Environment Home with Family * ADLs Independent * Equipment Nebulizer * Verbal permission to speak to the caregivers and representatives has been obtained from the patient. N/A * Community resources currently utilized None * Additional services required to return to the preadmission environment? No * Can the patient safely return to the preadmission environment? Yes * Has this patient been hospitalized within the prior 30 days at any hospital? No Patient Name: CISCO MCNEAL Page [phone] at 1102 All edits/amendments must be made on the electronic document DICTATION DATE: 12/14/181100 TRANSLATOR/INTERPRETER: PACHECO 12/14/181100 RPT#: [id number] DC DATE: STATUS: ADM IN [facility] [address] [place] [address] END OF REPORT
--- NOTE | 2018-12-14 13:05 | NUR ---
IV TO LEFT UPPER ARM LEAKING. D/C WITH CATHETER INTACT. RESITED TO LEFT UPPER ARM AFTER ONE ATTEMPT WITH 22G. TOLERATED WELL.
--- NOTE | 2018-12-14 16:50 | NUR ---
SUPPER SERVED IN ROOM. SITTING UP ON SIDE OF BED EATING.
--- NOTE | 2018-12-14 18:14 | NUR ---
LYING IN BED WATCHING TV. DENIES NEEDS. NO CHANGES NOTED.
[2018-12-15 04:00] VITALS: BP 133/89
[2018-12-15 06:43] LABS: BASOPHILS 0.2 % (0-2); HEMATOCRIT 41.5 % (42.0-54.0); HEMOGLOBIN 14.3 g/dL (13.5-17.5); IMMATURE GRANULOCYTES 0.3 % (0-5); LYMPHOCYTES 27.2 % (15-50); MCH 29.1 pg (26.0-34.0); MCHC 34.5 g/dL (31.0-37.0); MCV 84.3 fL (80.0-100.0); MONOCYTES 9.8 % (2-11); NEUTROPHILS 59.5 % (40-80); PLATELET COUNT 149 10x3/uL (130-400); RBC 4.92 10x6/uL (4.20-6.10); RDW 14.4 % (11.5-14.5); WBC 10.3 10x3/uL (4.8-10.8)
[2018-12-15 07:13] LABS: CALC OSMOLALITY 283 mosm/kg (275-300); CHLORIDE - SERUM 107 mmol/L (98-107); GLUCOSE 104 mg/dL (74-106); POTASSIUM - SERUM 3.9 mmol/L (3.5-5.1); SODIUM 141 mmol/L (136-145); UREA NITROGEN 21 mg/dL (7-18); eGFR NON AFRICAN AMERICAN 79 mL/min (90-120)
--- NOTE | 2018-12-15 07:45 | NUR ---
PT PASSESS BY NURSING STATION STATED " I WILL BE RIGHT BACK." AMBULATE WITH SLOW AND STEADY GAIT. DENIES ANY PAIN OR DISCOMFORT AT THIS TIME. CAN EXPRESS NEEDS AND WANTS. FEDS SELF WITH TRAY SETUP. ASSESSMENT COMPLETED. C/L IN REACH AT BEDSIDE.
[2018-12-15 12:00] VITALS: BP 175/69
--- NOTE | 2018-12-15 14:17 | NUR ---
I have reviewed this patient and I concur with the Shift Assessment completed by the Licensed Practical Nurse today this shift.
[2018-12-15 20:00] VITALS: BP 167/77
[2018-12-16] VITALS: BP 175/84
[2018-12-16 04:00] VITALS: BP 158/71
[2018-12-16 06:12] LABS: BASOPHILS 0.2 % (0-2); EOSINOPHILS 2.6 % (0-7); HEMATOCRIT 41.6 % (42.0-54.0); HEMOGLOBIN 14.4 g/dL (13.5-17.5); IMMATURE GRANULOCYTES 0.3 % (0-5); LYMPHOCYTES 25.6 % (15-50); MCH 29.4 pg (26.0-34.0); MCHC 34.6 g/dL (31.0-37.0); MCV 84.9 fL (80.0-100.0); MEAN PLATELET VOLUME 10.3 fL (7.4-10.4); MONOCYTES 9.4 % (2-11); NEUTROPHILS 61.9 % (40-80); PLATELET COUNT 152 10x3/uL (130-400); RDW 14.5 % (11.5-14.5); WBC 9.8 10x3/uL (4.8-10.8)
[2018-12-16 06:21] LABS: CALC OSMOLALITY 286 mosm/kg (275-300); CALCIUM 9.2 mg/dL (8.5-10.1); CARBON DIOXIDE 26.9 mmol/L (21.0-32.0); CHLORIDE - SERUM 105 mmol/L (98-107); POTASSIUM - SERUM 3.8 mmol/L (3.5-5.1); SODIUM 140 mmol/L (136-145); UREA NITROGEN 21 mg/dL (7-18); eGFR NON AFRICAN AMERICAN 79 mL/min (90-120)
[2018-12-16 06:24] LABS: GLUCOSE 181 mg/dL (74-106)
--- NOTE | 2018-12-16 07:20 | NUR ---
REC'D UP SITTING ON SIDE OF BED AWAKE AND ALERT. RESP EVEN UNLABORED WITH NO DISTRESS NOTED. CAN EXPRESS NEEDS AND WANTS WITH NO VOICED. ASSESSMENT COMPLETED. C/L IN REACH AT BEDSIDE.
--- NOTE | 2018-12-16 12:46 | MORECARE ---
CASE MANAGEMENT DISCHARGE SUMMARY PATIENT: CISCO MCNEAL UNIT: [id number] ADM DATE: 12/13/18 AGE: 68 : 50 SEX: M ROOM/BED: D.1212 AUTHOR: APRIL BELCHER PHYSICIAN: REFERRING PHYSICIAN: MARY GUTIERREZ MD DATE OF SERVICE: 12/16/18 Discharge Plan Patient Name: CISCO MCNEAL Facility: [facility]:[place] : 1950 Planned Disposition: Home Anticipated Discharge Date: Discharge Date: Expected LOS: Initial Reviewer: [email or web address] Initial Review Date: 12/14/2018 Generated: 12/16/18 1:46 pm Comments DCP- Discharge Planning Updated by [email or web address]: Nyasia Farias on 12/16/18 11:[address] CM met with patient d/c IMM explained and served 12/16/18 @ [facility]. Patient denies any discharge needs at this time. CM will continue to follow and assist as needed with discharge planning / needs. DCP- Discharge Planning Updated by [email or web address]: Vidya Gilliland on 12/14/18 9:[address] Patient Name: CISCO MCNEAL Admission Status: ER Accout number: [id number] Admission Date: 12-13-2018 : 1950 Admission Diagnosis: Attending: MARY GUTIERREZ Current LOS: 1 Anticipated DC Date: Planned Disposition: Home Primary Insurance[facility] Discharge Planning Comments: CM met with patient to complete initial dc planning assessment. CM educated patient on the CM role and verbal consent given by patient to complete assessment. CM verified patient's address, phone number, and emergency contact phone numbers. Patient lives at home with spouse and reports he is independent in his care. At discharge patient plans to return home and feels this is a safe discharge. CM discussed availability of home health, rehab services, and medical equipment. Patient denied known discharge needs at this time. Patient reports his spouse will transport him home at time of discharge. CM will continue to follow and will assist as needed with dc plans/needs. Linen Checker: Vidya Gilliland DCPIA - Discharge Planning Initial Assessment Updated by [email or web address]: Vidya Gilliland on 12/14/18 10:56 am * Is the patient Alert and Oriented? Yes * How many steps to enter\exit or inside your home? * PCP TITA * Pharmacy [facility] * Preadmission Environment Home with Family * ADLs Independent * Equipment Nebulizer * Verbal permission to speak to the caregivers and representatives has been obtained from the patient. N/A * Community resources currently utilized None * Additional services required to return to the preadmission environment? No * Can the patient safely return to the preadmission environment? Yes * Has this patient been hospitalized within the prior 30 days at any hospital? No Coverage Notice Reviewer: [id number] Sole Farias Notice Issued Date-Time: 12/16/2018 11:54 Notice Type: IM Discharge Notice Notice Delivered To: Patient Relationship to Patient: Self Sausage Cutter Name: Delivery Method: HAND - Hand Delivered Melanie Days: Prior Verbal Notification: Recipient Understood Notice: Yes Recipient Signature: Yes Med Rec Note Co-signed by Attending: Coverage Notice Comment: Last DP export: 12/14/18 10:02 a Patient Name: CISCO MCNEAL Page [id number] at 1246 All edits/amendments must be made on the electronic document DICTATION DATE: 12/16/18 1246 CLAIMS PROCESSOR: PACHECO 12/16/18 1246 RPT#: [id number] DC DATE: STATUS: ADM IN [facility] [address] [place] [address] END OF REPORT
[2018-12-16 13:57] VITALS: BMI 33.4
[2018-12-16 16:00] VITALS: BP 178/72
--- NOTE | 2018-12-16 17:49 | NUR ---
I have reviewed this patient and I concur with the Shift Assessment completed by the Licensed Practical Nurse today this shift.
--- NOTE | 2018-12-16 20:02 | NUR ---
EVENING ROUNDS MADE. PT SITTING UP IN CHAIR AT BEDSIDE. PT DENIES NEEDS AT THIS TIME. BREATHING EVEN AND UNLABORED. WILL CTM.
--- NOTE | 2018-12-16 20:03 | NUR ---
PT UP WALKING HALLS AND AT NURSES DESK. DENIES PAIN AT THIS TIME. WILL CTM.
[2018-12-16 20:11] VITALS: BP 123/75
--- NOTE | 2018-12-16 22:32 | NUR ---
IV TO R FA INFILTRATED. IV REMOVED. TIP INTACT. IV SITED TO L WRIST 22G, PATENT, DRSG C/D/I, SALINE LOCKED. NO FURTHER CONCERNS AT THIS TIME. WILL CTM.
--- NOTE | 2018-12-17 05:34 | NUR ---
I AGREE WITH CLINIC NURSE ASSESSMENT.
[2018-12-17 05:42] VITALS: BP 166/72
[2018-12-17 06:22] LABS: BASOPHILS 0.2 % (0-2); EOSINOPHILS 2.8 % (0-7); HEMATOCRIT 42.9 % (42.0-54.0); HEMOGLOBIN 14.8 g/dL (13.5-17.5); IMMATURE GRANULOCYTES 0.3 % (0-5); LYMPHOCYTES 23.4 % (15-50); MCH 29.5 pg (26.0-34.0); MCHC 34.5 g/dL (31.0-37.0); MCV 85.6 fL (80.0-100.0); MEAN PLATELET VOLUME 10.3 fL (7.4-10.4); MONOCYTES 13.1 % (2-11); NEUTROPHILS 60.2 % (40-80); PLATELET COUNT 150 10x3/uL (130-400); RBC 5.01 10x6/uL (4.20-6.10); RDW 14.8 % (11.5-14.5); WBC 11.5 10x3/uL (4.8-10.8)
[2018-12-17 06:31] LABS: CALC OSMOLALITY 277 mosm/kg (275-300); CALCIUM 9.1 mg/dL (8.5-10.1); CARBON DIOXIDE 26.7 mmol/L (21.0-32.0); CHLORIDE - SERUM 105 mmol/L (98-107); POTASSIUM - SERUM 4.1 mmol/L (3.5-5.1); SODIUM 137 mmol/L (136-145); UREA NITROGEN 22 mg/dL (7-18); eGFR NON AFRICAN AMERICAN 79 mL/min (90-120)
[2018-12-17 06:44] LABS: GLUCOSE 113 mg/dL (74-106)
--- NOTE | 2018-12-17 07:39 | NUR ---
REC'D IN SITTING ON SIDE OF BED AWAKE AND ALERT. RESP EVEN AND UNLABORED WITH NO DISTRESS NOTED. CAN EXPRESS NEEDS AND WANTS. NO C/O NOTED OR VOICED. ASSESSMENT COMPLETD. C/L IN REACH AT BEDSIDE.
[2018-12-17] MEDS ORDERED: SULFAMETHOXAZOL1 TA3 PO (12:13)
--- NOTE | 2018-12-17 14:33 | NUR ---
DC HOME VOICE UNDERSTANDING OF DC ORDERS. NO C/O NOTED OR VOICED. IV DC. STABLE CONDITION UPON DC.
--- NOTE | 2018-12-17 15:59 | MORECARE ---
CASE MANAGEMENT DISCHARGE SUMMARY PATIENT: CISCO MCNEAL UNIT: [id number] ADM DATE: 12/13/18 AGE: 68 : 50 SEX: M ROOM/BED: D.1212 AUTHOR: APRIL BELCHER PHYSICIAN: REFERRING PHYSICIAN: MARY GUTIERREZ MD DATE OF SERVICE: 12/17/18 Discharge Plan Patient Name: CISCO MCNEAL Facility: [facility]:[place] : 1950 Planned Disposition: Home Anticipated Discharge Date: 12/17/18 Discharge Date: 12/17/2018 Expected LOS: 4 Initial Reviewer: [email or web address] Initial Review Date: 12/14/2018 Generated: 12/17/18 4:59 pm DCP- Discharge Planning Updated by [email or web address]: Nyasia Farias on 12/16/18 11:[address] CM met with patient d/c IMM explained and served 12/16/18 @ [facility]. Patient denies any discharge needs at this time. CM will continue to follow and assist as needed with discharge planning / needs. DCP- Discharge Planning Updated by [email or web address]: Vidya Gilliland on 12/14/18 9:[address] Patient Name: CISCO MCNEAL Admission Status: ER Accout number: [id number] Admission Date: 12-13-2018 : 1950 Admission Diagnosis: Attending: MARY GUTIERREZ Current LOS: 1 Anticipated DC Date: Planned Disposition: Home Primary Insurance: [facility] Discharge Planning Comments: CM met with patient to complete initial dc planning assessment. CM educated patient on the CM role and verbal consent given by patient to complete assessment. CM verified patient's address, phone number, and emergency contact phone numbers. Patient lives at home with spouse and reports he is independent in his care. At discharge patient plans to return home and feels this is a safe discharge. CM discussed availability of home health, rehab services, and medical equipment. Patient denied known discharge needs at this time. Patient reports his spouse will transport him home at time of discharge. CM will continue to follow and will assist as needed with dc plans/needs. Eyeglass Frame Truer: Vidya Gilliland DCPIA - Discharge Planning Initial Assessment Updated by [email or web address]: Vidya Gilliland on 12/14/18 10:56 am * Is the patient Alert and Oriented? Yes * How many steps to enter\exit or inside your home? * PCP TITA * Pharmacy [facility] * Preadmission Environment Home with Family * ADLs Independent * Equipment Nebulizer * Verbal permission to speak to the caregivers and representatives has been obtained from the patient. N/A * Community resources currently utilized None * Additional services required to return to the preadmission environment? No * Can the patient safely return to the preadmission environment? Yes * Has this patient been hospitalized within the prior 30 days at any hospital? No Coverage Notice Reviewer: [id number] - Nyasia Farias Notice Issued Date-Time: 12/16/2018 11:54 Notice Type: IM Discharge Notice Notice Delivered To: Patient Relationship to Patient: Self Commercial Decorator Name: Delivery Method: HAND - Hand Delivered Melanie Days: Prior Verbal Notification: Recipient Understood Notice: Yes Recipient Signature: Yes Med Rec Note Co-signed by Attending: Coverage Notice Comment: Last DP export: 12/16/18 11:46 a Patient Name: CISCO MCNEAL Page [id number] at 1559 All edits/amendments must be made on the electronic document DICTATION DATE: 12/17/181557 ALLERGY SPECIALIST: PACHECO 12/17/181557 [facility]#: [id number] DC DATE:12/17/18 STATUS: DIS IN [facility] [address] [place] [address] END OF REPORT
== END 2018-12-17 14:33 | disposition home or self-care (01) | DRG 603 ==
LOC: D.ER 20:56 → D.M3 12-13 01:18
PROVIDERS: Emergency Medicine; Family Medicine; ADMIT Internal Medicine Nephrology; ATTEND Internal Medicine Nephrology
DX: L03.113 Cellulitis of right upper limb (principal); I10 Essential (primary) hypertension; J44.9 Chronic obstructive pulmonary disease, unspecified; F17.210 Nicotine dependence, cigarettes, uncomplicated; I25.10 Atherosclerotic heart disease of native coronary artery without angina pectoris; I87.8 Other specified disorders of veins

== ENCOUNTER 2019-09-05 21:04 | Inpatient (IN) | payer OTHER ==
[~2019-09-05] VITALS: Ht 172.7 cm; Wt 89.5 kg
--- NOTE | ~2019-09-05 | HEMODYNAMI ---
PATIENT:CISCO MCNEAL MEDICAL RECORD: [id number] : [birth year] [id number] ADMISSION DATE: 09/06/19 Generatedon:09/08/201913:44 Patient name: CISCO MCNEAL Patient #: [id number] SSN: [id number] : 1950 Date of study: 09/08/2019 Page: Of Hemodynamic Procedure Report Patient Data Patient Demographics Procedure consent was obtained First Name: CISCO Gender: Male Last Name: ELIZABET : 1950 Middle Initial: PINEDA Age: 69 year(s) Patient #: [id number] Race: SSN: [id number] Additional ID: [id number] Contact details Address: [address] [place] [address] State: [place] City: [place] Zip code: [address] Admission Admission Data Admission Date: 09/06/2019 Admission Time: 17:37 Arrival Date: 09/08/2019 Arrival Time: 17:37 Admit Source: Other Insurance Payor: Private Room #: D.2127 health insurance [facility] #: [id number] Height (in.): 67.72 BSA: 2.02 (m2) Height (cm.): 172 BMI: 30.08 (kg/m2) Weight (lbs.): 196.21 Weight (kg.): 89 Lab Results Lab Result Date: 09/08/2019 Lab Result Time: 0:00 Biochemistry Name Units Result Min Max BUN mg/dl 36 --(----)-* 7 18 Creatinine mg/dl 1.2 --(---*)-- 0.6 1.3 eGFR ml/min 64.36481 *-(----)-- 90 120 NONAFRICAN CBC Name Units Result Min Max Hemoglobin g/dl 15.7 --(--*-)-- 13.5 17.5 Procedure Procedure Types Cath Procedure Diagnostic Procedure C [facility] w/Coronaries Sedation Charges Moderate Sedation up to 30 minutes PCI Procedure Coronary Stent Coronary Stent Initial Hemochron ACT Test Procedure Description Procedure Date Procedure Date: 09/08/2019 Procedure Start Time: 13:18 Procedure End Time: 13:42 Procedure Staff Name Function Anish Nolan MD Performing Physician Britany Alexandre RT Monitor Kristina Jeronimo RT Scrub Regina Cates RN Nurse Indication Angina Procedure Data Cath Procedure Fluoroscopy Diagnostic fluoroscopy Total fluoroscopy Time: 6.6 time: 6.6 min min Diagnostic fluoroscopy Total fluoroscopy dose: dose: 1509 mGy 1509 mGy Contrast Material Contrast Material Type Amount (ml) Isovue 300 211 Entry Location Entry Primary Successful Side Size Upsize Upsize Entry Closure Lopes ccessful Closure Location (Fr) 1 (Fr) 2 (Fr) Remarks Device Remarks Radial Right 6 Fr Mechanical artery Short Compression Estimated blood loss: 5 ml Diagnostic catheters Device Type Used For End Catheter Placement DIAGNOSTIC [place] 110cm 5 Procedure Fr catheter ([id number]) DIAGNOSTIC AR MOD 5Fr Procedure Catheter ([id number]) Procedure Complications No complications Procedure Medications Medication Administration Route Dosage 0.9% NaCl I.V. 100 ml/hr Oxygen etCO2 Nasal cannula 2 l/min Lidocaine 2% added to field 20 Heparin Flush Bag added to field 2 bags (1000units/500ml NS) Versed I.V. 2 mg Fentanyl I.V. 50 mcg Fentanyl I.V. 50 mcg Radial Cocktail added to field 1 syringe (Verapamil 2mg/Nitro 400mcg/Heparin 1500units) Heparin Bolus I.V. 5000 units Hemodynamics Rest BSA: 2.02 (m2) HGB: 15.7 (g/dl) O2 Consumption: Estimated: 241.88 (ml/min) O2 Co nsumption indexed: Estimated:119.74 (ml/min/m) Heart Rate: 80 (bpm) Pressure Samples Time Site Value (mmHg) Purpose Heart Use Rate(bpm) 13:20 LV 149/9,9 Snapshot 80 13:20 LV 152/9,12 Snapshot 79 13:21 AO 131/64(90) Pullback 78 13:21 LV 131/10,4 Pullback 78 Gradients Valve Time Site 1 Site 2 Mean SEP/DFP Peak To Heart Use (mmHg) (sec/min) Peak Rate (mmHg) (bpm) Aortic 13:21 LV AO 4 13 0 78 131/10,4 131/64(90) Calculations Valve P-P Mean Valve Index Valve Source Name Gradient Area Flow (cm2) Aortic 0 4 0 4 Snapshots Pre Cath Intra NCS Post Cath Vital Signs Time Heart Resp SPO2 etCO2 NIBP (mmHg) Rhythm Pain Sedation Rate (ipm) (%) (mmHg) Status Level (bpm) 13:07:39 80 23 97 37 168/92(130) NSR 0 (11) 10(A) , No pain 13:12:01 74 21 97 38.8 175/90(133) NSR 0 (11) 10(A) , No pain 13:16:25 74 20 97 38 169/86(132) NSR 0 (11) 10(A) , No pain 13:20:48 80 20 97 37.3 155/86(121) NSR 0 (11) 10(A) , No pain 13:25:06 80 20 98 36.6 150/81(116) NSR 0 (11) 9(A) , No pain 13:29:20 77 20 98 37.4 168/88(123) NSR 0 (11) 9(A) , No pain 13:33:42 75 17 96 39.6 153/83(122) NSR 0 (11) 9(A) , No pain 13:38:06 83 19 97 40.4 119/64(83) NSR 0 (11) 10(A) , No pain 13:43:07 78 19 93 40.4 173/92(135) NSR 0 (11) 10(A) , No pain Medications Time Medication Route Dose Verified Delivered Reason Not es Effectiveness by by 13:06:38 0.9% NaCl I.V. 100 Anish Tapia used for ml/hr Ovidio Darryn procedure MD JENSEN 13:06:45 Oxygen etCO2 2 l/min Anish Tapia used for Nasal Ovidio Darryn procedure cannula MD JENSEN 13:06:49 Radial Cocktail added 1 Anish Oconnell used for (Verapamil to syringe Ovidio Ovidio procedure 2mg/Nitro field MD GARZA 400mcg/Heparin 1500units) 13:06:50 Lidocaine 2% added 20ml Anish [facility]connell [facility] GARZA 13:06:54 Heparin Flush added 2 bags Anish Oconnell used for Bag to Ovidio Ovidio procedure (1000units/500ml field MD GARZA NS) 13:14:14 Versed I.V. 2 mg Anish Falcona for sedation [facility] Yaw Cates MD RN 13:14:22 Fentanyl I.V. 50 mcg Anish Tapia for sedation St Yaw Cates MD RN 13:19:38 Fentanyl I.V. 50 mcg Anish Tapia for sedation St Yaw Cates MD RN 13:30:00 Heparin Bolus I.V. 5000 Anish Tapia for chay ified units [facility] Yaw Cates anticoagulation with Dr. GARZA RN [facility] Procedure Log Time Note 12:33:56 Informed consent obtained and on chart 12:34:02 Diagnostic Cath Status : Elective 12:34:47 Indication : Angina 12:37:26 Arrival Date: 09/08/2019 5:37:00 PM 12:37:51 Admit Source: Other 12:37:59 Insurance Payor : Private health insurance 12:38:18 Patient Height : 67.72 inches 12:38:24 Patient Weight : 196.21 lbs 12:39:10 Lab Result : Hemoglobin 15.7 g/dl 12:39:10 Lab Result : eGFR NONAFRICAN 64.42243 ml/min 12:39:10 Lab Result : BUN 36 mg/dl 12:39:10 Lab Result : Creatinine 1.2 mg/dl 12:39:21 Regina Cates RN sent for patient. Start room use. 12:39:22 Time tracking: Regular hours (M-F 7:00 - 5:00) 12:39:28 Plan of Care:Hemodynamics will remain stable., Cardiac rhythm will remain stable., Comfort level will be maintained., Respiratory function will remain adequate., Patient/ family verbilizes understanding of procedure., Procedure tolerated without complication., Recovers from procedure without complications.. 12:43:21 Patient received from Pre/Post Procedure Room to CCL 2 Alert and oriented. Tansferred to table in Supine position. 12:43:23 Warm blankets applied, and dex hugger turned on for patient comfort. 12:43:25 Correct patient and procedure confirmed by team. 12:43:26 Pre-procedure instructions explained to patient. 12:43:47 H&P Date Dictated: 09/06/2019 Within 30 days and on chart., H&P Addendum completed by physician on day of procedure. (MUST COMPLETE FOR ALL OUTPATIENTS). 12:43:53 Family in patients room. 12:43:55 Patient NPO since Midnight. 12:44:06 Is the patient allergic to Iodine/contrast media? Yes. 12:45:07 Is patient on blood thinner?Yes 12:45:10 ACC The patient was administered the following blood thiners within the last 24 hours: ACCPlavix 12:45:58 Patient diabetic? No. 12:46:24 Snore? Yes 12:46:26 Sleep apnea? No 12:46:31 Airway obstruction? Yes copd 12:46:40 IV patent on arrival in left forearm with 0.9% NaCl at [facility]. 12:46:46 Lab results completed and on chart. 12:47:04 Stress Test: no; N/A ? 12:47:15 Right groin area was prepped with chlora-prep and draped in sterile fashion 12:47:19 Alarms reviewed by R. N. 12:47:19 Sharps counted by scrub and verified by R.N. 12:49:52 2) 60-89 Mildly reduced kidney function, and other findings (as for stage 1) point to kidney disease. 12:49:59 Risk of Mortality: .1 12:50:02 Risk of blood transfusion: .2 12:50:04 Risk of BERENICE: 1.1 12:55:01 Full Disclosure recording started 12:55:03 Pre-op teaching completed and patient verbalized understanding. 12:55:13 Previous problem with sedation/anesthesia? No ? 12:55:15 Deviated septum? No 12:55:16 Opens mouth fully? Yes 12:55:17 Sticks out tongue? Yes 12:55:27 Dentures? No ? 12:55:31 Pre procedure: right dorsailis pedis pulse 1+ Palpable, but thready & weak; easily obliterated 13:06:28 Vital chart was started 13:06:38 0.9% NaCl 100 ml/hr I.V. was administered by Regina Cates RN; used for procedure; Verbal order read back and verified. 13:06:45 Oxygen 2 l/min etCO2 Nasal cannula was administered by Regina Cates RN; used for procedure; Verbal order read back and verified. 13:06:49 Radial Cocktail (Verapamil 2mg/Nitro 400mcg/Heparin 1500units) 1 syringe added to field was administered by Anish Nolan MD; used for procedure; Verbal order read back and verified. 13:06:50 Lidocaine 2% 20ml vial added to field was administered by Anish Nolan MD; for local anesthetic; Verbal order read back and verified. 13:06:54 Heparin Flush Bag (1000units/500ml NS) 2 bags added to field was administered by Anish Nolan MD; used for procedure; Verbal order read back and verified. 13::58 Physician arrived ::58 --------ALL STOP TIME OUT------ ::59 Final Timeout: patient, procedure, and site verified with staff and physician. All members of the team are in agreement. ::59 Final Timeout: patient, procedure, and site verified with staff and physician. All members of the team are in agreement. 13:14:10 Bilateral groins site verified by team. 13:14:14 Versed 2 mg I.V. was administered by Regina Cates RN; for sedation; Verbal order read back and verified. 13:14:14 Right Radial site verified by team. 13:14:19 Fire Safety Assessment: A--An alcohol-based skin anteseptic being used preoperatively., C--Open oxygen or nitrous oxide is being used., D--An ESU, laser, or fiber-optic light is being used. 13:14:22 Fentanyl 50 mcg I.V. was administered by Regina Cates RN; for sedation; Verbal order read back and verified. 13:14:25 Physical assessment completed. ASA score P 3 - A patient with severe systemic disease as per Anish Nolan MD. 13:14:31 Sedation plan: IV Moderate Sedation Medication:Versed, Fentanyl 13:18:21 Procedure started. 13:18:37 Local anesthetic to right radial artery with Lidocaine 2% by Anish Nolan MD.INITIAL ACCESS ONLY 13:18:45 A 6 Fr Short sheath was inserted into the Right Radial artery 13:18:52 j wire advanced. 13:18:58 Use device set Radial Dx or PCI 13:18:59 ACIST Syringe (66646) opened to sterile field. 13:18:59 Medline Cath Pack ([id number]) opened to sterile field. 13:19:00 Bag Decanter (2002S) opened to sterile field. 13:19:00 ACIST Hand Control (84050) opened to sterile field. 13:19:00 ACIST Manifold (21787) opened to sterile field. 13:19:01 Tegaderm 4 x 4 (1626W) opened to sterile field. 13:19:03 MBrace Wrist Support (065607447) opened to sterile field. 13:19:05 EMERALD Guide Wire (502-625) opened to sterile field. 13:19:06 SHEATH 6FR RAIN (7919177) opened to sterile field. 13:19:13 A DIAGNOSTIC [place] 110cm 5 Fr catheter (061237) was advanced over the wire and used for Procedure. 13:19:38 Fentanyl 50 mcg I.V. was administered by Regina Cates RN; for sedation; Verbal order read back and verified. 13:19:38 Zero performed for pressure channel P1 13:19:43 Zero performed for pressure channel P1 13:19:46 Zero performed for pressure channel P1 13:20:12 LV angiography performed. 13:21:18 LV gram done using AGARWAL 13:21:33 EF : 30 % 13:21:43 LCA angiography performed. 13:24:39 Catheter removed. 13:24:54 A DIAGNOSTIC AR MOD 5Fr Catheter ([id number]) was advanced over the wire and used for Procedure. 13:25:02 RCA angiography performed. 13:25:51 Catheter removed. 13:27:15 WHISPER 300cm guide wire ([id number]) opened to sterile field. 13:27:16 GUIDE 6FR XBLAD 3.5 catheter (94649913) opened to sterile field. 13:27:17 INFLATOR Merit BasixCompak (QZ2598) opened to sterile field. 13:27:26 Proceeding to intervention. 13:27:41 6 Fr xblad3.5 guide catheter was inserted over the wire 13:27:55 WHISPER wire advanced. 13:30:00 Heparin Bolus 5000 units I.V. was administered by Regina Cates RN; for anticoagulation; verified with Dr. Blue Verbal order read back and verified. 13:30:04 Wire advanced across lesion. 13:33:33 Place stent Inflation Number: 1 A LIZY RX 3.0 x 15 stent ([id number]) was prepped and advanced across the Mid LAD 80. The stent was deployed at 14 MALIK for 0:19 (min:sec) 0. 13:34:18 Stent catheter was removed intact over wire. 13:37:38 Place stent Inflation Number: 1 A LIZY OTW 3.5 x 22 stent ([id number]) was prepped and advanced across the Prox LAD 80. The stent was deployed at 14 MALIK for 0:25 (min:sec) 0. 13:39:45 ZEPHYR REGULAR TR BAND (101447) opened to sterile field. 13:39:49 Wire removed. 13:39:50 Guide catheter removed. 13:39:59 Sheath removed intact; hemostasis achieved with Mechanical Compression to the Right Radial artery. 13:40:02 Procedure ended.(Physican Out) 13:40:13 Fluoroscopy time 06.60 minutes. 13:40:18 Fluoroscopy dose: 1509 mGy 13:40:18 Flurop Dose total: 1509 13:40:22 Dose Area Product 54647 mGy/cm. 13:40:32 Contrast amount:Isovue 300 211ml. 13:40:35 Maximum allowable dose exceeded? No. 13:40:36 Sharps counted by scrub and verified by R.N. 13:40:38 Callaway band inflated with 10cc of air. 13:40:39 Insertion/operative site no bleeding no hematoma. 13:40:41 Post Procedure Pulses reassessed and unchanged 13:40:49 Post-procedure physical assessment completed. ASA score P 3 - A patient with severe systemic disease as per Anish Nolan MD. 13:40:54 Post procedure rhythm: unchanged. 13:40:57 Estimated blood loss: 5 ml 13:40:59 Post procedure instruction explained to patient.Patient verbalizes understanding. 13:41:34 Procedure type changed to Cath procedure, Diagnostic procedure, LHC, C w/Coronaries, Sedation Charges, Moderate Sedation up to 30 minutes, PCI procedure, Coronary Stent, Coronary Stent Initial, Hemochron ACT Test 13:41:43 Procedure and supply charges have been captured, reviewed, submitted and are correct. 13:42:09 Procedure Complication : No complications 13:42:12 Vital chart was stopped 13:42:24 [facility] Findings: MVD- PCI performed (see procedure note) 13:42:34 ACT drawn and resulted at 204 seconds. (normal therapeutic range 180-240 seconds). 13:42:41 Operative report dictated upon procedure completion. 13:42:42 See physician's report for complete and final results. 13:42:45 Report given to [facility]. 13:42:50 Patient transfered to [facility] with Stretcher. 13:42:52 Procedure ended. 13:42:52 Full Disclosure recording stopped 13:42:58 End room use (Document Last) 13:44:03 End room use (Document Last) Intervention Summary Intervention Notes Time ActionType Lesion and Equipment Used Action# Pressure Duration Attributes 13:33:33 Place stent Mid LAD LIZY RX 3.0 x 1 14 00:19 15 stent ([id number]) 13:37:38 Place stent Prox LAD LIZY OTW 3.5 x 1 14 00:25 22 stent ([id number]) Device Usage Item Name Manufacture Quantity Catalog Hospital Part [facility] Lot# / Number Charge Number Stock Stock Serial# Code ACIST Syringe Acist 1 98383 332619 201336 164495 20 (11372) Medical Systems Inc Medline Cath Medline 1 [id number] 960925 85944 020129 5 Pack ([id number]) Bag Decanter Microtek 1 2002S 814189 89030 943083 5 (2002S) Medical Inc. ACIST Hand Acist 1 15947 409214 101533 860153 5 Control Medical (98112) Systems Inc ACIST Manifold Acist 1 30878 009315 367875 301423 5 (95002) Medical Systems Inc Tegaderm 4 x 4 3M 1 1626W 091346 298074 840486 5 (1626W) MBrace Wrist Advanced 1 140-0250-00 862794 91725 684430 5 Support Vascular ([id number]) Dynamics EMERALD Guide Cardinal 1 502-455 819104 815800 698848 5 Wire (502455) Health SHEATH 6FR Cardinal 1 7045454 087988 6216832 730981 5 RAIN (1096242) Health DIAGNOSTIC Terumo 1 405013 041945 432739 840300 5 [place] 110cm 5 Fr catheter (000093) DIAGNOSTIC [place] Cardinal 1 287649M 282600 486609 997894 15 MOD 5Fr Health Catheter (455229A) WHISPER 300cm [place] 1 [id number] 711329 332822 617229 5 guide wire Vascular (0129900SA) GUIDE 6FR Cardinal 1 59527699 551519 945649 381973 10 XBLAD 3.5 Health catheter (06744493) INFLATOR Merit Merit 1 BV2285 108611 209076 445075 15 BasixCompak Medical (UH6128) LIZY RX 3.0 x Medtronic 1 [id number] 841885 3496977 462925 5 [id number] 15 stent ([id number]) LIZY OTW 3.5 x Medtronic 1 [id number] 188070 5774980 000125 5 [id number] 22 stent ([id number]) ZEPHYR REGULAR Cardinal 1 165940 576420 9220749 125692 5 [facility] (713502) Signature Audit [place] Stage Time Signature Unsigned Intra-Procedure 09/08/2019 Britany Alexandre 1:43:35 PM RT(R) Intra-Procedure 09/08/2019 Regina Cates 1:44:03 PM RN Intra-Procedure 09/08/2019 Anish Cohen 1:44:34 PM Yaw GARZA Signatures Performing Physician : Signature : Anish Nolan MD Date : Time : Monitor : Britany Alexandre Signature : RT Date : Time : Nurse : Regina Cates RN Signature : Date : Time : [facility] [address] [place] [address]
[~2019-09-05 21:04] MED LIST changes: +SULFAMETHOXAZOL1 TA3 PO
[2019-09-05] MEDS ORDERED: PULMICORT0.5 MG/21 INH (21:15)
[2019-09-05] MEDS ORDERED: PLAVIX75 MG PO (21:15)
[2019-09-05] MEDS ORDERED: LIPITOR20 MG PO (21:15)
[2019-09-05] MEDS ORDERED: CARAFATE1 G PO (21:16)
[2019-09-05] MEDS ORDERED: COMBIGAN OPHT DR5 ML EACH EYE (21:16)
[2019-09-05] MEDS ORDERED: LEVOFLOXACIN500 MG PO (21:17)
[2019-09-05] MEDS ORDERED: PROLENSA EYE (21:17)
[2019-09-05] MEDS ORDERED: OFLOXACIN (21:18)
[2019-09-05] MEDS ORDERED: PRED MILD 0.1210 ML EACH EYE (21:18)
[2019-09-05 21:37] LABS: BASOPHILS 0.2 % (0-2); EOSINOPHILS 1.8 % (0-7); HEMATOCRIT 44.5 % (42.0-54.0); HEMOGLOBIN 15.4 g/dL (13.5-17.5); IMMATURE GRANULOCYTES 0.2 % (0-5); LYMPHOCYTES 20.8 % (15-50); MCH 29.6 pg (26.0-34.0); MCHC 34.6 g/dL (31.0-37.0); MCV 85.4 fL (80.0-100.0); MEAN PLATELET VOLUME 9.7 fL (7.4-10.4); MONOCYTES 10.1 % (2-11); NEUTROPHILS 66.9 % (40-80); RBC 5.21 10x6/uL (4.20-6.10); RDW 14.2 % (11.5-14.5); WBC 12.8 10x3/uL (4.8-10.8)
[2019-09-05 21:45] LABS: PLATELET COUNT 182 10x3/uL (130-400)
[2019-09-05 21:48] LABS: APTT 25.9 SECONDS (22.8-39.4); INR 1.06 (0.85-1.17); PROTIME 13.8 SECONDS (11.6-15.0)
[2019-09-05 21:49] LABS: D-DIMER-QUANTITATIVE 1.42 ug/mLFEU (0.20-0.54)
[2019-09-05 21:50] LABS: CALC OSMOLALITY 277 mosm/kg (275-300); CALCIUM 8.3 mg/dL (8.5-10.1); CARBON DIOXIDE 27.5 mmol/L (21.0-32.0); CHLORIDE - SERUM 103 mmol/L (98-107); CREATININE - SERUM 1.2 mg/dL (0.6-1.3); GLUCOSE 136 mg/dL (74-106); POTASSIUM - SERUM 3.7 mmol/L (3.5-5.1); SODIUM 137 mmol/L (136-145); UREA NITROGEN 19 mg/dL (7-18); eGFR NON AFRICAN AMERICAN 64 mL/min (90-120)
[2019-09-05 22:00] VITALS: BP 152/67
[2019-09-05 22:16] LABS: BILIRUBIN - TOTAL 0.23 mg/dL (0.2-1.3); CKMB 0.6 U/L (0.0-3.6); CREATINE KINASE 459 UL (21-232); PRO BNP 2765 pg/mL (0-125); PROTEIN - SERUM 6.7 g/dL (6.4-8.2)
[2019-09-05 22:40] LABS: ALBUMIN 3.3 g/dL (3.4-5.0); ALKALINE PHOSPHATASE 48 U/L (30-120)
[2019-09-05 22:41] LABS: ALT (SGPT) 36 U/L (10-68); TROPONIN-I 0.091 ng/mL (0.000-0.060)
--- NOTE | 2019-09-05 22:55 | NUR ---
CALLED RADIOLOGY AT THIS TIME TO INFORM THEM THAT PT RECEIVED MEDICATIONS PER EMAR.
[2019-09-05 23:01] VITALS: BP 140/69
--- NOTE | 2019-09-05 23:28 | NUR ---
PT VOICES THAT HE "FEELS A LITTLE BIT BETTER." AFTER RECEIVING ORDERED MEDICATIONS. EDP NOTIFIED.
[2019-09-06] VITALS (11 sets, daily range): BP systolic 146–189; BP diastolic 60–91; BMI 28.1
--- NOTE | 2019-09-06 00:45 | NUR ---
UP TO BATHROOM.
--- NOTE | 2019-09-06 00:50 | NUR ---
BACK TO BED.
--- NOTE | 2019-09-06 02:51 | NUR ---
PT TRANSFERED TO ROOM 10 IN ED. NO SIGNS DISTRESS NOTED.
--- NOTE | 2019-09-06 03:42 | NUR ---
PT AMBULATED FROM RESTROOM AT THIS TIME. VOIDED 250ML YELLOW URINE. STEADY GAIT NOTED. WILL CONTINUE TO MONITOR.
--- NOTE | 2019-09-06 04:20 | NUR ---
PT RESTING IN BED WITH EYES CLOSED. RESPIRATIONS APPEAR EVEN AND UNLABORED. WILL CONTINUE TO MONITOR.
--- NOTE | 2019-09-06 05:54 | NUR ---
PT AMBULATED TO RESTROOM WITH STEADY GAIT AT THIS TIME.
--- NOTE | 2019-09-06 12:17 | NUR ---
PT ARRIVED TO FLOOR VIA WHEELCHAIR NO SIGNS OF DISTRESS NOTED. ADMISSION ASSESSMENT PERFORMED. WILL CONT TO FOLLOW POC
[2019-09-06] MEDS ORDERED: BROVANA15 MCG/2 M INH (12:26)
--- NOTE | 2019-09-06 13:30 | NUR ---
PT ADIMENT THAT HE IS GOING OUTSIDE TO SMOKE. ADVISED PT HE DOES NOT NEED TO KEEP THE NICOTINE PATCH ON IF HE IS GOING TO GO OUTSIDE TO SMOKE. PT STATES HE WILL BE FINE. ADVISED PT HE CAN BECOME DIZZY AND PASS OUT IF HE LEAVES THE PATCH ON. PT SMILED AT NURSE AND STATES, "I WILL BE OK." PT'S STANDING BESIDE HIM AND PULLED UP PT SLEEVE, PULLED OFF PATCH AND HANDED IT TO NURSE. PT THEN LEFT OFF UNIT TO GO SMOKE. NOTIFIED BRITTANY ASHLEY
[2019-09-06 15:23] LABS: CKMB 4.4 U/L (0.0-3.6); CREATINE KINASE 256 UL (21-232); TROPONIN-I 0.039 ng/mL (0.000-0.060)
[2019-09-06 16:49] LABS: APPEARANCE CLEAR (CLEAR); BILIRUBIN NEGATIVE (NEGATIVE); COLOR YELLOW (YELLOW); GLUCOSE 50 mg/dL (NEGATIVE); KETONE NEGATIVE (NEGATIVE); NITRITE NEGATIVE (NEGATIVE); PROTEIN NEGATIVE (NEGATIVE); SPECIFIC GRAVITY 1.025 (1.005-1.020); UROBILINOGEN NORMAL (NORMAL)
--- NOTE | 2019-09-06 17:00 | NUR ---
PIV TO RIGHT FA INFILTRATED. PIV REMOVED WITH CATHETER TIP INTACT. 20G PIV INSERTED TO RIGHT HAND X1 ATTEMPT. PT TOLERATED WELL. AT BEDSIDE. WILL CONT TO FOLLOW POC
[2019-09-06 17:20] LABS: ANION GAP 17.3 mmol/L (8-16); CALCIUM 8.9 mg/dL (8.5-10.1); CARBON DIOXIDE 24.2 mmol/L (21.0-32.0); CHOL - HDL RATIO 2.9 ratio (2.3-4.9); CREATININE - SERUM 1.4 mg/dL (0.6-1.3); LDL-HDL RATIO 1.4 ratio (1.5-3.5)
[2019-09-06 17:23] LABS: POTASSIUM - SERUM 4.5 mmol/L (3.5-5.1)
--- NOTE | 2019-09-06 18:19 | NUR ---
RECEIVED PT FROM MED SURG. PT IS AAO AND UP AD HERRERA. RR EVEN AND UNLABORED ON RA. PIV SALINE LOCKED. NO S/S OF DISTRESS NOTED. PT DENIES ANY NEEDS. WILL CTM.
--- NOTE | 2019-09-06 18:32 | NUR ---
PT REFUSING TELEMTRY STATING "YOU WILL NEVER KEEP THE ELECTRODES ON ME. ITLL END UP IN THE FLOOR. IM NOT WEARING IT."
--- NOTE | 2019-09-06 19:03 | NUR ---
SPOKE WITH PT AND HE IS REFUSING TO WEAR TELEMETRY I ATTEMPTED TO EXPLAIN THE IMPORTANCE TO PT BUT HE CONTINUES TO REFUSE BED LOW AND LOCKED CALL LIGHT IN REACH LCTA
--- NOTE | 2019-09-06 20:36 | NUR ---
IN PTs ROOM PREPARING MEDICATIONS AND PT STATES HE IS TAKING HIS OWN MEDS THE WAY HE WANTS TO TAKE THEM SO I WITH HELD MEDS THAT I HAVE
[2019-09-07 00:09] VITALS: BP 175/81
--- NOTE | 2019-09-07 03:30 | NUR ---
I have reviewed this patient and I concur with the Shift Assessment completed by the Licensed Practical Nurse today this shift.
[2019-09-07 05:23] LABS: BASOPHILS 0.1 % (0-2); EOSINOPHILS 0.3 % (0-7); HEMATOCRIT 45.4 % (42.0-54.0); HEMOGLOBIN 15.3 g/dL (13.5-17.5); IMMATURE GRANULOCYTES 0.3 % (0-5); LYMPHOCYTES 18.7 % (15-50); MCH 29.1 pg (26.0-34.0); MCHC 33.7 g/dL (31.0-37.0); MCV 86.3 fL (80.0-100.0); MEAN PLATELET VOLUME 10.2 fL (7.4-10.4); MONOCYTES 10.9 % (2-11); NEUTROPHILS 69.7 % (40-80); PLATELET COUNT 191 10x3/uL (130-400); RBC 5.26 10x6/uL (4.20-6.10); RDW 14.2 % (11.5-14.5)
[2019-09-07 05:56] LABS: APTT 23.9 SECONDS (22.8-39.4); INR 1.08 (0.85-1.17); PROTIME 13.9 SECONDS (11.6-15.0)
[2019-09-07 05:58] LABS: ANION GAP 13.8 mmol/L (8-16); CARBON DIOXIDE 27.6 mmol/L (21.0-32.0); CREATININE - SERUM 1.2 mg/dL (0.6-1.3); MAGNESIUM - SERUM 2.5 mg/dL (1.8-2.4); PHOSPHOROUS 4.2 mg/dL (2.5-4.9); POTASSIUM - SERUM 4.4 mmol/L (3.5-5.1)
[2019-09-07 06:24] VITALS: BP 144/74
--- NOTE | 2019-09-07 08:41 | NUR ---
AM MEDS GIVEN AT THIS TIME. ALSO GAVE 2MG OF MORPHINE FOR PAIN LEVEL OF 10/10. PT A/O X4. RT HAND IV SL. PT DENIES ANY OTHER NEEDS AT THIS TIME. CALL LIGHT IN REACH, NAD NOTED, WILL CONTINUE PLAN CARE.
[2019-09-07 09:17] VITALS: BP 163/83
--- NOTE | 2019-09-07 12:26 | NUR ---
PT UP TO SIDE OF BED, EATING BREAKFAST, DENIES ANY NEEDS AT THIS TIME. FAMILY AT BEDSIDE, CALL LIGHT IN REACH, NAD NOTED, WILL CONTINUE TO MONITOR.
[2019-09-07 14:14] VITALS: BP 177/76
[2019-09-07 14:27] VITALS: Ht 172.7 cm; Wt 89.5 kg
--- NOTE | 2019-09-07 14:48 | NUR ---
500MG OF TYLENOL GIVEN FOR PAIN LEVEL OF 10/10. PT DENIES ANY OTHER NEEDS AT THIS TIME. CALL LIGHT IN REACH, NAD NOTED,W ILL CONTINUE TO MONITOR.
[2019-09-07 17:01] VITALS: BP 125/65
[2019-09-07 21:33] VITALS: BP 136/82
[2019-09-08] VITALS (7 sets, daily range): BP systolic 117–178; BP diastolic 50–86
[2019-09-08 05:37] LABS: BASOPHILS 0 % (0-2); EOSINOPHILS 0.1 % (0-7); HEMOGLOBIN 15.7 g/dL (13.5-17.5); IMMATURE GRANULOCYTES 0.5 % (0-5); LYMPHOCYTES 9.7 % (15-50); MCH 28.9 pg (26.0-34.0); MCHC 33.4 g/dL (31.0-37.0); MCV 86.4 fL (80.0-100.0); MONOCYTES 5.3 % (2-11); NEUTROPHILS 84.4 % (40-80); PLATELET COUNT 195 10x3/uL (130-400); RBC 5.44 10x6/uL (4.20-6.10); RDW 14.4 % (11.5-14.5); WBC 14.6 10x3/uL (4.8-10.8)
[2019-09-08 05:55] LABS: CALCIUM 8.9 mg/dL (8.5-10.1); CARBON DIOXIDE 28.5 mmol/L (21.0-32.0); CREATININE - SERUM 1.2 mg/dL (0.6-1.3); MAGNESIUM - SERUM 2.5 mg/dL (1.8-2.4); PHOSPHOROUS 4.2 mg/dL (2.5-4.9); POTASSIUM - SERUM 4.5 mmol/L (3.5-5.1)
[2019-09-08 09:08] LABS: CHOL - HDL RATIO 2.7 ratio (2.3-4.9); LDL-HDL RATIO 1.3 ratio (1.5-3.5)
--- NOTE | 2019-09-08 13:31 | NUR ---
I have reviewed this patient and I concur with the Shift Assessment completed by the Licensed Practical Nurse today this shift.
--- NOTE | 2019-09-08 14:21 | NUR ---
PT RETURNED FROM DIRECTOR STAFFING. PT IS AAO. NS INFUSING @100ML/HR VIA R.HAND PIV. TELEMETRY APPLIED. ZEPHER BAND IN PLACE. NO S/S OF HEMATOMA PRESENT. PT DENIES ANY NEEDS. WILL CTM.
--- NOTE | 2019-09-08 17:07 | NUR ---
ENTERED ROOM @1705 TO FIND THAT PT HAD ALREADY REMOVED ZEPHER BAND AND WRIST BOARD. NO S/S OF HEMATOMA PRESENT. RADIAL PULSE STRONG. WILL CTM. INSTRUCTED PT ON IMPORTANCE OF COMPLIANCE TO POST PROCEDURE PROTOCOLS AND RISK OF NOT FOLLOWING THEM. HE VERBALIZED UNDERSTANDING.
--- NOTE | 2019-09-08 19:12 | NUR ---
AT REST WITH EYES CLOSED BED LOW AND LOCKED CALL LIGHT WITH PT
--- NOTE | 2019-09-08 19:53 | NUR ---
pt is refusing care from me at this time unable to examine rt groin pt up and ambulating around room
[2019-09-09] VITALS: BP 188/91
--- NOTE | 2019-09-09 03:48 | NUR ---
I have reviewed this patient and I concur with the Shift Assessment completed by the Licensed Practical Nurse today this shift.
[2019-09-09 04:00] VITALS: BP 181/79
[2019-09-09 05:10] LABS: BASOPHILS 0 % (0-2); EOSINOPHILS 0 % (0-7); HEMATOCRIT 45.5 % (42.0-54.0); IMMATURE GRANULOCYTES 0.6 % (0-5); LYMPHOCYTES 6.6 % (15-50); MCH 28.8 pg (26.0-34.0); MCV 87.3 fL (80.0-100.0); MEAN PLATELET VOLUME 10.5 fL (7.4-10.4); MONOCYTES 8.4 % (2-11); NEUTROPHILS 84.4 % (40-80); PLATELET COUNT 194 10x3/uL (130-400); RBC 5.21 10x6/uL (4.20-6.10); RDW 14.3 % (11.5-14.5)
[2019-09-09 05:19] LABS: ANION GAP 10.5 mmol/L (8-16); CALCIUM 8.6 mg/dL (8.5-10.1); CARBON DIOXIDE 27.7 mmol/L (21.0-32.0); CREATININE - SERUM 1.4 mg/dL (0.6-1.3); MAGNESIUM - SERUM 2.4 mg/dL (1.8-2.4); POTASSIUM - SERUM 4.2 mmol/L (3.5-5.1)
[2019-09-09 05:22] LABS: PHOSPHOROUS 2.9 mg/dL (2.5-4.9)
--- NOTE | 2019-09-09 08:03 | NUR ---
ASSESSMENT DONE. DENIES NEEDS
--- NOTE | 2019-09-09 08:54 | OP ---
PATIENT NAME: CISCO MCNEAL MEDICAL RECORD: [id number] :50 LOCATION:D.M2 D.2127 ADMISSION DATE:09/06/19 SURGEON: HELENA FOSS MD DATE OF OPERATION: 09/08/2019 PROCEDURE: Left heart catheterization, selective coronary angiography, right radial approach. CATHETERS: Radial sheath, Wheatley catheter. The procedure was well tolerated. STRATEGIC ACCOUNT EXECUTIVE stenting. LAD procedure finished. FINDINGS: Left ventriculography in 30-degree AGARWAL view shows global hypokinesis, LV function reduced 30% to 35%. CORONARY ANATOMY: LEFT MAIN: Left main is free of disease. LAD: Has 2 sequential stenosis of 80%, 1 at the midportion 1 more proximally both somewhat diffuse. CIRCUMFLEX: Circumflex has about a 50% stenosis in mid portion. Somewhat codominant system RIGHT CORONARY ARTERY: Luminal irregularities only. PLAN: Intervention to LAD momentarily. DESCRIPTION OF PROCEDURE: An XB LAD had a good guiding catheter provided excellent guide catheter support followed by 300-cm Whisper wire was placed across both lesions of LAD down this portion of vessel. The mid portion of vessel 80% was addressed with a 3.0 x 50 mm Baldwin drug-eluting stent up to 14 atmospheres. Proximal more diffuse stenosis of 80% was addressed with a 3.5 x 22 mm Baldwin drug-eluting stent up to 14 atmospheres. Final angiography shows resolution, diffuse 80% stenosis, no significant residual. SHERITA flow was 3 throughout the procedure. Sheath closed with TR band. Plavix loaded in the lab. TRANSINT:[id number] Voice Confirmation ID: [id number] DOCUMENT ID: [id number] HELENA FOSS MD at 0854 CC: [id number] DICTATION DATE: 09/08/19 1345 SEARCH ENGINE MARKETING STRATEGIST: 09/08/19 2131 ADM IN [place] [id number] [place] [address]
[2019-09-09 10:20] VITALS: BP 181/70
[2019-09-09 11:10] LABS: IMMUNOGLOBULIN A 99 mg/dL (61-437); IMMUNOGLOBULIN G 844 mg/dL (700-1600)
--- NOTE | 2019-09-09 13:18 | NUR ---
I have reviewed this patient and I concur with the Shift Assessment completed by the Licensed Practical Nurse today this shift.
--- NOTE | 2019-09-09 13:42 | NUR ---
Nutrition Follow-up: Eating well. Diet: Low Sodium PO intake: 100% No new wt; last wt: 191.8# (09/07) Last BM: 09/07 per chart Labs noted: Glu 230 Meds noted: Prednisone, Zofran, Carafate -May consider low sodium carb consistent diet 2/2 elevated Glu. -Need new wt; noted daily wts ordered. -RD following.
[2019-09-09 13:49] VITALS: BP 180/84
--- NOTE | 2019-09-09 16:10 | NUR ---
WITHOUT CHANGES OR DISTRESS NOTED AT THIS TIME. DENIES NEEDS
[2019-09-09 16:26] VITALS: BP 166/72
[2019-09-09] MEDS ORDERED: VIBRAMYCIN 100100 MG PO (16:32)
[2019-09-09] MEDS ORDERED: MUCINEX600 MG PO (16:32)
[2019-09-09] MEDS ORDERED: SINGULAIR10 MG PO (16:33)
[2019-09-09] MEDS ORDERED: PREDNISONE10 MG PO (16:33)
[2019-09-09] MEDS ORDERED: BAYER CHEWABLE81 MG PO (16:52)
--- NOTE | 2019-09-09 17:01 | NUR ---
PATIENT STATES TO CHACHA, DOMESTIC LAUNDRY WORKER THAT HE IS NOT "FEELING WELL, JUST LIKE WHEN I CAME IN". PAGE INTO [facility] TO LET HER BE AWARE OF THIS. HOLDING DISCHARGE UNTIL FURTHER ORDERS.
--- NOTE | 2019-09-09 17:20 | NUR ---
DR JOHNSON TO TELL ME THAT PATIENT CAN STAY "ANOTHER NIGHT". PAGE TO [facility] TO LET HER KNOW.
--- NOTE | 2019-09-09 17:27 | NUR ---
[facility] TO CALL BACK WITH "OK".
--- NOTE | 2019-09-09 18:24 | MORECARE ---
CASE MANAGEMENT DISCHARGE SUMMARY PATIENT: CISCO MCNEAL UNIT: [id number] ADM DATE: 09/06/19 AGE: 69 : 50 SEX: M ROOM/BED: D.6595 AUTHOR: APRIL BELCHER PHYSICIAN: REFERRING PHYSICIAN: RUFINO MORRIS MD DATE OF SERVICE: 09/09/19 Discharge Plan Patient Name: CISCO MCNEAL Facility: [facility]:[place] : 1950 Planned Disposition: Home Anticipated Discharge Date: 09/09/19 Discharge Date: Expected LOS: 3 Initial Reviewer: [email or web address] Initial Review Date: 09/09/2019 Generated: 09/09/19 7:24 pm DCPIA - Discharge Planning Initial Assessment Updated by [email or web address]: Adal Lowe on 09/09/19 6:23 pm * Is the patient Alert and Oriented? Yes * How many steps to enter\exit or inside your home? 4-O / 1-I * PCP DR. RIVERS * Pharmacy [address] * Preadmission Environment Home with Family * ADLs Independent * Equipment Cane Nebulizer Walker * Other Equipment NO MEDICAL EQUIPMENT PROVIDER PREFERENCE * List name and contact numbers for known caregivers / representatives who currently or will assist patient after discharge: FAREED MCNEAL, SPOUSE, * Verbal permission to speak to the caregivers and representatives has been obtained from the patient. Yes * Community resources currently utilized None * Please name any agencies selected above. NONE * Additional services required to return to the preadmission environment? No * Can the patient safely return to the preadmission environment? Yes * Has this patient been hospitalized within the prior 30 days at any hospital? No Coverage Notice Reviewer: [id number] - Adal Lowe Notice Issued Date-Time: 09/09/2019 16:55 Notice Type: IM Discharge Notice Notice Delivered To: Patient Relationship to Patient: Neck Band Operator Name: Delivery Method: HAND - Hand Delivered Melanie Days: Prior Verbal Notification: Recipient Understood Notice: Yes Recipient Signature: Yes Med Rec Note Co-signed by Attending: Coverage Notice Comment: Patient Name: CISCO MCNEAL Page [phone] at 1824 All edits/amendments must be made on the electronic document DICTATION DATE: 09/09/191823 DEPUTY GENERAL COUNSEL: PACHECO 09/09/191823 RPT#: [id number] [place] DATE: STATUS: ADM IN [facility] [address] [place] [address] END OF REPORT
--- NOTE | 2019-09-09 18:31 | NUR ---
DC GIVEN TO PT
--- NOTE | 2019-09-09 18:43 | NUR ---
DC HOME PER PERSONAL CAR
--- NOTE | 2019-09-09 18:46 | MORECARE ---
CASE MANAGEMENT DISCHARGE SUMMARY PATIENT: CISCO MCNEAL UNIT: [id number] ADM DATE: 09/06/19 AGE: 69 : 50 SEX: M ROOM/BED: D.5100 AUTHOR: YEDOC PHYSICIAN: REFERRING PHYSICIAN: RUFINO MORRIS MD DATE OF SERVICE: 09/09/19 Discharge Plan Patient Name: CISCO MCNEAL Facility: [facility]:[place] : 1950 Planned Disposition: Home Anticipated Discharge Date: 09/09/19 Discharge Date: 09/09/2019 Expected LOS: 3 Initial Reviewer: [email or web address] Initial Review Date: 09/09/2019 Generated: 09/09/19 7:46 pm Comments DCP- Discharge Planning Updated by [email or web address]: Adal Lowe on 09/09/19 5:[address] Patient Name: CISCO MCNEAL Admission Status: ER Accout number: [id number] Admission Date: 09-06-2019 : 1950 Admission Diagnosis: Attending: RUFINO MORRIS Current LOS: 3 Anticipated DC Date: 09-09-2019 Planned Disposition: Home Primary Insurance: NOVFanvibeCR Discharge Planning Comments: CM RECEIVED DISCHARGE ORDER, MET WITH PT AND SPOUSE IN ROOM TO DISCUSS DISCHARGE PLANNING AND NEEDS. CISCO MCNEAL provided verbal consent to discuss current and ongoing needs with/in the presence of: FAREED. PT REPORTS LIVING AT HOME INDEPENDENTLY WITH HIS . PT HAS CANE, NEBULIZER AND WALKER WITH NO MEDICAL EQUIPMENT PROVIDER PREFERENCE. PT HAS NO OUTSIDE SERVICES ASSISTING IN THE HOME. CM DISCUSSED AVAILABILITY OF HOME HEALTH, REHAB SERVICES AND MEDICAL EQUIPMENT. PT DENIES DISCHARGE NEEDS AND PLANS TO GO HOME, REPORTS HIS WILL PICK HIM UP FOR DISCHARGE HOME. IMPORTANT MESSAGE FROM MEDICARE PROVIDED AND EXPLAINED. PT STATES THE HE DOES NOT FEEL WELL AND DOES NOT WANT TO DISCHARGE HOME TODAY. PT STATES HE WANTS A PORTABLE OXGYEN CONCENTRATOR. CM EXPLAINED OXYGEN QUALIFICATION TEST, EDUCATED PT ON MEDICARE PAYING FOR PORTABLE BOTTLES, NOT THE PORTABLE CONCENTRATOR. DR. JOHNSON ARRIVED, DISCUSSED THAT PT DID NOT QUALIFY FOR OXYGEN DURING TESTING TODAY AND THAT PT MAY STAY TONIGHT TO SEE HOW PT DOES ON MEDICATIONS WELL DR. ELIZABETH IS NOT PRIMARY DOCTOR. PT STATES THE PRIMARY DOCTOR AND NURSES ALL KNOW WHO HE IS FEELING. CM AGAIN EXPLAINED IMPORTANT MESSAGE FROM MEDICARE. PT DOES NOT PLAN TO CALL THE MEDICARE NUMBER. CM NOTIFIED BACK UP WORKER NURSE. Return To Service Inspector: Adal Lowe DCPIA - Discharge Planning Initial Assessment Updated by [email or web address]: Adal Lowe on 09/09/19 6:23 pm * Is the patient Alert and Oriented? Yes * How many steps to enter\exit or inside your home? 4-O / 1-I * PCP DR. RIVERS * Pharmacy [address] * Preadmission Environment Home with Family * ADLs Independent * Equipment Cane Nebulizer Walker * Other Equipment NO MEDICAL EQUIPMENT PROVIDER PREFERENCE * List name and contact numbers for known caregivers / representatives who currently or will assist patient after discharge: FAREED MCNEAL, SPOUSE, * Verbal permission to speak to the caregivers and representatives has been obtained from the patient. Yes * Community resources currently utilized None * Please name any agencies selected above. NONE * Additional services required to return to the preadmission environment? No * Can the patient safely return to the preadmission environment? Yes * Has this patient been hospitalized within the prior 30 days at any hospital? No Coverage Notice Reviewer: [id number] - Adal Lowe Notice Issued Date-Time: 09/09/2019 16:55 Notice Type: IM Discharge Notice Notice Delivered To: Patient Relationship to Patient: Customer Program Manager Name: Delivery Method: HAND - Hand Delivered Melanie Days: Prior Verbal Notification: Recipient Understood Notice: Yes Recipient Signature: Yes Med Rec Note Co-signed by Attending: Coverage Notice Comment: Last DP export: 09/09/19 5:24 p Patient Name: CISCO MCNEAL Page [phone] at 1846 All edits/amendments must be made on the electronic document DICTATION DATE: 09/09/191845 DATA CONVERSION DEVELOPER: PACHECO 09/09/191845 RPT#: [id number] DC DATE:09/09/19 STATUS: DIS IN [facility] [address] [place] [address] END OF REPORT
--- NOTE | 2019-09-09 19:06 | MORECARE ---
CASE MANAGEMENT DISCHARGE SUMMARY PATIENT: CISCO MCNEAL UNIT: [id number] ADM DATE: 09/06/19 AGE: 69 : 50 SEX: M ROOM/BED: D.3862 AUTHOR: YEDOC PHYSICIAN: REFERRING PHYSICIAN: RUIFNO MORRIS MD DATE OF SERVICE: 09/09/19 Discharge Plan Patient Name: CISCO MCNEAL Facility: [facility]:[place] : 1950 Planned Disposition: Home Anticipated Discharge Date: 09/09/19 Discharge Date: 09/09/2019 Expected LOS: 3 Initial Reviewer: [email or web address] Initial Review Date: 09/09/2019 Generated: 09/09/19 8:06 pm Comments DCP- Discharge Planning Updated by [email or web address]: Adal Lowe on 09/09/19 5:[address] Patient Name: CISCO MCNEAL Admission Status: ER Accout number: [id number] Admission Date: 09-06-2019 : 1950 Admission Diagnosis: Attending: RUFINO MORRIS Current LOS: 3 Anticipated DC Date: 09-09-2019 Planned Disposition: Home Primary Insurance: NOVPostcronCR Discharge Planning Comments: CM RECEIVED DISCHARGE ORDER, MET WITH PT AND SPOUSE IN ROOM TO DISCUSS DISCHARGE PLANNING AND NEEDS. CISCO MCNEAL provided verbal consent to discuss current and ongoing needs with/in the presence of: FAREED. PT REPORTS LIVING AT HOME INDEPENDENTLY WITH HIS . PT HAS CANE, NEBULIZER AND WALKER WITH NO MEDICAL EQUIPMENT PROVIDER PREFERENCE. PT HAS NO OUTSIDE SERVICES ASSISTING IN THE HOME. CM DISCUSSED AVAILABILITY OF HOME HEALTH, REHAB SERVICES AND MEDICAL EQUIPMENT. PT DENIES DISCHARGE NEEDS AND PLANS TO GO HOME, REPORTS HIS WILL PICK HIM UP FOR DISCHARGE HOME. IMPORTANT MESSAGE FROM MEDICARE PROVIDED AND EXPLAINED. PT STATES THE HE DOES NOT FEEL WELL AND DOES NOT WANT TO DISCHARGE HOME TODAY. PT STATES HE WANTS A PORTABLE OXGYEN CONCENTRATOR. CM EXPLAINED OXYGEN QUALIFICATION TEST, EDUCATED PT ON MEDICARE PAYING FOR PORTABLE BOTTLES, NOT THE PORTABLE CONCENTRATOR. DR. JOHNSON ARRIVED, DISCUSSED THAT PT DID NOT QUALIFY FOR OXYGEN DURING TESTING TODAY AND THAT PT MAY STAY TONIGHT TO SEE HOW PT DOES ON MEDICATIONS WELL DR. ELIZABETH IS NOT PRIMARY DOCTOR. PT STATES THE PRIMARY DOCTOR AND NURSES ALL KNOW WHO HE IS FEELING. CM AGAIN EXPLAINED IMPORTANT MESSAGE FROM MEDICARE. PT DOES NOT PLAN TO CALL THE MEDICARE NUMBER. CM NOTIFIED GRADER MEAT NURSE. Funding Specialist: Adal Lowe DCPIA - Discharge Planning Initial Assessment Updated by [id number]: Adal Lowe on 09/09/19 6:23 pm * Is the patient Alert and Oriented? Yes * How many steps to enter\exit or inside your home? 4-O / 1-I * PCP DR. RIVERS * Pharmacy [address] * Preadmission Environment Home with Family * ADLs Independent * Equipment Cane Nebulizer Walker * Other Equipment NO MEDICAL EQUIPMENT PROVIDER PREFERENCE * List name and contact numbers for known caregivers / representatives who currently or will assist patient after discharge: FAREED MCNEAL, SPOUSE, * Verbal permission to speak to the caregivers and representatives has been obtained from the patient. Yes * Community resources currently utilized None * Please name any agencies selected above. NONE * Additional services required to return to the preadmission environment? No * Can the patient safely return to the preadmission environment? Yes * Has this patient been hospitalized within the prior 30 days at any hospital? No Coverage Notice Reviewer: [id number] - Adal Lowe Notice Issued Date-Time: 09/09/2019 16:55 Notice Type: IM Discharge Notice Notice Delivered To: Patient Relationship to Patient: Wind Operations Supervisor Name: Delivery Method: HAND - Hand Delivered Melanie Days: Prior Verbal Notification: Recipient Understood Notice: Yes Recipient Signature: Yes Med Rec Note Co-signed by Attending: Coverage Notice Comment: Last DP export: 09/09/19 5:46 p Patient Name: CISCO MCNEAL Page [phone] at 1906 All edits/amendments must be made on the electronic document DICTATION DATE: 09/09/191905 JUMPBASTING FACING BASTER: PACHECO 09/09/191905 RPT#: [id number] DC DATE:09/09/19 STATUS: DIS IN [facility] [address] [facility] [place] [address] END OF REPORT
[2019-09-11 17:08] LABS: IMMUNOGLOBULIN E 128 IU/mL (6-495)
--- NOTE | 2019-09-12 11:53 | EC ---
PATIENT:CISCO MCNEAL DATE OF SERVICE: 09/06/19 SEX: M MEDICAL RECORD: [id number] DATE OF : [birth year] LOCATION:D.M2 D.212 AGE OF PATIENT: 69 ADMISSION DATE: 09/06/19 REFERRING PHYSICIAN: INTERPRETING PHYSICIAN: MOIZ WRIGHT MD ECHOCARDIOGRAM REPORT ECHO CHARGES 4 ECHO COMPLETE Date: 09/07/19 CLINICAL DIAGNOSIS: CHF/DYSPNEA ECHOCARDIOGRAPHIC MEASUREMENTS (adult normal given) AC root (d.<3.7cm) 4.1 cm LV Septum d (<1.2 cm> 1.6 cm Valve Excursion 2.0 cm LV Septum (systole) 1.8 cm Left Atria (s.<4.0cm> 4.2 cm LVPW d(<1.2cm) 1.6 cm RV (d.<2.3cm) 3.2 cm LVPW (sytole) 1.9 cm LV diastole(<5.6CM) 6.0 cm MV E-F(>70mm/sec) cm LV systole 4.6 cm LVOT Diameter 2.1 cm MV exc.(>10mm) 2.0 cm Est.ejection fraction (50-75%) % DOPPLER: LVIT cm/sec A 47.0 cm/sec E 74.0 cm/sec LA cm/sec RVSP 32 mmHg LVOT 90 cm/sec AOP1/2T 399 m/s Asc. Ao 111 cm/sec RVOT 60 cm/sec RA cm/sec PA 78 cm/sec AV Gradient Peak 4.94 mmHg AV Mean 2.69 mmHg AV Area 3.0 cm MV Gradient Peak 3.29 mmHg MV Mean 1.00 mmHg MV Area cm COMMENTS: Rafter Cutting Machine Operator: 2 CODY TODD Vp Account Director: 3 Dr. Blue TAPE# PACS Pericardial Effusion N DATE OF SERVICE: ECHOCARDIOGRAM FINDINGS: 1. Left ventricular chamber size is mildly dilated. Left ventricular systolic function is moderately reduced, overall ejection fraction of 35% to 40%. 2. Left atrium is enlarged at 4.2 cm. Right atrium and right ventricular chamber sizes are within normal limits. 3. Valvular structures have normal structure and motion. ECHOCARDIOGRAM REPORT [id number] CISCO MCNEAL 4. Doppler interrogation reveals [id number] aortic insufficiency, mild mitral regurgitation, mild tricuspid regurgitation, no other valvular insufficiency or stenosis. Pulmonary systolic pressure estimated at 32 mmHg. 5. No evidence of pericardial effusion or left ventricular thrombus. TRANSINT:[id number] Voice Confirmation ID: [id number] DOCUMENT ID: [id number] MOIZ WRIGHT MD at 1153 CC: [id number] DICTATION DATE: 09/07/19 1240 RENAL DIALYSIS TECHNICIAN: 09/07/19 1349 DIS IN 09/09/19 [place] [id number] [place] [id number]
== END 2019-09-09 18:43 | disposition home or self-care (01) | DRG 247 ==
LOC: D.ER 21:04 → D.MS 09-06 00:56 → OBSVTIME 09-06 11:58 → D.MS 09-06 17:37 → D.M2 09-06 17:37
PROVIDERS: Family Medicine; Internal Medicine Interventional Cardiology; Internal Medicine Pulmonary Disease; ADMIT Family Medicine; ATTEND Family Medicine
PROC: B2111ZZ Fluoroscopy of Multiple Coronary Arteries using Low Osmolar Contrast (ICD-10-PCS; 2019-09-08)
PROC: B2151ZZ Fluoroscopy of Left Heart using Low Osmolar Contrast (ICD-10-PCS; 2019-09-08)
PROC: 027035Z Dilation of Coronary Artery, One Artery with Two Drug-eluting Intraluminal Devices, Percutaneous Approach (ICD-10-PCS; principal; 2019-09-08 12:30)
PROC: 4A023N7 Measurement of Cardiac Sampling and Pressure, Left Heart, Percutaneous Approach (ICD-10-PCS; 2019-09-08 12:30)
DX: I25.119 Atherosclerotic heart disease of native coronary artery with unspecified angina pectoris (principal); J44.1 Chronic obstructive pulmonary disease with (acute) exacerbation; I24.8 Other forms of acute ischemic heart disease; F17.213 Nicotine dependence, cigarettes, with withdrawal; J44.0 Chronic obstructive pulmonary disease with (acute) lower respiratory infection; J20.9 Acute bronchitis, unspecified; R91.8 Other nonspecific abnormal finding of lung field; E11.21 Type 2 diabetes mellitus with diabetic nephropathy; I12.9 Hypertensive chronic kidney disease with stage 1 through stage 4 chronic kidney disease, or unspecified chronic kidney disease; E11.22 Type 2 diabetes mellitus with diabetic chronic kidney disease; N18.9 Chronic kidney disease, unspecified; E11.51 Type 2 diabetes mellitus with diabetic peripheral angiopathy without gangrene; R94.31 Abnormal electrocardiogram [ECG] [EKG]; E78.5 Hyperlipidemia, unspecified

== ENCOUNTER 2019-09-18 13:14 | Inpatient (IN) | payer OTHER ==
[~2019-09-18] VITALS: Ht 172.7 cm; Wt 83.9 kg
--- NOTE | ~2019-09-18 | HEMODYNAMI ---
PATIENT:CISCO MCNEAL MEDICAL RECORD: [id number] : 50 [facility]. D.2118 [id number] ADMISSION DATE: 09/18/19 Generatedon:09/19/20199:52 Patient name: CISCO MCNEAL Patient #: [id number] SSN: [id number] : 1950 Date of study: 09/19/2019 Page: Of Hemodynamic Procedure Report Patient Data Patient Demographics Procedure consent was obtained First Name: CISCO Gender: Male Last Name: ELIZABET : 1950 Middle Initial: PINEDA Age: 69 year(s) Patient #: [id number] Race: SSN: [id number] Additional ID: [id number] Contact details Address: [address] [place] [address] State: [place] City: [place] Zip code: [address] Past Medical History Allergies Allergen Reaction Date Comments Reported Other allergy 09/19/2019 iodine and iodide, cephalosporins, pcn, tetanus toxoid Admission Admission Data Admission Date: 09/18/2019 Admission Time: 15:50 Arrival Date: 09/19/2019 Arrival Time: 0:00 Admit Source: Other Insurance Payor: Medicare Room #: D.2118 [facility] #: [id number] Height (in.): 68.11 BSA: 1.98 (m2) Height (cm.): 173 BMI: 28.07 (kg/m2) Weight (lbs.): 185.19 Weight (kg.): 84 Lab Results Lab Result Date: 09/19/2019 Lab Result Time: 0:00 Biochemistry Name Units Result Min Max BUN mg/dl 44 --(----)-* 7 18 Creatinine mg/dl 1.2 --(---*)-- 0.6 1.3 eGFR ml/min 64.01240 *-(----)-- 90 120 NONAFRICAN CBC Name Units Result Min Max Hematocrit % 47 --(-*--)-- 42 54 Hemoglobin g/dl 16.3 --(--*-)-- 13.5 17.5 Procedure Procedure Types Cath Procedure Diagnostic Procedure C [facility] w/Coronaries Procedure Description Procedure Date Procedure Date: 09/19/2019 Procedure Start Time: 9:34 Procedure End Time: 9:50 Procedure Staff Name Function Anish Nolan MD Performing Physician Og Flores RN Nurse Felipa oKlb RT Scrub Stephanie Ulloa RT Monitor Procedure Data Cath Procedure Fluoroscopy Diagnostic fluoroscopy Total fluoroscopy Time: 3.1 time: 3.1 min min Diagnostic fluoroscopy Total fluoroscopy dose: 717 dose: 717 mGy mGy Contrast Material Contrast Material Type Amount (ml) Isovue 300 72 Entry Location Entry Primary Successful Side Size Upsize Upsize Entry Closure Succes sful Closure Location (Fr) 1 (Fr) 2 (Fr) Remarks Device Remarks Femoral Right 5 Fr Exoseal artery Estimated blood loss: 5 ml Diagnostic catheters Device Type Used For End Catheter Placement MULTIPACK 3DRC 5Fr Right Coronary catheter Angiography MULTIPACK JL 4.0 5Fr Left Coronary catheter Angiography MULTIPACK Pigtail 5 Fr LV Angiography catheter Procedure Complications No complications Procedure Medications Medication Administration Route Dosage Oxygen etCO2 Nasal cannula 2 l/min Lidocaine 2% added to field 20 Heparin Flush Bag added to field 2 bags (1000units/500ml NS) 0.9% NaCl I.V. 100 ml/hr Versed I.V. 1 mg Fentanyl I.V. 50 mcg Versed I.V. 1 mg Fentanyl I.V. 50 mcg Fentanyl I.V. 50 mcg Hemodynamics Rest BSA: 1.98 (m2) O2 Consumption: Estimated: 231.19 (ml/min) O2 Consumption indexed : Estimated:116.76 (ml/min/m) Heart Rate: 72 (bpm) Pressure Samples Time Site Value (mmHg) Purpose Heart Use Rate(bpm) 9:44 LV 162/13,15 Snapshot 72 Gradients Valve Time Site Site Mean SEP/DFP Peak To Heart Use 1 2 (mmHg) (sec/min) Peak Rate (mmHg) (bpm) Aortic 9:45 LV AO 77 Snapshots Pre Cath Intra NCS Post Cath Vital Signs Time Heart Resp SPO2 etCO2 NIBP (mmHg) Rhythm Pain Sedation Rate (ipm) (%) (mmHg) Status Level (bpm) 9:28:43 82 26 95 21.6 Measuring NSR 0 (11) 10(A) , No pain 9:29:22 81 24 95 34.2 183/97(142) NSR 0 (11) 10(A) , No pain 9:33:44 84 20 95 0 180/99(137) NSR 0 (11) 10(A) , No pain 9:38:07 81 17 95 0 177/96(136) NSR 0 (11) 9(A) , No pain 9:42:27 82 16 95 0 175/91(141) NSR 0 (11) 9(A) , No pain 9:46:49 81 17 95 0 180/92(132) NSR 0 (11) 10(A) , No pain Medications Time Medication Route Dose Verified Delivered Reason Notes Effe ctiveness by by 9:27:04 Oxygen etCO2 2 Anish Buffie used for Nasal l/min [facility] internal security manager cannula 9:27:12 Lidocaine 2% added 20ml Anish Anish for local to vial [facility] anesthetic field MD GARZA 9:27:18 Heparin Flush added 2 Anish Anish used for Bag to bags [facility] procedure (1000units/500ml field MD GARZA NS) 9:27:26 0.9% NaCl I.V. 100 Anish Buffie Per ml/hr [facility] RN physician 9:32:04 Versed I.V. 1 mg Anish Buffie for [facility]bee Flores RN sedation 9:32:11 Fentanyl I.V. 50 Anish Buffie for [facility] [place]vid[place] Flores RN sedation 9:35:52 Versed I.V. 1 mg [facility]ish Buffie [facility] 9:35:55 Fentanyl I.V. 50 Anish Buffie for [facility] RN sedation 9:40:02 Fentanyl I.V. 50 Anish Buffie for [facility] RN sedation Procedure Log Time Note 8:43:45 Informed consent obtained and on chart 8:44:23 Procedure Status Urgent Heart Cath (IP). 8:44:24 Time tracking: Regular hours (M-F 7:00 - 5:00) 8:44:26 Plan of Care:Hemodynamics will remain stable., Cardiac rhythm will remain stable., Comfort level will be maintained., Respiratory function will remain adequate., Patient/ family verbilizes understanding of procedure., Procedure tolerated without complication., Recovers from procedure without complications.. 8:44:36 H&P Date Dictated: 09/19/2019 ER History on chart.. 8:48:55 Patient allergic to Other allergyiodine and iodide, cephalosporins, pcn, tetanus toxoid 8:49:27 Lab Result : BUN 44 mg/dl 8:49:27 Lab Result : Creatinine 1.2 mg/dl 8:49:27 Lab Result : eGFR NONAFRICAN 64.17970 ml/min 8:49:27 Lab Result : Hemoglobin 16.3 g/dl 8:49:27 Lab Result : Hematocrit 47 % 8:49:34 Stress Test: no; N/A ? 8:50:06 Og Flores RN sent for patient. Start room use. 9:12:18 Patient received from Med II to CCL 1 Alert and oriented. Tansferred to table in Supine position. 9:12:19 Warm blankets applied, and dex hugger turned on for patient comfort. 9:12:20 Correct patient and procedure confirmed by team. 9:12:21 ECG and BP/O2 sat monitors applied to patient. 9:12:23 Pre-procedure instructions explained to patient. 9:12:23 Pre-op teaching completed and patient verbalized understanding. 9:12:27 Patient NPO since Midnight. 9:12:53 Alarms reviewed by R. N. 9:12:54 Sharps counted by scrub and verified by R.N. 9:13:00 Patient pain scale 0/10 ?. 9:15:26 Is the patient allergic to Iodine/contrast media? Yes. 9:15:27 Was the patient premedicated? Yes 9:15:28 Is patient on blood thinner?Yes 9:15:30 ACC The patient was administered the following blood thiners within the last 24 hours: ACCPlavix 9:15:32 Patient diabetic? No. 9:15:35 Previous problem with sedation/anesthesia? No ? 9:15:36 Snore? Yes 9:15:41 Sleep apnea? No 9:15:42 Deviated septum? No 9:15:43 Opens mouth fully? Yes 9:15:44 Sticks out tongue? Yes 9:15:52 Airway obstruction? Yes ASTHMA, COPD 9:15:57 Dentures? No ? 9:16:03 Pre procedure: right dorsailis pedis pulse 1+ Palpable, but thready & weak; easily obliterated 9:16:07 IV patent on arrival in right antecubital with 0.9% NaCl at O. 9:16:08 Lab results completed and on chart. 9:26:54 Vital chart was started 9:27:04 Oxygen 2 l/min etCO2 Nasal cannula was administered by Og Flores RN; used for procedure; Verbal order read back and verified. 9:27:12 Lidocaine 2% 20ml vial added to field was administered by Anish Nolan MD; for local anesthetic; Verbal order read back and verified. 9:27:18 Heparin Flush Bag (1000units/500ml NS) 2 bags added to field was administered by Anish Nolan MD; used for procedure; Verbal order read back and verified. 9:27:26 0.9% NaCl 100 ml/hr I.V. was administered by Og Flores RN; Per physician; Verbal order read back and verified. 9:29:25 Arrival Date: 09/19/2019 12:00:00 AM 9:29:51 Insurance Payor : Medicare 9:30:03 Patient Height : 68.11 inches 9:30:09 Patient Weight : 185.19 lbs 9:30:17 Admit Source: Other 9:31:46 Physician arrived 9:31:47 --------ALL STOP TIME OUT------ 9:31:47 Final Timeout: patient, procedure, and site verified with staff and physician. All members of the team are in agreement. 9:31:51 Right groin site verified by team. 9:31:59 Fire Safety Assessment: A--An alcohol-based skin anteseptic being used preoperatively., C--Open oxygen or nitrous oxide is being used., D--An ESU, laser, or fiber-optic light is being used. 9:32:04 Versed 1 mg I.V. was administered by Og Flores RN; for sedation; Verbal order read back and verified. 9:32:04 Physical assessment completed. ASA score P 2 - A patient with mild systemic disease as per Anish Nolan MD. 9:32:11 Fentanyl 50 mcg I.V. was administered by Og Flores RN; for sedation; Verbal order read back and verified. 9:32:12 2) 60-89 Mildly reduced kidney function, and other findings (as for stage 1) point to kidney disease. 9:32:17 Maximum allowable contrast dose (3.7 X eGFR X 0.75)178 ml. 9:32:23 Sedation plan: IV Moderate Sedation Medication:Versed, Fentanyl 9:32:30 Use device set Femoral Dx 9:32:32 ACIST Syringe (92968) opened to sterile field. 9:32:33 Bag Decanter (2002S) opened to sterile field. 9:32:33 Medline Cath Pack ([id number]) opened to sterile field. 9:32:35 ACIST Hand Control (79600) opened to sterile field. 9:32:36 ACIST Manifold (30312) opened to sterile field. 9:32:37 DIAGNOSTIC Multipack 5Fr catheter set (EJ6362) opened to sterile field. 9:32:38 Tegaderm 4 x 4 (1626W) opened to sterile field. 9:32:41 SHEATH 5FR [place] (SDW053) opened to sterile field. 9:32:42 EMERALD Guide Wire (942-435) opened to sterile field. 9:34:07 Procedure started. 9:34:07 Full Disclosure recording started 9:34:10 Zero performed for pressure channel P1 9:34:46 Local anesthetic to right femoral artery with Lidocaine 2% by Anish Nolan MD.INITIAL ACCESS ONLY 9:35:52 Versed 1 mg I.V. was administered by Og Flores RN; for sedation; Verbal order read back and verified. 9:35:55 Fentanyl 50 mcg I.V. was administered by Og Flores RN; for sedation; Verbal order read back and verified. 9:36:52 GLIDE WIRE Super Stiff Angled 260cm (CH7189) opened to sterile field. 9:37:31 A 5 Fr sheath was inserted into the Right Femoral artery 9:38:10 A MULTIPACK 3DRC 5Fr catheter was advanced over the wire and used for Right Coronary Angiography. 9:39:15 RCA angiography performed. 9:39:25 Injector settings: Ml/sec: 3, Volume: 6, 9:39:32 Catheter removed. 9:40:02 Fentanyl 50 mcg I.V. was administered by Og Flores RN; for sedation; Verbal order read back and verified. 9:40:41 A MULTIPACK JL 4.0 5Fr catheter was advanced over the wire and used for Left Coronary Angiography. 9:41:13 LCA angiography performed. 9:42:14 Injector settings: Ml/sec: 3, Volume: 6, 9:43:45 Catheter removed. 9:44:27 A MULTIPACK Pigtail 5 Fr catheter was advanced over the wire and used for LV Angiography. 9:44:29 EXOSEAL 5Fr (EX500) opened to sterile field. 9:45:09 LV gram done using AGARWAL 9:45:21 EF : 25 % 9:45:30 LV hemodynamics recorded. 9:45:33 Injector settings: Ml/sec: 5, Volume: 15, 9:45:36 Catheter removed. 9:46:03 Sheath removed intact; hemostasis achieved with Exoseal to the Right Femoral artery. 9:46:08 Procedure ended.(Physican Out) 9:46:29 Contrast amount:Isovue 300 72ml. 9:46:33 Maximum allowable dose exceeded? No. 9:46:53 Fluoroscopy time 03.10 minutes. 9:47:02 Fluoroscopy dose: 717 mGy 9:47:02 Flurop Dose total: 717 9:47:12 Dose Area Product 23029 mGy/cm. 9:47:16 Sharps counted by scrub and verified by R.N. 9:47:19 Insertion/operative site no bleeding no hematoma. 9:47:24 Post-op/insertion site Right Femoral artery dressed using a 4 x 4 and Tegaderm. 9:47:30 Post right femoral artery:stable 9:47:33 Post Procedure Pulses reassessed and unchanged 9:47:37 Post-procedure physical assessment completed. ASA score P 2 - A patient with mild systemic disease as per Anish Nolan MD. 9:47:43 Post procedure rhythm: unchanged. 9:47:49 Estimated blood loss: 5 ml 9:47:50 Post procedure instruction explained to patient.Patient verbalizes understanding. 9:47:52 Patient needs reinforcement of post procedure teaching. 9:48:05 Procedure and supply charges have been captured, reviewed, submitted and are correct. 9:48:14 Procedure Complication : No complications 9:48:44 Vital chart was stopped 9:48:47 [facility] Findings: mild to moderate CAD (<70%) 9:48:51 Operative report dictated upon procedure completion. 9:48:52 See physician's report for complete and final results. 9:49:10 Report given to [facility]. 9:49:15 Patient transfered to [facility] with Bed. 9:50:14 Procedure ended. 9:50:14 Full Disclosure recording stopped 9:50:19 End room use (Document Last) Device Usage Item Name Manufacture Quantity Catalog Hospital Part Current Minimal L ot# / Number Charge Number Stock Stock Serial# Code ACIST Acist 1 80552 531336 188678 257935 20 Syringe Medical (43972) Systems Inc Bag Microtek 1 146156 15693 210219 5 Decanter Medical Inc. () Medline Medline 1 [id number] 724329 53390 770510 5 Cath Pack ([id number]) ACIST Hand Acist 1 29846 013207 067532 628889 5 Control Medical (36314) Systems Inc ACIST Acist 1 53941 187966 287386 534416 5 Manifold Medical (97967) Systems Inc DIAGNOSTIC Cardinal 1 QS0973 963204 38869 192344 30 Multipack Health 5Fr catheter set (SQ0638) Tegaderm 4 3M 1 1626W 282488 797754 214023 5 x 4 (1626W) SHEATH 5FR Terumo 1 CNJ675 528462 175040 195229 5 Auburn (AUV701) EMERALD Cardinal 1 502-455 970629 560445 593884 5 Guide Wire Health (502-455) GLIDE WIRE Terumo 1 JF0203 886922 780487 775259 5 Super Stiff Angled 260cm (KO7507) MULTIPACK Cardinal 1 371545 5 3DRC 5Fr Health catheter MULTIPACK Cardinal 1 101252 5 JL 4.0 5Fr Health catheter MULTIPACK Cardinal 1 839276 5 Pigtail 5 Health Fr catheter EXOSEAL 5Fr Cardinal 1 EX500 642460 620431 363267 10 (EX500) Health Signature Audit [place] Stage Time Signature Unsigned Intra-Procedure 09/19/2019 Stephanie 9:51:30 AM Artemio RT(R) (CV) Intra-Procedure 09/19/2019 Og Flores RN 9:52:03 AM Intra-Procedure 09/19/2019 Anish Cohen 9:52:31 AM Yaw [id number] [place] [address]
[~2019-09-18 13:14] MED LIST changes: +BAYER CHEWABLE81 MG PO; +CARAFATE1 G PO; +COMBIGAN OPHT DR5 ML EACH EYE; +LEVOFLOXACIN500 MG PO; +LIPITOR20 MG PO; +MUCINEX600 MG PO; +OFLOXACIN; +PRED MILD 0.1210 ML EACH EYE; +PREDNISONE10 MG PO; +PROLENSA EYE; +PULMICORT0.5 MG/21 INH; +SINGULAIR10 MG PO; +VIBRAMYCIN 100100 MG PO
[2019-09-18 13:50] LABS: HEMATOCRIT 48.9 % (42.0-54.0); HEMOGLOBIN 17.4 g/dL (13.5-17.5); MCH 30.1 pg (26.0-34.0); MCHC 35.6 g/dL (31.0-37.0); MCV 84.6 fL (80.0-100.0); MEAN PLATELET VOLUME 9.5 fL (7.4-10.4); PLATELET COUNT 178 10x3/uL (130-400); RBC 5.78 10x6/uL (4.20-6.10); RDW 15.1 % (11.5-14.5); WBC 24.1 10x3/uL (4.8-10.8)
[2019-09-18 13:55] VITALS: BP 122/77
[2019-09-18 13:57] LABS: CALC OSMOLALITY 289 mosm/kg (275-300); CALCIUM 9.2 mg/dL (8.5-10.1); CARBON DIOXIDE 26.3 mmol/L (21.0-32.0); CHLORIDE - SERUM 99 mmol/L (98-107); CREATININE - SERUM 1.3 mg/dL (0.6-1.3); GLUCOSE 267 mg/dL (74-106); POTASSIUM - SERUM 4.8 mmol/L (3.5-5.1); SODIUM 134 mmol/L (136-145); UREA NITROGEN 49 mg/dL (7-18); eGFR NON AFRICAN AMERICAN 58 mL/min (90-120)
[2019-09-18 14:00] VITALS: BP 118/76
[2019-09-18 14:19] LABS: ALBUMIN 3.4 g/dL (3.4-5.0); ALKALINE PHOSPHATASE 41 U/L (30-120); ALT (SGPT) 49 U/L (10-68); BILIRUBIN - TOTAL 0.35 mg/dL (0.2-1.3); CKMB 7.7 U/L (0.0-3.6); CREATINE KINASE 69 UL (21-232); MAGNESIUM - SERUM 2.3 mg/dL (1.8-2.4); PROTEIN - SERUM 6.6 g/dL (6.4-8.2)
[2019-09-18 14:25] LABS: INR 0.95 (0.85-1.17); PROTIME 12.6 SECONDS (11.6-15.0)
[2019-09-18 14:30] LABS: EOSINOPHILS 1 % (0-7); LYMPHOCYTES 24 % (15-50); NEUTROPHILS 75 % (40-80); PLATELET ESTIMATE NORMAL
[2019-09-18 14:36] LABS: TROPONIN-I 0.451 ng/mL (0.000-0.060)
[2019-09-18 15:00] VITALS: BP 136/73
[2019-09-18 16:00] VITALS: BP 158/85
[2019-09-18 17:15] LABS: CKMB 38.2 U/L (0.0-3.6)
[2019-09-18 17:20] LABS: CREATINE KINASE 263 UL (21-232)
[2019-09-18 17:21] LABS: TROPONIN-I 5.491 ng/mL (0.000-0.060)
[2019-09-18 17:23] VITALS: BP 173/76; BMI 28.1
[2019-09-18 20:30] VITALS: BP 158/70
[2019-09-18 22:47] LABS: CREATINE KINASE 284 UL (21-232)
[2019-09-18 22:49] LABS: TROPONIN-I 4.914 ng/mL (0.000-0.060)
[2019-09-19 00:30] VITALS: BP 156/74
[2019-09-19 04:30] VITALS: BP 120/66
[2019-09-19 04:53] LABS: BASOPHILS 0.1 % (0-2); EOSINOPHILS 0.4 % (0-7); HEMOGLOBIN 16.3 g/dL (13.5-17.5); IMMATURE GRANULOCYTES 1.4 % (0-5); LYMPHOCYTES 17.9 % (15-50); MCH 29.3 pg (26.0-34.0); MCHC 34.7 g/dL (31.0-37.0); MCV 84.5 fL (80.0-100.0); MEAN PLATELET VOLUME 9.8 fL (7.4-10.4); MONOCYTES 5.9 % (2-11); NEUTROPHILS 74.3 % (40-80); PLATELET COUNT 188 10x3/uL (130-400); RBC 5.56 10x6/uL (4.20-6.10); RDW 15.3 % (11.5-14.5); WBC 19.9 10x3/uL (4.8-10.8)
[2019-09-19 05:22] LABS: ALBUMIN 3.2 g/dL (3.4-5.0); ALKALINE PHOSPHATASE 38 U/L (30-120); ALT (SGPT) 47 U/L (10-68); BILIRUBIN - TOTAL 0.38 mg/dL (0.2-1.3); CHLORIDE - SERUM 100 mmol/L (98-107); CKMB 24.8 U/L (0.0-3.6); CREATINE KINASE 168 UL (21-232); CREATININE - SERUM 1.2 mg/dL (0.6-1.3); PROTEIN - SERUM 6.3 g/dL (6.4-8.2); SODIUM 135 mmol/L (136-145); UREA NITROGEN 44 mg/dL (7-18); eGFR NON AFRICAN AMERICAN 64 mL/min (90-120)
[2019-09-19 05:23] LABS: CALC OSMOLALITY 286 mosm/kg (275-300); GLUCOSE 198 mg/dL (74-106); TROPONIN-I 7.042 ng/mL (0.000-0.060)
[2019-09-19 06:31] LABS: CHOL - HDL RATIO 2.7 ratio (2.3-4.9); LDL-HDL RATIO 1.2 ratio (1.5-3.5)
[2019-09-19 08:43] VITALS: BP 171/85
[2019-09-19 09:01] VITALS: Ht 172.7 cm; Wt 83.9 kg
[2019-09-19 10:14] LABS: MAGNESIUM - SERUM 2.2 mg/dL (1.8-2.4); THYROID STIMULATING HORMONE 1.77 uIU/mL (0.36-3.74)
[2019-09-19 11:46] VITALS: BP 165/92
[2019-09-19 15:47] VITALS: BP 159/71
[2019-09-19 20:00] VITALS: BP 146/74
[2019-09-20 00:55] VITALS: BP 153/86
[2019-09-20 04:42] VITALS: BP 107/55
[2019-09-20 05:42] LABS: HEMATOCRIT 45.5 % (42.0-54.0); HEMOGLOBIN 15.9 g/dL (13.5-17.5); MCH 29.3 pg (26.0-34.0); MCHC 34.9 g/dL (31.0-37.0); MCV 83.9 fL (80.0-100.0); MEAN PLATELET VOLUME 9.6 fL (7.4-10.4); PLATELET COUNT 192 10x3/uL (130-400); RBC 5.42 10x6/uL (4.20-6.10); RDW 15.3 % (11.5-14.5); WBC 26.7 10x3/uL (4.8-10.8)
[2019-09-20 06:11] LABS: ANION GAP 15.2 mmol/L (8-16); CALCIUM 9.1 mg/dL (8.5-10.1); POTASSIUM - SERUM 5.2 mmol/L (3.5-5.1)
[2019-09-20 06:14] LABS: CREATININE - SERUM 1.6 mg/dL (0.6-1.3)
[2019-09-20 09:43] LABS: LYMPHOCYTES 10 % (15-50); MONOCYTES 8 % (2-11); NEUTROPHILS 78 % (40-80); PLATELET ESTIMATE NORMAL
[2019-09-20 09:58] VITALS: BP 131/62
[2019-09-20 12:56] VITALS: BP 110/52
[2019-09-20 19:28] LABS: BILIRUBIN NEGATIVE (NEGATIVE); GLUCOSE 250 mg/dL (NEGATIVE); KETONE NEGATIVE (NEGATIVE); NITRITE NEGATIVE (NEGATIVE); UROBILINOGEN NORMAL (NORMAL)
[2019-09-20 20:00] VITALS: BP 146/78
[2019-09-21] VITALS: BP 131/62
[2019-09-21 04:00] VITALS: BP 165/75
[2019-09-21 07:27] LABS: BASOPHILS 0.1 % (0-2); EOSINOPHILS 0.4 % (0-7); HEMATOCRIT 44.4 % (42.0-54.0); MCH 28.8 pg (26.0-34.0); MCHC 33.8 g/dL (31.0-37.0); MCV 85.4 fL (80.0-100.0); MEAN PLATELET VOLUME 9.9 fL (7.4-10.4); MONOCYTES 7.8 % (2-11); NEUTROPHILS 68.7 % (40-80); PLATELET COUNT 154 10x3/uL (130-400); RDW 15.7 % (11.5-14.5)
[2019-09-21 07:28] LABS: ANION GAP 9.6 mmol/L (8-16); CALCIUM 8.3 mg/dL (8.5-10.1); CARBON DIOXIDE 28.9 mmol/L (21.0-32.0); POTASSIUM - SERUM 4.5 mmol/L (3.5-5.1)
[2019-09-21 07:30] LABS: CREATININE - SERUM 1.1 mg/dL (0.6-1.3)
[2019-09-21 07:35] LABS: WBC 17.7 10x3/uL (4.8-10.8)
--- NOTE | 2019-09-21 08:19 | OP ---
PATIENT NAME: CISCO MCNEAL MEDICAL RECORD: [id number] :50 LOCATION:D.M2 D.2118 ADMISSION DATE:09/18/19 SURGEON: HELENA FOSS MD DATE OF OPERATION: 09/19/2019 PROCEDURE: Left heart catheterization, selective coronary angiography, right femoral artery approach. CATHETERS: A 5-Luxembourgish sheath, 5/4 left and right Todd, 5/4 pig. The procedure was well tolerated. The patient was returned to the joy, sheath removed. ExoSeal device placed. FINDINGS: The left ventriculography in 30-degree AGARWAL view: Diffuse global hypokinesis, reduced EF 20% to 25%. CORONARY ANATOMY: LEFT MAIN: Left main is free of disease. LAD: LAD in the area of previous stenting is widely patent without evidence of thrombosis or restenosis. CIRCUMFLEX: Circumflex somewhat codominant system, has some diffuse distal disease, no flow obstructive. RIGHT CORONARY: Again, codominant, there was some distal disease. No flow obstructive stenosis. IMPRESSION: Cardiomyopathy. This is in excess of his coronary artery disease, stents are widely patent. We will add Aldactone as well as long-acting nitrates, might benefit from Entresto in the future. Further recommendations based on clinical course. TRANSINT:[id number] Voice Confirmation ID: [id number] DOCUMENT ID: [id number] HELENA FOSS MD at 0819 CC: [id number] DICTATION DATE: 09/19/19 0955 CHEMICAL MILLING PROCESSOR: 09/19/19 1239 ADM IN [id number] [place] [address]
[2019-09-21 09:00] VITALS: BP 139/67
[2019-09-21 12:00] VITALS: BP 99/50
[2019-09-21] MEDS ORDERED: ALDACTONE25 MG PO (13:33)
[2019-09-21] MEDS ORDERED: ISOSORBIDE MONO60 M1 PO (13:33)
--- NOTE | 2019-09-21 16:34 | MORECARE ---
CASE MANAGEMENT DISCHARGE SUMMARY PATIENT: CISCO MCNEAL UNIT: [id number] ADM DATE: 09/18/19 AGE: 69 : 50 SEX: M ROOM/BED: D.8238 AUTHOR: APRIL BELCHER PHYSICIAN: REFERRING PHYSICIAN: MARY GUTIERREZ MD DATE OF SERVICE: 09/21/19 Discharge Plan Patient Name: CISCO MCNEAL Facility: [facility]:[place] : 1950 Planned Disposition: Home Anticipated Discharge Date: 09/21/19 Discharge Date: 09/21/2019 Expected LOS: 3 Initial Reviewer: [email or web address] Initial Review Date: 09/18/2019 Generated: 09/21/19 5:34 pm Comments DCP- Discharge Planning Updated by [email or web address]: Adal Lowe on 09/21/19 3:[address] Patient Name: CISCO MCNEAL Admission Status: ER Accout number: [id number] Admission Date: 09-18-2019 : 1950 Admission Diagnosis: Attending: MARY GUTIERREZ Current LOS: 3 Anticipated DC Date: 09-21-2019 Planned Disposition: Home Primary Insurance: [employer]OV[employer] Discharge Planning Comments: CM MET WITH PT IN ROOM TO DISCUSS DISCHARGE PLANNING AND NEEDS. PT REPORTS LIVING AT HOME INDEPENDENTLY WITH SPOUSE. PT HAS CANE, NEBULIZER AND WALKER WITH NO MEDICAL EQUIPMENT PROVIDER PREFERENCE. PT HAS NO OUTSIDE SERVICES ASSISTING IN THE HOME. CM DISCUSSED AVAILABILITY OF HOME HEALTH, REHAB SERVICES AND MEDICAL EQUIPMENT. PT DENIES DISCHARGE NEEDS, REPORTS HIS WILL PICK HIM UP FOR DISCHARGE HOME. IMPORTANT MESSAGE FROM MEDICARE PROVIDED AND EXPLAINED. SURETY BOND AGENT NURSE NOTIFIED. Design Technology Professor: Adal Lowe DCPIA - Discharge Planning Initial Assessment Updated by [email or web address]: Adal Lowe on 09/21/19 4:27 pm * Is the patient Alert and Oriented? Yes * How many steps to enter\exit or inside your home? 4-O/1-I * PCP DR. RIVERS * Pharmacy [facility] * Preadmission Environment Home with Family * ADLs Independent * Equipment Cane Nebulizer Walker * Other Equipment NO MEDICAL EQUIPMENT PROVIDER PREFERENCE * List name and contact numbers for known caregivers / representatives who currently or will assist patient after discharge: FAREED MCNEAL, SPOUSE, * Verbal permission to speak to the caregivers and representatives has been obtained from the patient. Yes * Community resources currently utilized None * Please name any agencies selected above. NONE * Additional services required to return to the preadmission environment? No * Can the patient safely return to the preadmission environment? Yes * Has this patient been hospitalized within the prior 30 days at any hospital? Yes Coverage Notice Reviewer: [email or web address] Sole Lowe Notice Issued Date-Time: 09/21/2019 15:00 Notice Type: IM Discharge Notice Notice Delivered To: Patient Relationship to Patient: Back Tufter Name: Delivery Method: HAND - Hand Delivered Melanie Days: Prior Verbal Notification: Recipient Understood Notice: Yes Recipient Signature: Yes Med Rec Note Co-signed by Attending: Coverage Notice Comment: Patient Name: CISCO MCNEAL Page 38530 at 1634 All edits/amendments must be made on the electronic document DICTATION DATE: 09/21/19 1634 BUILDING PERFORMANCE SPECIALIST: PACHECO 09/21/19 1634 RPT#: [id number] DC DATE:09/21/19 STATUS: DIS IN [facility] [address] [place] [address] END OF REPORT
== END 2019-09-21 16:07 | disposition home or self-care (01) | DRG 280 ==
LOC: D.ER 13:14 → D.M2 15:50
PROVIDERS: Family Medicine; Internal Medicine Cardiovascular Disease; ADMIT Internal Medicine Nephrology; ATTEND Internal Medicine Nephrology
DX: I21.4 Non-ST elevation (NSTEMI) myocardial infarction (principal); J18.9 Pneumonia, unspecified organism; I50.20 Unspecified systolic (congestive) heart failure; F17.203 Nicotine dependence unspecified, with withdrawal; I25.10 Atherosclerotic heart disease of native coronary artery without angina pectoris; I11.0 Hypertensive heart disease with heart failure; J44.9 Chronic obstructive pulmonary disease, unspecified; I35.1 Nonrheumatic aortic (valve) insufficiency

== ENCOUNTER 2020-02-25 19:45 | Emergency (ER) | payer OTHER ==
[~2020-02-25] VITALS: Ht 172.7 cm; Wt 79.5 kg
[~2020-02-25 19:45] MED LIST changes: +ALDACTONE25 MG PO; +ISOSORBIDE MONO60 M1 PO
[2020-02-25 19:50] VITALS: Ht 172.7 cm; Wt 79.5 kg
[2020-02-25] MEDS ORDERED: DOXYCYCLINE HY100 M2 PO (20:47)
[2020-02-25] MEDS ORDERED: MUCINEX DM ER1 EAC1 PO (20:47)
[2020-02-25 21:20] VITALS: BP 157/89
== END 2020-02-25 21:20 | disposition home or self-care (01) ==
LOC: D.ER 19:45
DX: J44.9 Chronic obstructive pulmonary disease, unspecified (principal); J01.90 Acute sinusitis, unspecified; J18.9 Pneumonia, unspecified organism; I10 Essential (primary) hypertension; Z72.0 Tobacco use; R06.02 Shortness of breath